=== PATIENT | female | born 1965 | race Caucasian/White ===

== ENCOUNTER → 2017-09-17 | Outpatient (CLI) | payer OTHER ==
[~2017-09-17] MED LIST: ALBU90I INH; CIPR500 PO; DIAZ10 PO; DULO60 PO; FLUO20 PO; HYDACE5 PO; IBUP800 PO; LAMO25 PO; LOVENOX; OXYACE7.5T PO; OXYC5 PO; PHENA200 PO; PRED20 PO; PROCODE120 PO; Percocet 5-3251 EACH PO; QUET25 PO
== END | disposition home or self-care (01) ==
LOC: LAB 15:19
DX: R30.0 Dysuria (principal)
CPT/HCPCS: 87077; 87086; 87186

== ENCOUNTER → 2018-12-24 | Outpatient (CLI) | payer OTHER | END | disposition home or self-care (01) | LOC: LAB 17:48 → LAB SHORT 17:48 | DX: N30.01 Acute cystitis with hematuria (principal); R30.0 Dysuria | CPT/HCPCS: 87077; 87086; 87186 ==

== ENCOUNTER 2020-08-20 23:13 | Observation (INO) | payer OTHER ==
[~2020-08-20] VITALS: Ht 172.7 cm; Wt 117.4 kg
[~2020-08-20 23:13] MED LIST changes: +LAMO100 PO; -LAMO25 PO
[2020-08-20 23:50] LABS: BASOPHILS ABSOLUTE AUTO 0.08 K/mm3 (0.00-0.23); BASOPHILS PERCENT AUTO 1 % (0-2); EOSINOPHILS ABSOLUTE AUTO 0.12 K/mm3 (0.00-0.68); EOSINOPHILS PERCENT AUTO 1 % (0-6); Hemoglobin 14.4 g/dL (11.5-16.0); IMMATURE GRAN ABSOLUTE AUTO 0.06 K/mm3 (0.00-0.10); IMMATURE GRAN PERCENT AUTO 1 % (0-1); LYMPHOCYTES ABSOLUTE AUTO 1.74 K/mm3 (0.84-5.20); LYMPHOCYTES PERCENT AUTO 20 % (21-46); MONOCYTES ABSOLUTE AUTO 0.94 K/mm3 (0.16-1.47); MONOCYTES PERCENT AUTO 11 % (4-13); Mean Corpuscular HGB 30.3 pg (26.0-34.0); Mean Corpuscular HGB Conc 32.7 g/dL (31.5-36.5); Mean Corpuscular Volume 93 fL (80-100); Mean Platelet Volume 9.8 fL (9.1-12.4); NEUTROPHILS ABSOLUTE AUTO 5.81 K/mm3 (1.96-9.15); NEUTROPHILS PERCENT AUTO 66 % (41-73); Platelet Count 313 K/mm3 (150-400); RDW Coefficient Variation 12.9 % (11.7-14.2); RDW Standard Deviation 43.5 fL (35.1-46.3); Red Blood Cell Count 4.75 M/mm3 (3.80-5.20); White Blood Cell Count 8.75 K/mm3 (4.00-11.30)
[2020-08-21 00:12] LABS: Alanine Aminotransfer (ALT/SGP 50 U/L (12-78); Albumin, Blood 3.3 g/dL (3.4-5.0); Albumin/Globulin Ratio 0.8 (0.8-1.8); Alk Phos 207 U/L (50-136); Anion Gap 5 mmol/L (6-16); Aspartate Aminotrans (AST/SGOT 19 U/L (12-37); Bilirubin, Total 0.6 mg/dL (0.1-1.0); Blood Urea Nitrogen 16 mg/dL (8-24); Bun/Creatinine Ratio 17.4 (12.0-20.0); CO2, Blood 26 mmol/L (21-32); Chloride, Blood 109 mmol/L (98-108); Creatinine, Blood 0.92 mg/dL (0.40-1.00); Globulin, Blood 4.1 g/dL (2.2-4.0); Glomerular Filtration Rate >60 (60-); Glucose, Blood 139 mg/dL (70-99); Potassium, Blood 3.8 mmol/L (3.5-5.5); Sodium, Blood 140 mmol/L (136-145); Total Protein, Blood 7.4 g/dL (6.4-8.2); Troponin I <0.015 ng/mL (0.000-0.040)
[2020-08-21 05:55] LABS: Influenza A, PCR Negative (NEGATIVE); Influenza B, PCR Negative (NEGATIVE); Resp Syncytial Virus, PCR Negative (NEGATIVE); SARS-Cov-2 (COVID-19) PCR, MMC Negative (NEGATIVE)
[2020-08-21 08:51] LABS: BASOPHILS ABSOLUTE AUTO 0.07 K/mm3 (0.00-0.23); BASOPHILS PERCENT AUTO 1 % (0-2); EOSINOPHILS ABSOLUTE AUTO 0.15 K/mm3 (0.00-0.68); EOSINOPHILS PERCENT AUTO 2 % (0-6); Hematocrit 43.1 % (33.0-51.0); IMMATURE GRAN ABSOLUTE AUTO 0.07 K/mm3 (0.00-0.10); IMMATURE GRAN PERCENT AUTO 1 % (0-1); LYMPHOCYTES ABSOLUTE AUTO 1.58 K/mm3 (0.84-5.20); LYMPHOCYTES PERCENT AUTO 20 % (21-46); MONOCYTES ABSOLUTE AUTO 0.66 K/mm3 (0.16-1.47); MONOCYTES PERCENT AUTO 8 % (4-13); Mean Corpuscular HGB 29.9 pg (26.0-34.0); Mean Corpuscular HGB Conc 32.5 g/dL (31.5-36.5); Mean Corpuscular Volume 92 fL (80-100); Mean Platelet Volume 9.9 fL (9.1-12.4); NEUTROPHILS ABSOLUTE AUTO 5.59 K/mm3 (1.96-9.15); NEUTROPHILS PERCENT AUTO 69 % (41-73); Platelet Count 299 K/mm3 (150-400); RDW Coefficient Variation 12.9 % (11.7-14.2); RDW Standard Deviation 42.7 fL (35.1-46.3); Red Blood Cell Count 4.69 M/mm3 (3.80-5.20); White Blood Cell Count 8.12 K/mm3 (4.00-11.30)
[2020-08-21 09:14] LABS: Alanine Aminotransfer (ALT/SGP 49 U/L (12-78); Albumin, Blood 3.3 g/dL (3.4-5.0); Albumin/Globulin Ratio 0.8 (0.8-1.8); Alk Phos 195 U/L (50-136); Anion Gap 9 mmol/L (6-16); Aspartate Aminotrans (AST/SGOT 20 U/L (12-37); Bilirubin, Total 1.1 mg/dL (0.1-1.0); Blood Urea Nitrogen 15 mg/dL (8-24); Bun/Creatinine Ratio 19.9 (12.0-20.0); CO2, Blood 26 mmol/L (21-32); CPK Creatine Kinase 53 U/L (26-193); Calcium, Blood 8.9 mg/dL (8.5-10.1); Chloride, Blood 106 mmol/L (98-108); Creatinine, Blood 0.75 mg/dL (0.40-1.00); Globulin, Blood 4.2 g/dL (2.2-4.0); Glomerular Filtration Rate >60 (60-); Glucose, Blood 132 mg/dL (70-99); Potassium, Blood 3.7 mmol/L (3.5-5.5); Sodium, Blood 141 mmol/L (136-145); Total Protein, Blood 7.5 g/dL (6.4-8.2); Troponin I <0.015 ng/mL (0.000-0.040)
[2020-08-21] MEDS ORDERED: Fluocinonide15 GM TOP (12:49)
--- NOTE | 2020-08-21 14:28 | NUR ---
PT ARRIVED IN THE UNIT VIA STRETCHER, PT WAS ABLE TO TRANSFER SBA TO PCU BED, REPORT RECEIVED FROM THAIS WAYNE. PT IS HERE FOR NEW ONSET OF AFIB, CHF AND PNA. PT WAS ON CARDIZEM GTT AT 10MG/HR AND HEPARIN GTT AT 15U/KG/HR. VITALS UPON ARRIVAL HRR AFIB 120-125'S, BP SYSTOLIC 150'S, SATS ABOVE 94% ON RA, AFEBRILE. CARDIZEM GTT TURNED UP TO 15MG/HR PT HR INCREASES UP TO 150'S WITH EXERTION, PT STATED SHE DIDN'T HAVE ANY CHEST PAIN BUT GETS SOB WITH EXERTION AND FEELS THE FLUTTER IN HER CHEST. PT ALERT AND ORIENTED AT BASELINE, PLEASANT AND COOPERATIVE, SBA TO BSC. PT C/O HEADACHE TYLENOL GIVEN SLIGHTLY EFFECTIVE OFFERED COLD WASHCLOTH/ICE PACK. MOLD MAKING SUPERVISOR IN THE ROOM AT THIS TIME DOING ECHO. PT ATE LUNCH WITH NO ISSUES, ABLE TO MAKE NEEDS KNOWN WILL MONITOR UNTIL END OF SHIFT
[2020-08-21 16:49] LABS: CPK Creatine Kinase 72 U/L (26-193); Troponin I <0.015 ng/mL (0.000-0.040)
[2020-08-22 02:36] LABS: Hematocrit 39.8 % (33.0-51.0); Hemoglobin 13.5 g/dL (11.5-16.0); Mean Corpuscular HGB Conc 33.9 g/dL (31.5-36.5); Mean Corpuscular Volume 92 fL (80-100); Mean Platelet Volume 9.8 fL (9.1-12.4); Platelet Count 269 K/mm3 (150-400); RDW Coefficient Variation 12.6 % (11.7-14.2); RDW Standard Deviation 41.8 fL (35.1-46.3); Red Blood Cell Count 4.35 M/mm3 (3.80-5.20); White Blood Cell Count 5.26 K/mm3 (4.00-11.30)
[2020-08-22 02:55] LABS: Albumin, Blood 2.9 g/dL (3.4-5.0); Anion Gap 9 mmol/L (6-16); Blood Urea Nitrogen 15 mg/dL (8-24); Bun/Creatinine Ratio 24.4 (12.0-20.0); CO2, Blood 24 mmol/L (21-32); Calcium, Blood 8.6 mg/dL (8.5-10.1); Chloride, Blood 105 mmol/L (98-108); Creatinine, Blood 0.62 mg/dL (0.40-1.00); Glomerular Filtration Rate >60 (60-); Glucose, Blood 107 mg/dL (70-99); Phosphorus, Blood 3.9 mg/dL (2.5-4.9); Potassium, Blood 3.7 mmol/L (3.5-5.5); Sodium, Blood 138 mmol/L (136-145)
--- NOTE | 2020-08-22 04:42 | NUR ---
SHIFT SUMMARY PATIENT IS ALERT AND ORIENTED AND COOPERATIVE WITH CARE. SLEPT OFF AND ON MOST THE NIGHT. SBA TO THE BATHROOM BECAUSE OF IV LINES AND REPOSITIONS SELF IN BED. 02 SATS >95% ON RA. CARDIZEM DRIP TITRATED TO 10MG/10ML @0209 PT IS A.FIB @104 BPM. CALL LIGHT IN REACH.
--- NOTE | 2020-08-22 17:02 | NUR ---
PT SUMMARY: PT CONVERTED BACK TO SINUS RHYTHM AT 1310 TODAY RATE 70-80'S CARDIZEM GTT WAS STOPPED, PT HAD 3 SEC PAUSE PRIOR TO CONVERSION DR CANTU MADE AWARE, BP SYSTOLIC 108-130'S, SATS ABOVE 95% ON RA, AFEBRILE. HEPARIN GTT WAS STOPPED PT TO START TAKING ASPIRIN 160MG, PT FOR POSS DC IN AM IF STABLE. PT DENIES CHEST PAIN/PRESSURE, MILD SOB. PT GETS UP AND AMBULATE TO THE BATHROOM WITH NO ISSUES, NO OTHER ISSUES ENCOUNTERED FOR THE SHIFT, PT PLEASANT AND COOPERATIVE, WILL MONITOR UNTIL END OF SHIFT.
--- NOTE | 2020-08-23 04:50 | NUR ---
SHIFT SUMMARY PATIENT IS A&O X4, INDEPENDENT IN ROOM. NO COMPLAINTS OF PAIN. SLEPT MOST THE SHIFT. PATIENT STAYED NSR @70-80s THROUGHOUT THE ENITRE SHIFT. 02 SATS 93-95% ON RA, NO COMPLAINTS OF SOB. VSS, NO ACUTE CHANGES. CALL LIGHT IN REACH.
[2020-08-23 05:03] LABS: Anion Gap 6 mmol/L (6-16); Blood Urea Nitrogen 20 mg/dL (8-24); Bun/Creatinine Ratio 24.8 (12.0-20.0); CO2, Blood 27 mmol/L (21-32); Calcium, Blood 8.7 mg/dL (8.5-10.1); Chloride, Blood 106 mmol/L (98-108); Creatinine, Blood 0.81 mg/dL (0.40-1.00); Glomerular Filtration Rate >60 (60-); Glucose, Blood 121 mg/dL (70-99); Phosphorus, Blood 3.6 mg/dL (2.5-4.9); Sodium, Blood 139 mmol/L (136-145)
[2020-08-23] MEDS ORDERED: ASPI81CH PO (10:02)
[2020-08-23] MEDS ORDERED: FURO20 PO (10:04)
[2020-08-23] MEDS ORDERED: LEVO750 PO (10:05)
[2020-08-23] MEDS ORDERED: PROBIOTIC PO (10:05)
[2020-08-23] MEDS ORDERED: Lopressor 50 mg50 MG PO (10:07)
--- NOTE | 2020-08-23 12:34 | NUR ---
DISCHARGE SUMMARY PT A&Ox4; GROGGY WHEN FIRST WAKING UP. PT SBA IN ROOM. PT DENIES PAIN, CHEST PAIN, NAUSEA, SOB, DIZZINESS/LIGHTHEADEDNESS. PT RECEIVING IV ANTIBIOICS; TRANSITIONING TO PO AT HOME. PER TELE PT NSR T/O SHIFT. VSS. NO OTHER ACUTE CHAGNES NOTED DURING SHIFT. PT AND SPOUSE EDUCATED ON DISCHARGE INSTRUCTIONS, FOLLOW UP APPOINTMENT AND MEDICATIONS. PT EDUCATED ON CHF; WEIGHT MONITORING, SYMPTOMS MANAGEMENT AND DIETARY CHAGNES; AND AFIB. PRESCRIPTIONS CALLED INTO [facility], PER PT REQUEST. PT LEFT ROOM VIA WHEELCHAIR AT 1142.
[2020-11-16] MEDS ORDERED: ELIQUIS5 MG PO (15:29)
[2020-11-16] MEDS ORDERED: GABA100 PO (15:35)
[2020-11-16] MEDS ORDERED: MULVITA PO (15:35)
== END 2020-08-23 11:43 | disposition home or self-care (01) ==
LOC: ER 23:13 → ERHOLD 23:14 → ER 08-21 01:51 → ERHOLD 08-21 01:51 → PCU 08-21 01:51 → ERHOLD 08-21 12:45 → PCU 08-23 11:43
PROVIDERS: Emergency Medicine; Internal Medicine; ADMIT Internal Medicine
PROC: 3E0234Z Introduction of Serum, Toxoid and Vaccine into Muscle, Percutaneous Approach (ICD-10-PCS; principal; 2020-08-21)
DX: I50.31 Acute diastolic (congestive) heart failure (principal); J18.9 Pneumonia, unspecified organism; I48.0 Paroxysmal atrial fibrillation; Z23 Encounter for immunization; Z20.822 Contact with and (suspected) exposure to COVID-19; E66.9 Obesity, unspecified; Z68.38 Body mass index [BMI] 38.0-38.9, adult; Z87.891 Personal history of nicotine dependence
CPT/HCPCS: 0241U; 36415; 71046; 71260; 80053; 80069; 82550; 83735; 83880; 84145; 84484; 85025; 85027; 85379; 85730; 93005; 93010; 93306; 93970; 96361; 96365; 96367; 96372; 96375; 96376; 99285-25; A9270; G0008; G0378; J0456; J0696; J1160; J1644; J1650; J1940; J1956; J3480; J7030; J7050; Q2038; Q9967

== ENCOUNTER 2020-11-23 13:32 | Day surgery (SDC) | payer OTHER ==
[~2020-11-23] VITALS: Ht 172.7 cm; Wt 116.4 kg
[~2020-11-23 13:32] MED LIST changes: +ASPI81CH PO; +ELIQUIS5 MG PO; +FURO20 PO; +Fluocinonide15 GM TOP; +GABA100 PO; +LEVO750 PO; +Lopressor 50 mg50 MG PO; +MULVITA PO; +PROBIOTIC PO
--- NOTE | 2020-11-23 15:39 | NUR ---
11/23/20 1539 Jacque Samuel DID NOT REACH CECUM PER DR PINEDA.
== END 2020-11-23 16:08 | disposition home or self-care (01) ==
LOC: ORSCSDS 13:32
PROVIDERS: Surgery
PROC: 0DBP8ZX Excision of Rectum, Via Natural or Artificial Opening Endoscopic, Diagnostic (ICD-10-PCS; principal; 2020-11-23 14:30)
PROC: 0DBM8ZX Excision of Descending Colon, Via Natural or Artificial Opening Endoscopic, Diagnostic (ICD-10-PCS; principal; 2020-11-23 14:30)
PROC: 0DBN8ZX Excision of Sigmoid Colon, Via Natural or Artificial Opening Endoscopic, Diagnostic (ICD-10-PCS; principal; 2020-11-23 14:30)
DX: Z12.11 Encounter for screening for malignant neoplasm of colon (principal); K63.5 Polyp of colon; K62.1 Rectal polyp; I48.91 Unspecified atrial fibrillation; Z79.01 Long term (current) use of anticoagulants; Z79.82 Long term (current) use of aspirin; K64.4 Residual hemorrhoidal skin tags; I10 Essential (primary) hypertension; Z87.891 Personal history of nicotine dependence; E66.01 Morbid (severe) obesity due to excess calories; Z68.39 Body mass index [BMI] 39.0-39.9, adult; Z79.899 Other long term (current) drug therapy
CPT/HCPCS: 88305; J2704; J7120

== ENCOUNTER → 2022-02-22 | Outpatient (CLI) | payer OTHER ==
[~2022-02-22] MED LIST changes: +ELIQUIS5 M3 PO; +FUROSEMIDE20 MG PO; +K-Dur20 MEQ PO; +LAMOTRIGINE100 M1 PO; +METOPROLOL TART50 M9 PO
== END | disposition home or self-care (01) ==
LOC: LAB 13:40 → LAB SHORT 13:40
DX: R30.9 Painful micturition, unspecified (principal)
CPT/HCPCS: 87077; 87086; 87186

== ENCOUNTER 2022-05-25 14:33 | Inpatient (IN) | payer OTHER ==
[~2022-05-25] VITALS: Ht 172.7 cm; Wt 109.7 kg
[~2022-05-25 14:33] MED LIST changes: -DIGOX125 MC1 PO; -DILT180 PO; -ENOX120I SC; -WARF5 PO
[2022-05-25 15:37] LABS: BASOPHILS ABSOLUTE AUTO 0.05 K/mm3 (0.00-0.23); BASOPHILS PERCENT AUTO 1 % (0-2); EOSINOPHILS ABSOLUTE AUTO 0.14 K/mm3 (0.00-0.68); EOSINOPHILS PERCENT AUTO 2 % (0-6); Hematocrit 41.5 % (33.0-51.0); Hemoglobin 13.8 g/dL (11.5-16.0); IMMATURE GRAN ABSOLUTE AUTO 0.07 K/mm3 (0.00-0.10); IMMATURE GRAN PERCENT AUTO 1 % (0-1); LYMPHOCYTES ABSOLUTE AUTO 2.48 K/mm3 (0.84-5.20); LYMPHOCYTES PERCENT AUTO 29 % (21-46); MONOCYTES ABSOLUTE AUTO 0.56 K/mm3 (0.16-1.47); MONOCYTES PERCENT AUTO 7 % (4-13); Mean Corpuscular HGB Conc 33.3 g/dL (31.5-36.5); Mean Corpuscular Volume 93 fL (80-100); Mean Platelet Volume 10.9 fL (9.1-12.4); NEUTROPHILS PERCENT AUTO 61 % (41-73); Platelet Count 336 K/mm3 (150-400); RDW Standard Deviation 43.8 fL (35.1-46.3); Red Blood Cell Count 4.45 M/mm3 (3.80-5.20)
[2022-05-25 16:35] LABS: Magnesium, Blood 1.9 mg/dL (1.6-2.4)
[2022-05-25 16:36] LABS: Bun/Creatinine Ratio 22.5 (12.0-20.0); Calcium, Blood 9.4 mg/dL (8.5-10.1); Creatinine, Blood 0.71 mg/dL (0.40-1.00); Potassium, Blood 4.3 mmol/L (3.5-5.5)
--- NOTE | 2022-05-26 01:28 | NUR ---
PT PLACED ON 2L O2 VIA NC DUE TO POSSIBLE APNEA/TEMPORARY DESATURATION. PT REMAINS A&O X4, RESPONDS TO VERBAL STIMULI, CALL LIGHT IN REACH
[2022-05-26 04:17] LABS: BASOPHILS ABSOLUTE AUTO 0.07 K/mm3 (0.00-0.23); BASOPHILS PERCENT AUTO 1 % (0-2); EOSINOPHILS ABSOLUTE AUTO 0.17 K/mm3 (0.00-0.68); EOSINOPHILS PERCENT AUTO 2 % (0-6); Hematocrit 42.4 % (33.0-51.0); Hemoglobin 13.9 g/dL (11.5-16.0); IMMATURE GRAN ABSOLUTE AUTO 0.06 K/mm3 (0.00-0.10); IMMATURE GRAN PERCENT AUTO 1 % (0-1); LYMPHOCYTES ABSOLUTE AUTO 2.35 K/mm3 (0.84-5.20); LYMPHOCYTES PERCENT AUTO 23 % (21-46); MONOCYTES ABSOLUTE AUTO 0.79 K/mm3 (0.16-1.47); MONOCYTES PERCENT AUTO 8 % (4-13); Mean Corpuscular HGB 30.5 pg (26.0-34.0); Mean Corpuscular HGB Conc 32.8 g/dL (31.5-36.5); Mean Corpuscular Volume 93 fL (80-100); Mean Platelet Volume 9.8 fL (9.1-12.4); NEUTROPHILS ABSOLUTE AUTO 6.63 K/mm3 (1.96-9.15); NEUTROPHILS PERCENT AUTO 66 % (41-73); Platelet Count 325 K/mm3 (150-400); RDW Coefficient Variation 13.2 % (11.7-14.2); RDW Standard Deviation 44.3 fL (35.1-46.3); Red Blood Cell Count 4.55 M/mm3 (3.80-5.20); White Blood Cell Count 10.07 K/mm3 (4.00-11.30)
[2022-05-26 04:40] LABS: Bun/Creatinine Ratio 24.7 (12.0-20.0); Calcium, Blood 9.2 mg/dL (8.5-10.1); Creatinine, Blood 0.81 mg/dL (0.40-1.00)
--- NOTE | 2022-05-26 06:40 | NUR ---
SUMMARY [facility] APPROX 2230, PT IS A&O X4, ON RA AT THIS TIME, SPO2 >93%, RESP UNLABORED AT REST, DID SHOW SOME APNEA WHILE SLEEPING, BP STABLE, CARDIZEM GTT INFUING @ 15ML/HR, PT REMAINS IN AFIC 110-130, CONTINUES TO DENY CP/PRESSURE. PT IS STAND BY ASSIST TO THE BATHROOM FOR SAFETY, CALLS FOR ASSISTANCE PRN. MELATONIN 10 MG X1 GIVEN FOR SLEEP, PT RESTING QUIETLY AT THIS TIME, CALL LIGHT IN REACH, WCTM & REPORT TO DAY RN
[2022-05-26 12:51] LABS: U Amphetamine Screen DETECTED; U Barbituate Screen Not Detected; U Benzodiazapine Screen Not Detected; U Buprenorphine Screen Not Detected; U Cannabinoids Screen Not Detected; U Cocaine Screen Not Detected; U Methadone Screen Not Detected; U Methamphetamine Screen DETECTED; U Opiates Screen Not Detected; U Oxycodone Screen Not Detected; U Phencyclidine Screen Not Detected; U Propoxyphene Screen Not Detected
--- NOTE | 2022-05-26 13:20 | NUR ---
DAY SHIFT NOTES: PT WAS SEEN BY PLANT MAINTENANCE ENGINEER THIS AM DR EUGENE, MEDICATIONS CHNAGED DOSE OF METOPROLOL INCREASED AND PO CARDIZEM ORDERED WELL. PT WAS THEN TITRATED OFF OF THE DILTIAZEM GTT. 5-20 MINS AFTER PO CARDIZEM AND METOPROLOL WAS GIVEN PT FAMILY AT BEDSIDE CALLED REPORTING THERE'S SOME THING GOING ON WITH THE PT, THIS RN WENT AND ASSESS PT, PT REPORTED FEELING LIGHTHEADED AND DIZZY KEEPS SAYING SHE FEELS LIKE THERE'S SOMETHING IN HER FACE AND KEEPS WIPING IT OFF, STARTED BEING RESTLESS KEEPS BLINKING HER EYES, ACTING FIDGETY. DR EUGENE STOPPED BY TO SEE PT ADVISED TO MONITOR FOR NOW SINCE VITALS ARE STABLE ALSO ORDERED UTOX AND CAME BACK POSITIVE FOR AMPHETAMINES/METHAMPETHAMINES THAT EXPLAINED PT SYMPTOMS EARLIER. NO OTHER ISSUES ENCOUNTERED HRR STILL AFIB NOW RATED CONTROLLED AT 90-100'S, BP SYSTOLIC 110'S-130'S, SATS ABOVE 90% ON RA, AFEBRILE. ECHO ONGOING IN THE PT'S ROOM AT THIS TIME. WILL CONTINUE TO MONITOR
--- NOTE | 2022-05-26 18:06 | NUR ---
PT SUMMARY: SEE PREVIOUS NOTES. PT WAS SUPPOSED TO BE DISCHARGED TODAY ASKED PROVIDER TO SPEAK WITH THE TRACK REPAIR LABORER FIRST RECOMMENDED TO KEEP PT FOR NOW PT HASN'T STARTED/BRIDGED YET TO COUMADIN. PT AGREEABLE. HRR REMAINED AFIB CONTROLLED RATE OF 90-110'S FOR THE REST OF THE SHIFT, SBP 100'S, SATS ABOVE 90% ON RA, AFEBRILE. NO OTHER ISSUES ENCOUNTERED FOR THE SHIFT, PT WAS INFORMED ABOUT UTOX RESULT EVEN IN DENIAL INFORMATION AND PLAN OF CARE WAS STILL PROVIDED, PT WAS ANXIOUS MOST OF THE TIME. PT REMAINS INDEPENDENT IN THE ROOM, ABLE TO MAKE NEEDS KNOWN WILL REPORT TO ONCOMING SHIFT
--- NOTE | 2022-05-26 20:27 | NUR ---
ASSUMPTION OF CARE THIS RN ASSUMED CARE AT 1915. PT LYING IN BED, APPEARS A LITTLE PALE AND TIRED. PT A&O X4, RESPONDING APPROPRIATELY TO QUESTIONS. PT SEEMS MILDLY ANXIOUS AND RESTLESS. DENIES CHEST PAIN OR CHEST PRESSURE, REPORT VERY MILD TIGHTNESS IN CHEST AND MILD SOB. DENIES DIZZINESS, LIGHTHEADNESS OR N/V. PT RATES TIGHTNESS A 2/10, DENIES RADIATING PAIN; REPORTS IS NOT NEW SINCE BEING IN HOSPITAL, STATES "IT SEEMS TO BE THERE WHEN I START FEELING A LITTLE SHORT OF BREATH". PT REPORTS LOWER BACK PAIN AND A SLIGHT HEADACHE; /10. MEDICATED PER EMAR. LUNG SOUNDS DIMINISHED, NO DYSPNEA NOTED. PT NOT MAKING MUCH EYE CONTACT BUT INTERACTING WITH STAFF AND PLEASANT. PT STATES IS "CONFUSED" AND "UNSURE" OF HOW DRUG USE CAN BE RELATED TO EVENT LEADING TO COMING TO HOSPITAL. EDUCATION PROVIDED, PT RECEPTIVE AND ASKS QUESTIONS. PT ALSO REPORTS NOT TAKING MEDICATIONS PRESCRIBED DUE TO "FORGETFULNESS" AND NOT HAVING ENOUGH MEDICATION. PT NOW WATCHING TV AND CALL LIGHT IN REACH
--- NOTE | 2022-05-26 21:13 | NUR ---
UPON REASSESSMENT OF PAIN, PT REPORTS RELIEF WITH PAIN LEVEL NOW 3/10. STATES SHE IS COMFORTABLE. PT APPEARS COMFORTABLE RESTING IN BED AND ON CELL PHONE. DOES NOT VERBALIZE ANY NEEDS AT THIS TIME.
[2022-05-27 03:52] LABS: BASOPHILS ABSOLUTE AUTO 0.06 K/mm3 (0.00-0.23); BASOPHILS PERCENT AUTO 1 % (0-2); EOSINOPHILS ABSOLUTE AUTO 0.17 K/mm3 (0.00-0.68); EOSINOPHILS PERCENT AUTO 2 % (0-6); Hematocrit 43.3 % (33.0-51.0); Hemoglobin 14.6 g/dL (11.5-16.0); IMMATURE GRAN ABSOLUTE AUTO 0.04 K/mm3 (0.00-0.10); IMMATURE GRAN PERCENT AUTO 1 % (0-1); LYMPHOCYTES ABSOLUTE AUTO 2.87 K/mm3 (0.84-5.20); LYMPHOCYTES PERCENT AUTO 39 % (21-46); MONOCYTES ABSOLUTE AUTO 0.61 K/mm3 (0.16-1.47); MONOCYTES PERCENT AUTO 8 % (4-13); Mean Corpuscular HGB 30.9 pg (26.0-34.0); Mean Corpuscular HGB Conc 33.7 g/dL (31.5-36.5); Mean Corpuscular Volume 92 fL (80-100); Mean Platelet Volume 9.6 fL (9.1-12.4); NEUTROPHILS ABSOLUTE AUTO 3.59 K/mm3 (1.96-9.15); NEUTROPHILS PERCENT AUTO 49 % (41-73); Platelet Count 355 K/mm3 (150-400); RDW Coefficient Variation 12.9 % (11.7-14.2); RDW Standard Deviation 43.3 fL (35.1-46.3); Red Blood Cell Count 4.72 M/mm3 (3.80-5.20); White Blood Cell Count 7.34 K/mm3 (4.00-11.30)
[2022-05-27 04:05] LABS: Prothrombin Time Results 10.5 Sec (9.7-11.5)
[2022-05-27 04:26] LABS: Albumin, Blood 3.1 g/dL (3.4-5.0); Albumin/Globulin Ratio 0.8 (0.8-1.8); Bilirubin, Total 0.8 mg/dL (0.1-1.0); Bun/Creatinine Ratio 22.5 (12.0-20.0); Calcium, Blood 9.1 mg/dL (8.5-10.1); Creatinine, Blood 0.8 mg/dL (0.40-1.00); Globulin, Blood 4.1 g/dL (2.2-4.0); Potassium, Blood 4.3 mmol/L (3.5-5.5); Total Protein, Blood 7.2 g/dL (6.4-8.2)
--- NOTE | 2022-05-27 06:15 | NUR ---
SHIFT SUMMARY PT A&O X4. VSS, HR AFIB W/RATE IN 100'S, SBP 100'S-1 TEENS, 02 >94% ON RA. DENIES CHEST PAIN OR CHEST PRESSURE. REPORTS MILD SOB, BUT SEEMED TO IMPROVE THROUGHOUT SHIFT. PT WAS ANXIOUS ON AND OFF THROUGHOUT BEGINNING OF SHIFT, BUT IMPROVED AND PT WAS ABLE TO REST. REPORTS PAIN IN LOWER BACK AND A MILD HEADACHE. MEDICATED PER EMAR AND REPORTS RELIEF. PT UP TO RESTROOM, INDEPENDENTLY. NO ACUTE CHANGES THROUGHOUT SHIFT. CALL LIGHT IN REACH
--- NOTE | 2022-05-27 17:53 | NUR ---
Shift Summary Pt has been independent in room, resting quietly. Pt amlbulated around the unit with a family member for escort. Heart rate has slowly come down to the 70's to 80's on telemetry. Pt states that they will still occasionally feel their heart race. Pt has denied any c/o pain or discomfort. Blood pressure has remained stable with SBP >100. No acute changes in condition. Pt has called appropriately and cooperated with all cares.
--- NOTE | 2022-05-27 18:17 | NUR ---
Update Heart rhythm converted to Normal Sinus Rhythm at approximately 1640. Rate currently 68 bpm.
--- NOTE | 2022-05-27 20:56 | NUR ---
ASSUMPTION OF CARE THIS RN ASSUMED CARE OF PT AT 1915. PT RESTING IN BED, WATCHING TV. PT INTERACTIVE AND TALKATIVE WITH STAFF. STATES SHE IS FEELING BETTER. VSS. DENIES SOB, CHEST PAIN OR CHEST PRESSURE. DENIES ANY PAIN. REPORTS NO CONCERNS AT THIS TIME. PT REQUESTS SNACK.
[2022-05-28 05:07] LABS: International Normalized Ratio 1.05
--- NOTE | 2022-05-28 05:34 | NUR ---
SHIFT SUMMARY PT A&O X4. SLEPT MOST SHIFT, REPORTS GENERAL FATIGUE. VSS; SBP 120'S, HR 60 - 70'S, O2 >94% ON RA. AFTER METOPROLOL DOSE AND WHILE SLEEPING, PT'S HR IN 50'S - 60'S. PT DENIES SOB, CHEST OR CHEST PRESSURE THROUGHOUT SHIFT. NO OTHER CHANGES THROUGHOUT SHIFT
[2022-05-28] MEDS ORDERED: DILT180 PO (12:39)
[2022-05-28] MEDS ORDERED: DIGOX125 MC1 PO (12:39)
[2022-05-28] MEDS ORDERED: ENOX120I SC (12:40)
[2022-05-28] MEDS ORDERED: WARF5 PO (12:41)
--- NOTE | 2022-05-28 13:31 | NUR ---
discharge summary: All discharge instructions were clearly understood, multiple questions answered, and educated patient, call to pharmacy on verification of coumadin dosing. patient to follow up with bridge and consult at pcp appointment, patient in no sign of acute distress. patient wheeled out by rn, tele and lines were all dc'd no concerns from this investment underwriter or patient at this time. patient denied chest pain or pressure, no respiratory distress. appropriate for discharge.
== END 2022-05-28 13:31 | disposition home or self-care (01) | DRG 309 ==
LOC: ER 14:33 → PCU 14:34
PROVIDERS: Family Medicine; Internal Medicine; Internal Medicine Cardiovascular Disease; Student in an Organized Health Care Education/Training Program; ADMIT Internal Medicine
DX: I48.0 Paroxysmal atrial fibrillation (principal); I50.32 Chronic diastolic (congestive) heart failure; I11.0 Hypertensive heart disease with heart failure; F15.10 Other stimulant abuse, uncomplicated; R79.89 Other specified abnormal findings of blood chemistry; W18.30XA Fall on same level, unspecified, initial encounter; G40.909 Epilepsy, unspecified, not intractable, without status epilepticus; I73.00 Raynaud's syndrome without gangrene; I70.0 Atherosclerosis of aorta; F17.290 Nicotine dependence, other tobacco product, uncomplicated; F12.10 Cannabis abuse, uncomplicated; F10.10 Alcohol abuse, uncomplicated; Z98.890 Other specified postprocedural states; Z87.81 Personal history of (healed) traumatic fracture; Z71.51 Drug abuse counseling and surveillance of drug abuser; Z79.01 Long term (current) use of anticoagulants; Z79.899 Other long term (current) drug therapy; Z71.41 Alcohol abuse counseling and surveillance of alcoholic
CPT/HCPCS: 36415; 36416; 71045; 80048; 80053; 83735; 83880; 84443; 84484; 85025; 85610; 93005; 93010; 93246; 93306; 96372; 96375; 96376; A9270; G0378; J1160; J1650; J1940; J3475

== ENCOUNTER → 2022-05-25 | Outpatient (CLI) | payer OTHER ==
[~2022-05-25] MED LIST changes: +DIGOX125 MC1 PO; +DILT180 PO; +ENOX120I SC; +METO50 PO; -METOPROLOL TART50 M9 PO; +WARF5 PO
[2022-05-25 14:33] LABS: BASOPHILS ABSOLUTE AUTO 0.07 K/mm3 (0.00-0.23); BASOPHILS PERCENT AUTO 1 % (0-2); EOSINOPHILS PERCENT AUTO 1 % (0-6); Hematocrit 42.8 % (33.0-51.0); Hemoglobin 14.1 g/dL (11.5-16.0); IMMATURE GRAN ABSOLUTE AUTO 0.06 K/mm3 (0.00-0.10); IMMATURE GRAN PERCENT AUTO 1 % (0-1); LYMPHOCYTES ABSOLUTE AUTO 2.34 K/mm3 (0.84-5.20); LYMPHOCYTES PERCENT AUTO 27 % (21-46); MONOCYTES ABSOLUTE AUTO 0.54 K/mm3 (0.16-1.47); MONOCYTES PERCENT AUTO 6 % (4-13); Mean Corpuscular HGB 30.6 pg (26.0-34.0); Mean Corpuscular HGB Conc 32.9 g/dL (31.5-36.5); Mean Corpuscular Volume 93 fL (80-100); Mean Platelet Volume 10.3 fL (9.1-12.4); NEUTROPHILS ABSOLUTE AUTO 5.64 K/mm3 (1.96-9.15); NEUTROPHILS PERCENT AUTO 65 % (41-73); Platelet Count 319 K/mm3 (150-400); RDW Coefficient Variation 13.2 % (11.7-14.2); RDW Standard Deviation 44.1 fL (35.1-46.3); Red Blood Cell Count 4.61 M/mm3 (3.80-5.20); White Blood Cell Count 8.75 K/mm3 (4.00-11.30)
[2022-05-25 14:45] LABS: Albumin, Blood 3.5 g/dL (3.4-5.0); Albumin/Globulin Ratio 0.9 (0.8-1.8); Bilirubin, Total 0.6 mg/dL (0.1-1.0); Calcium, Blood 9.3 mg/dL (8.5-10.1); Creatinine, Blood 0.8 mg/dL (0.40-1.00); Globulin, Blood 4.1 g/dL (2.2-4.0); Potassium, Blood 4.1 mmol/L (3.5-5.5); Total Protein, Blood 7.6 g/dL (6.4-8.2)
== END | disposition home or self-care (01) ==
LOC: LAB 14:25 → LAB SHORT 14:25
PROVIDERS: Physician Assistant
DX: R06.00 Dyspnea, unspecified (principal)
CPT/HCPCS: 80053; 84484; 85025

== ENCOUNTER 2022-10-18 19:00 | Inpatient (IN) | payer OTHER ==
[~2022-10-18] VITALS: Ht 172.7 cm; Wt 105.3 kg
[~2022-10-18 19:00] MED LIST changes: +CEPH500 PO; +Cyclobenzaprine5 MG PO; +DIGOX125 MC1 PO; +DILT120ERA PO; +ENOX120I SC; +METFORMIN HCL500 M1 PO; +TRAM50 PO; +WARF5 PO
[2022-10-18 19:44] LABS: BASOPHILS ABSOLUTE AUTO 0.06 K/mm3 (0.00-0.23); BASOPHILS PERCENT AUTO 1 % (0-2); EOSINOPHILS ABSOLUTE AUTO 0.12 K/mm3 (0.00-0.68); EOSINOPHILS PERCENT AUTO 1 % (0-6); Hematocrit 45.2 % (33.0-51.0); Hemoglobin 14.6 g/dL (11.5-16.0); IMMATURE GRAN ABSOLUTE AUTO 0.04 K/mm3 (0.00-0.10); IMMATURE GRAN PERCENT AUTO 0 % (0-1); LYMPHOCYTES ABSOLUTE AUTO 3.05 K/mm3 (0.84-5.20); LYMPHOCYTES PERCENT AUTO 32 % (21-46); MONOCYTES ABSOLUTE AUTO 1.08 K/mm3 (0.16-1.47); MONOCYTES PERCENT AUTO 11 % (4-13); Mean Corpuscular HGB 28.4 pg (26.0-34.0); Mean Corpuscular HGB Conc 32.3 g/dL (31.5-36.5); Mean Corpuscular Volume 88 fL (80-100); Mean Platelet Volume 9.8 fL (9.1-12.4); NEUTROPHILS ABSOLUTE AUTO 5.34 K/mm3 (1.96-9.15); NEUTROPHILS PERCENT AUTO 55 % (41-73); Platelet Count 341 K/mm3 (150-400); RDW Coefficient Variation 13.5 % (11.7-14.2); RDW Standard Deviation 43.8 fL (35.1-46.3); Red Blood Cell Count 5.14 M/mm3 (3.80-5.20); White Blood Cell Count 9.69 K/mm3 (4.00-11.30)
[2022-10-18 20:59] LABS: Alanine Aminotransfer (ALT/SGP 32 U/L (12-78); Albumin, Blood 3.4 g/dL (3.4-5.0); Albumin/Globulin Ratio 0.8 (0.8-1.8); Alk Phos 211 U/L (50-136); Anion Gap 4 mmol/L (6-16); Aspartate Aminotrans (AST/SGOT 20 U/L (12-37); Bilirubin, Total 0.9 mg/dL (0.1-1.0); Blood Urea Nitrogen 23 mg/dL (8-24); Bun/Creatinine Ratio 27.9 (12.0-20.0); CO2, Blood 27 mmol/L (21-32); Calcium, Blood 9.4 mg/dL (8.5-10.1); Chloride, Blood 107 mmol/L (98-108); Creatinine, Blood 0.83 mg/dL (0.40-1.00); Globulin, Blood 4.3 g/dL (2.2-4.0); Glomerular Filtration Rate 82 (60-); Glucose, Blood 121 mg/dL (70-99); Potassium, Blood 4.8 mmol/L (3.5-5.5); Sodium, Blood 138 mmol/L (136-145); Total Protein, Blood 7.7 g/dL (6.4-8.2)
[2022-10-18 21:28] LABS: Thyroid Stimulating Hormone <0.005 uIU/mL (0.360-4.800)
[2022-10-18 21:49] LABS: Base Excess Venous 0.7 mmol/L; Bicarbonate Venous 25.2 mmol/L (24.0-30.0); PCO2 Venous 37.6 mmHg (38-42); pH Blood Venous 7.43 (7.34-7.37)
[2022-10-18 22:12] LABS: Influenza A, PCR NEGATIVE (NEGATIVE); Influenza B, PCR NEGATIVE (NEGATIVE); Resp Syncytial Virus, PCR NEGATIVE (NEGATIVE); SARS-Cov-2 (COVID-19) PCR, MMC NEGATIVE (NEGATIVE)
[2022-10-18 22:56] LABS: Digoxin (Lanoxin) 0.14 ug/mL (0.80-2.00); Free Thyroxine 1.56 ng/dL (0.70-1.60); Triiodothyronine, Free 4.96 pg/mL (2.18-3.98)
[2022-10-19 00:28] LABS: U Amphetamine Screen Not Detected; U Barbituate Screen Not Detected; U Benzodiazapine Screen Not Detected; U Buprenorphine Screen Not Detected; U Cannabinoids Screen Not Detected; U Cocaine Screen Not Detected; U Methadone Screen Not Detected; U Methamphetamine Screen DETECTED; U Opiates Screen Not Detected; U Oxycodone Screen Not Detected; U Phencyclidine Screen Not Detected; U Propoxyphene Screen Not Detected
--- NOTE | 2022-10-19 02:48 | NUR ---
ASSUMPTION OF CARE/TRANSFER NOTE THIS RN RECEIVED REPORT FROM MIRELA WAYNE IN THE ED VIA TELEPHONE. PATIENT TRANSFERRED TO PCU 20 AT 0130. PATIENT ALERT AND ORIENTED FULLY BUT APPEARS RESTLESS AND IS ITCHING SKIN AND MOVING EXTREMETIES CONSTANTLY. PATIENT APPEARS UNSURE ABOUT SOME MEDICAL HISTORY INFORMATION WELL. MED REC DONE PER PATIENT'S KNOWLEDGE OF CURRENT MEDICATIONS. DILT GTT INFUSING UPON ARRIVAL. MD WITH ORDERS TO DC GTT; GTT DC'D. MEDICATED PER EMAR. AFIB NOTED ON MONITOR; CURRENT'Y MAINTAINING 90-100'S. BP STABLE WITH SBP 120'S. AFEBRILE. ON RA WITH SPO2 >90%. PATIENT CONTINUES TO HAVE SOB, WHICH WORSENS WITH EXERTION AND LYING FLAT. EXPIRATORY WHEEZES NOTED T/O LUNG LOBES. PATIENT WAS ABLE TO AMBULATE FROM GURNEY TO BED, UNSTEADY GAIT NOTED. BED ALARM ON. BED IN LOWEST POSITION AND CALL LIGHT WITHIN REACH.
[2022-10-19 04:04] LABS: BASOPHILS ABSOLUTE AUTO 0.06 K/mm3 (0.00-0.23); BASOPHILS PERCENT AUTO 1 % (0-2); EOSINOPHILS ABSOLUTE AUTO 0.14 K/mm3 (0.00-0.68); EOSINOPHILS PERCENT AUTO 1 % (0-6); Hematocrit 41.6 % (33.0-51.0); Hemoglobin 13.6 g/dL (11.5-16.0); IMMATURE GRAN ABSOLUTE AUTO 0.04 K/mm3 (0.00-0.10); IMMATURE GRAN PERCENT AUTO 0 % (0-1); LYMPHOCYTES ABSOLUTE AUTO 3.68 K/mm3 (0.84-5.20); LYMPHOCYTES PERCENT AUTO 34 % (21-46); MONOCYTES ABSOLUTE AUTO 1.13 K/mm3 (0.16-1.47); MONOCYTES PERCENT AUTO 11 % (4-13); Mean Corpuscular HGB 28.3 pg (26.0-34.0); Mean Corpuscular HGB Conc 32.7 g/dL (31.5-36.5); Mean Corpuscular Volume 87 fL (80-100); Mean Platelet Volume 9.9 fL (9.1-12.4); NEUTROPHILS ABSOLUTE AUTO 5.74 K/mm3 (1.96-9.15); NEUTROPHILS PERCENT AUTO 53 % (41-73); Platelet Count 276 K/mm3 (150-400); RDW Coefficient Variation 13.7 % (11.7-14.2); White Blood Cell Count 10.79 K/mm3 (4.00-11.30)
[2022-10-19 04:19] LABS: International Normalized Ratio 1.13; Prothrombin Time Results 11.8 Sec (9.7-11.5)
[2022-10-19 04:28] LABS: Magnesium, Blood 1.5 mg/dL (1.6-2.4)
[2022-10-19 04:29] LABS: Albumin, Blood 3.4 g/dL (3.4-5.0); Albumin/Globulin Ratio 0.9 (0.8-1.8); Bilirubin, Total 1.2 mg/dL (0.1-1.0); Bun/Creatinine Ratio 35.4 (12.0-20.0); Calcium, Blood 9.3 mg/dL (8.5-10.1); Creatinine, Blood 0.71 mg/dL (0.40-1.00); Globulin, Blood 3.9 g/dL (2.2-4.0); Potassium, Blood 4.3 mmol/L (3.5-5.5); Total Protein, Blood 7.3 g/dL (6.4-8.2)
--- NOTE | 2022-10-19 04:50 | NUR ---
SHIFT SUMMARY NO ACUTE CHANGES SINCE PREVIOUS NOTE. SEE PREVIOUS NOTE. PATIENT RESTING AT THIS TIME. NO CHANGES TO NEURO. PATIENT CONTINUES TO BE IN AFIB WITH HR MAINTAINING 110-120'S AT THIS TIME. DENIES CHEST PAIN/PRESSURE. ENDORSES SOB AT REST AND WHILE LYING FLAT. BP STABLE. WITH SBP 120-130'S. ON RA WITH SPO2 >92%. ABLE TO MAKE NEEDS KNOWN. BED ALARM ON FOR SAFETY. BED IN LOWEST POSITION AND CALL LIGHT WITHIN REACH. THIS RN WILL CONTINUE TO MONITOR UNTIL SHIFT CHANGE AT 0700.
--- NOTE | 2022-10-19 06:13 | NUR ---
PATIENT UPDATE CALL PLACED TO MD SPRING REGARDING PATIENT SUSTAINING HR IN THE 140'S. MD SPRING WITH ORDERS TO GIVE AM DOSE OF PO METOPROLOL NOW. MEDICATED PER ORDER, SEE EMAR. HTN NOTED. WILL CONTINUE TO MONITOR AND REPORT TO ONCOMING RN.
--- NOTE | 2022-10-19 18:51 | NUR ---
PT CONTINUES WITH AFIB T/O THE DAY. CARDIZEM DRIP RESUMED WHICH IS INFUSING AT 10ML/HR AT THIS TIME. BP SOFT LOPRESSOR WAS HELD FOR BEING OUT OF RANGE FOR BP. DENIES CP, REPORTS SOME SOB WITH ACTYIVITY. SHE IS SBA TO BATHROOM, HAD SHOWER TODAY. NADN. VSS. PT WAS ANXIOUS AND AGITATED AT THE BEGINNING THE SHIFT WHICH HAS NOW RESOLVED. PT HAS BEEN RESTING WELL IN BED T/O THE DAY WATCHING TV. WILL MONITOR
--- NOTE | 2022-10-20 01:02 | NUR ---
ASSUMED PT CARE FROM WILLIAM RN ON DAYSHIFT. PT IS DROWSY BUT ABLE TO AROUSE EASILY. DENIES ANY SOB OR CHEST PAIN. O2 SATS > 92% ON RA. HR A-FIB, INCREASING AND MAINTAINING IN THE 120'S. CARDIZEM GTT INCREASED, SEE EMAR. PT CONTINUES TO DENY ANY CHEST PAIN. DENIES ANY DIZZIESNESS/LIGHTHEADEDNESS WHEN UP TO BATHROOM. VOIDING WITHOUT DIFFICULTY. CALL LIGHT IN REACH.
[2022-10-20 05:05] LABS: BASOPHILS ABSOLUTE AUTO 0.05 K/mm3 (0.00-0.23); BASOPHILS PERCENT AUTO 1 % (0-2); EOSINOPHILS ABSOLUTE AUTO 0.17 K/mm3 (0.00-0.68); EOSINOPHILS PERCENT AUTO 2 % (0-6); Hematocrit 39.6 % (33.0-51.0); Hemoglobin 12.9 g/dL (11.5-16.0); IMMATURE GRAN ABSOLUTE AUTO 0.03 K/mm3 (0.00-0.10); IMMATURE GRAN PERCENT AUTO 0 % (0-1); LYMPHOCYTES ABSOLUTE AUTO 2.44 K/mm3 (0.84-5.20); LYMPHOCYTES PERCENT AUTO 28 % (21-46); MONOCYTES ABSOLUTE AUTO 0.83 K/mm3 (0.16-1.47); MONOCYTES PERCENT AUTO 9 % (4-13); Mean Corpuscular HGB 28.2 pg (26.0-34.0); Mean Corpuscular HGB Conc 32.6 g/dL (31.5-36.5); Mean Corpuscular Volume 87 fL (80-100); Mean Platelet Volume 9.9 fL (9.1-12.4); NEUTROPHILS ABSOLUTE AUTO 5.33 K/mm3 (1.96-9.15); NEUTROPHILS PERCENT AUTO 60 % (41-73); Platelet Count 252 K/mm3 (150-400); RDW Coefficient Variation 13.4 % (11.7-14.2); Red Blood Cell Count 4.57 M/mm3 (3.80-5.20); White Blood Cell Count 8.85 K/mm3 (4.00-11.30)
[2022-10-20 05:21] LABS: International Normalized Ratio 1.23; Prothrombin Time Results 12.8 Sec (9.7-11.5)
--- NOTE | 2022-10-20 05:30 | NUR ---
IV IN LEFT AC REMOVED DUE TO PT COMPLAINING OF PAIN. MINIMAL SWELLING NOTED AT SIDE WITH DIME SIZED REDNESS NOTED TO RIGHT SIDE OF INSERTION SITE. SPOKE WITH CASSIE MONTOYA, INSTRUCTED TO ELEVATE AND PROVIDE HOT/COLD THERAPY. PT REPORTS PAIN SUBSIDES. HR REMAINS IN A-FIB BETWEEN 90'S-130'S. CARDIAZEM GTT AT 15. CONTINUES TO DENY CHEST PAIN.
[2022-10-20 05:46] LABS: Albumin/Globulin Ratio 0.8 (0.8-1.8); Bilirubin, Total 1.4 mg/dL (0.1-1.0); Calcium, Blood 8.7 mg/dL (8.5-10.1); Creatinine, Blood 0.7 mg/dL (0.40-1.00); Globulin, Blood 3.7 g/dL (2.2-4.0); Potassium, Blood 3.5 mmol/L (3.5-5.5); Total Protein, Blood 6.7 g/dL (6.4-8.2)
--- NOTE | 2022-10-20 12:45 | NUR ---
1200: CARDIZEM TITRATED TO 5ML/HR FOR HR THAT IS AVERAGING 80-90. 1245: CARDIZEM STOPPED HR AVERAGING LOW 80s AT THIS TIME. VSS. PT RESTING WELL NO CP NO SOB REPORTED. DOES REPORT MIGRAINE HAS RETURNED. DR RIVERO CALLED FOR NEW ORDERS FOR MIGRAINE PAIN RELIEF
[2022-10-20 16:31] LABS: Magnesium, Blood 1.8 mg/dL (1.6-2.4); Phosphorus, Blood 3.9 mg/dL (2.5-4.9)
--- NOTE | 2022-10-20 17:16 | NUR ---
1439: PT WOKE UP FROM SLEEP 6 SECOND RUN OF V-TACH, PT REMAINED ALERT, STS THAT EVENT WOKE HER REPORTS WORSENING HEADACHE DURING EVENT. 1500: DR RIVERO CALLED AND NOTIFIED ABOUT EVENT. NEW ORDERS PLACED FOR MAGNESIUM AND PHOSPHOROUS LEVELS, ALONG WITH PO POTASSIUM. PT IS NOW SLEEPING, NADN. 1530: LABS DRAWN PT CONTINUES TO REST WELL IN BED, REPORTS BRINK HAS IMPROVED BUT STILL REMAINS THERE. REMAINS IN AFIB RHYTHM RANGING FROM 70-90 ON MONITOR WITH PREQUENT PVCs. 1615: PT MEDCIATED WITH ORAL POTASSIUM. PT DENIES CP OR SOB CONTINUES TO REPORT MILD HEADACHE. VSS. MAGNESIUM AND PHOSPHOROUS LEVEL DRAWS WERE NOTED TO BE WNL. END OF SHIFT NOTE: PT NOW RESTING WELL IN BED VISITING WITH SPOUSE AT BEDSIDE. BRINK REMAINS BUT IS MILD. PT UP TO BATHROOM. DENIES CP OR SOB. PLAYING CARDS ON PHONE WHEN THIS RN ENTERED ROOM. SUSAN.
--- NOTE | 2022-10-20 19:48 | NUR ---
ASSUMED PT CARE FORM WILLIAM WAYNE ON . PT RESTING IN BED WITH EYES CLOSED. WAKES SLUGGISHLY TO NOISE. ORIENTED X 3. REPORTS BRINK HAS RESOLVED AT THIS TIME. DENIES ANY SOB OR CHEST PAIN. O2 SATS > 92% ON RA. HR A-FIB IN 90'S AT THIS TIME. IV'S X 2 FLUSHE WIHTOUT PAIN OR SWELLING. DENIES NEEDS. ASSISTED TO REPOSITION FOR COMFORT. CALL LIGHT IN REACH.
[2022-10-20 22:19] LABS: Digoxin (Lanoxin) 0.62 ug/mL (0.80-2.00)
[2022-10-21 04:46] LABS: International Normalized Ratio 1.61; Prothrombin Time Results 16.5 Sec (9.7-11.5)
--- NOTE | 2022-10-21 05:04 | NUR ---
PT UP AMBULATING IN HALLWAY WITH STEADY GAIT, POSTURE ERECT. DENIES ANY CHEST PAIN, LIGHTHEADEDNESS/DIZZIENESS. PT GAVE SELF SPONGE BATH. HR IN LOW 100'S MAJORITY OF SHIFT WITH OCCAIONAL SPIKES UP INTO THE 130'S. NO EPISODES OF SVT'S NOTED. NO ACUTE CHANGES NOTED AT THIS TIME. CALL LIGHT IN REACH.
[2022-10-21 05:32] LABS: BASOPHILS ABSOLUTE AUTO 0.04 K/mm3 (0.00-0.23); BASOPHILS PERCENT AUTO 1 % (0-2); EOSINOPHILS ABSOLUTE AUTO 0.16 K/mm3 (0.00-0.68); EOSINOPHILS PERCENT AUTO 2 % (0-6); Hematocrit 41.6 % (33.0-51.0); Hemoglobin 13.5 g/dL (11.5-16.0); IMMATURE GRAN ABSOLUTE AUTO 0.02 K/mm3 (0.00-0.10); IMMATURE GRAN PERCENT AUTO 0 % (0-1); LYMPHOCYTES ABSOLUTE AUTO 2.32 K/mm3 (0.84-5.20); LYMPHOCYTES PERCENT AUTO 33 % (21-46); MONOCYTES ABSOLUTE AUTO 0.76 K/mm3 (0.16-1.47); MONOCYTES PERCENT AUTO 11 % (4-13); Mean Corpuscular HGB 28.2 pg (26.0-34.0); Mean Corpuscular HGB Conc 32.5 g/dL (31.5-36.5); Mean Corpuscular Volume 87 fL (80-100); Mean Platelet Volume 10.5 fL (9.1-12.4); NEUTROPHILS ABSOLUTE AUTO 3.71 K/mm3 (1.96-9.15); NEUTROPHILS PERCENT AUTO 53 % (41-73); Platelet Count 252 K/mm3 (150-400); RDW Coefficient Variation 13.2 % (11.7-14.2); RDW Standard Deviation 41.9 fL (35.1-46.3); Red Blood Cell Count 4.78 M/mm3 (3.80-5.20); White Blood Cell Count 7.01 K/mm3 (4.00-11.30)
[2022-10-21 05:56] LABS: Albumin/Globulin Ratio 0.8 (0.8-1.8); Bun/Creatinine Ratio 20.4 (12.0-20.0); Creatinine, Blood 0.64 mg/dL (0.40-1.00); Potassium, Blood 4.1 mmol/L (3.5-5.5)
--- NOTE | 2022-10-21 18:48 | NUR ---
PT DENIES CP OR SOB T/O THE DAY. VSS. NO BRINK TODAY. CARDIZEM RESUMED THIS AFTERNOON, WHICH IS CURRENTLY INFUSING AT 5ML/HR WITH AFIB NOTED ON MONITOR WITH RATE OF 103. PT REMAINS SBA TO BATHROOM, WITH EVEN STEADY GAIT. TAKES MEDS WELL CONTINUES TO REPORT THAT SHE CAN DETECT SOME SWALLOW ISSUE WITH LARGE PILLS THAT IS SUSPECTED TO BE RELATED TO ENLARGED THYROID. OTHERWISE THERE ARE NO FURTHER DETAILS TO DISCUSS THIS SHIFT
[2022-10-22 04:04] LABS: International Normalized Ratio 1.46
--- NOTE | 2022-10-22 06:22 | NUR ---
ASSUMED PT CARE AT 0230 FROM MARK WAYNE. PT RESTING IN BED WITH EYES CLOSED MOST OF NIGHT. APPEARS TO BE SLEEPING. WAKES TO NOISE. A&OX4. DENIES ANY SOB OR CHEST PAIN. HR IS A-FIB IN LOW 100'S ON CARDIZEM GTT AT 5. WHEN PT GETS UP TO BATHROOM HR INCREASES TO 150'S, PT REMAINS ASYMPTOMATIC. HR DECREASES AGAIN WHEN RETURNED TO BED. NOT ACUTE CHANGES NOTED AT THIS TIME. CALL LIGHT IN REACH.
--- NOTE | 2022-10-22 16:25 | NUR ---
SHIFT SUMMARY: PT RESTS QUIETLY MOST OF SHIFT, AROUSES EASILY TO STAFF IN ROOM, ORIENTED x4, ABLE TO MAKE NEEDS KNOWN. O2 SATS >93% ON RA, PT DENIES SOB. AFIB CONTINUES ON MONITOR, RATE MOSTLY 90s-110s W/OCCASIONAL SPIKES UP TO 150s BUT RATE DOES NOT SUSTAIN. PT DENIES CP. CARDIOLOGY CONSULT ORDERED BY PROVIDER, CALLED IN TO HC, DR SAMUELS TO/FROM BEDSIDE W/CHANGES MADE TO MEDICATION ORDERS. PT CONTINUES INDEPENDENT W/REPOSITIONING AND AMBULATION WITH EVEN, STEADY GAIT. WILL CONTINUE TO MONITOR AND TREAT ACCORDINGLY UNTIL CHANGE OF SHIFT.
--- NOTE | 2022-10-23 05:23 | NUR ---
SHIFT SUMMARY: A&OX4 DURING THIS SHIFT. ABLE TO FOLLOW DIRECTIONS AND MAKE NEEDS KNOWN. COMPLIANT WITH REQUESTS. HR IN LOW 100'S WHEN AT REST. INCREASES INTO 150'S WHEN SITTING UP AND WALKING. PT REMAINS ASYMPTOMATIC. REPORTS SOB THAT IS BASELINE FOR HER. O2 SATS > 92% ON RA. AMBULATING IN HALLWAY WITH STEADY GAIT, POSTURE ERECT. 6 SECOND BEAT OF V-TACH OBSERVED BY TELE, PT REMAINS ASYMPTOMATIC. WILL MONITOR. CALL LIGHT IN REACH.
[2022-10-23] MEDS ORDERED: POTA10T PO (10:43)
[2022-10-23] MEDS ORDERED: METO100ER PO (10:44)
[2022-10-23] MEDS ORDERED: ELIQUIS5 M2 PO (10:44)
[2022-10-23] MEDS ORDERED: METHIMAZOLE PO (10:45)
[2022-10-23] MEDS ORDERED: [UNRECOGNIZED DRUG - OTHER] PO (10:45)
[2022-10-23] MEDS ORDERED: BUME1 PO (11:23)
--- NOTE | 2022-10-23 11:45 | NUR ---
DISCHARGE: PT CLEARED FOR DISCHARGE HOME. IV ACCESS DC'D WNL. PT DRESSES SELF. DC INSTRUCTIONS AND PAPERWORK PROVIDED, PT V/U. PT ESCORTED F/UNIT VIA W/C W/OUT INCIDENT.
== END 2022-10-23 11:49 | disposition home or self-care (01) | DRG 309 ==
LOC: ER 19:00 → PCU 10-19 00:33 → ERHOLD 10-19 00:33 → PCU 10-19 01:25
PROVIDERS: Emergency Medicine; Pharmacist; Student in an Organized Health Care Education/Training Program; ADMIT Internal Medicine
DX: I48.0 Paroxysmal atrial fibrillation (principal); I50.32 Chronic diastolic (congestive) heart failure; R79.89 Other specified abnormal findings of blood chemistry; E05.90 Thyrotoxicosis, unspecified without thyrotoxic crisis or storm; F15.10 Other stimulant abuse, uncomplicated; E05.00 Thyrotoxicosis with diffuse goiter without thyrotoxic crisis or storm; G40.909 Epilepsy, unspecified, not intractable, without status epilepticus; I73.00 Raynaud's syndrome without gangrene; I70.0 Atherosclerosis of aorta; I95.9 Hypotension, unspecified; E11.9 Type 2 diabetes mellitus without complications; I11.0 Hypertensive heart disease with heart failure; I34.0 Nonrheumatic mitral (valve) insufficiency; F12.10 Cannabis abuse, uncomplicated; Z20.822 Contact with and (suspected) exposure to COVID-19; Z79.899 Other long term (current) drug therapy; Z87.891 Personal history of nicotine dependence; Z98.890 Other specified postprocedural states; Z79.891 Long term (current) use of opiate analgesic; Z79.84 Long term (current) use of oral hypoglycemic drugs; Z79.01 Long term (current) use of anticoagulants
CPT/HCPCS: 0241U; 36415; 71046; 80053; 80162; 82803; 82947; 83520; 83735; 83880; 84100; 84439; 84443; 84481; 84484; 85025; 85379; 85610; 93005; 93010; 93308; 93321; 96365; 96366; 96372; 96375; 96376; 99285-25; A9270; G0378; J1160; J1650; J3475; J7050

== ENCOUNTER 2022-12-19 11:38 | Observation (INO) | payer OTHER ==
[2022-12-19] VITALS (7 sets, daily range): BP systolic 98–128; BP diastolic 85–106
[~2022-12-19] VITALS: Ht 172.7 cm; Wt 111.3 kg
[~2022-12-19 11:38] MED LIST changes: +BUME1 PO; +ELIQUIS5 M2 PO; +METHIMAZOLE PO; +METO100ER PO; +POTA10T PO; +[UNRECOGNIZED DRUG - OTHER] PO
[2022-12-19 12:13] LABS: BASOPHILS ABSOLUTE AUTO 0.05 K/mm3 (0.00-0.23); BASOPHILS PERCENT AUTO 1 % (0-2); EOSINOPHILS ABSOLUTE AUTO 0.07 K/mm3 (0.00-0.68); EOSINOPHILS PERCENT AUTO 1 % (0-6); Hematocrit 46.4 % (33.0-51.0); Hemoglobin 14.8 g/dL (11.5-16.0); IMMATURE GRAN ABSOLUTE AUTO 0.03 K/mm3 (0.00-0.10); IMMATURE GRAN PERCENT AUTO 0 % (0-1); LYMPHOCYTES ABSOLUTE AUTO 1.84 K/mm3 (0.84-5.20); LYMPHOCYTES PERCENT AUTO 25 % (21-46); MONOCYTES PERCENT AUTO 11 % (4-13); Mean Corpuscular HGB Conc 31.9 g/dL (31.5-36.5); Mean Corpuscular Volume 91 fL (80-100); Mean Platelet Volume 10.4 fL (9.1-12.4); NEUTROPHILS ABSOLUTE AUTO 4.72 K/mm3 (1.96-9.15); NEUTROPHILS PERCENT AUTO 63 % (41-73); NRBC ABSOLUTE 0.03 K/mm3 (0.00-0.02); NRBC Auto 0.4 /100 WBC (0.0-0.2); Platelet Count 251 K/mm3 (150-400); RDW Coefficient Variation 20.2 % (11.7-14.2); RDW Standard Deviation 62.4 fL (35.1-46.3); Red Blood Cell Count 5.11 M/mm3 (3.80-5.20); White Blood Cell Count 7.51 K/mm3 (4.00-11.30)
[2022-12-19 12:38] LABS: Albumin, Blood 3.5 g/dL (3.4-5.0); Albumin/Globulin Ratio 0.9 (0.8-1.8); Bilirubin, Total 1.4 mg/dL (0.1-1.0); Bun/Creatinine Ratio 33.3 (12.0-20.0); Calcium, Blood 9.4 mg/dL (8.5-10.1); Creatinine, Blood 1.14 mg/dL (0.40-1.00); Globulin, Blood 3.8 g/dL (2.2-4.0); Potassium, Blood 5.3 mmol/L (3.5-5.5); Total Protein, Blood 7.3 g/dL (6.4-8.2)
[2022-12-19 14:01] LABS: BASOPHILS ABSOLUTE AUTO 0.05 K/mm3 (0.00-0.23); BASOPHILS PERCENT AUTO 1 % (0-2); EOSINOPHILS ABSOLUTE AUTO 0.08 K/mm3 (0.00-0.68); EOSINOPHILS PERCENT AUTO 1 % (0-6); Hematocrit 47.2 % (33.0-51.0); Hemoglobin 14.7 g/dL (11.5-16.0); IMMATURE GRAN ABSOLUTE AUTO 0.03 K/mm3 (0.00-0.10); IMMATURE GRAN PERCENT AUTO 0 % (0-1); LYMPHOCYTES ABSOLUTE AUTO 1.96 K/mm3 (0.84-5.20); LYMPHOCYTES PERCENT AUTO 25 % (21-46); MONOCYTES ABSOLUTE AUTO 0.86 K/mm3 (0.16-1.47); MONOCYTES PERCENT AUTO 11 % (4-13); Mean Corpuscular HGB 28.8 pg (26.0-34.0); Mean Corpuscular HGB Conc 31.1 g/dL (31.5-36.5); Mean Corpuscular Volume 92 fL (80-100); Mean Platelet Volume 10.4 fL (9.1-12.4); NEUTROPHILS ABSOLUTE AUTO 4.86 K/mm3 (1.96-9.15); NEUTROPHILS PERCENT AUTO 62 % (41-73); NRBC ABSOLUTE 0.03 K/mm3 (0.00-0.02); NRBC Auto 0.4 /100 WBC (0.0-0.2); Platelet Count 231 K/mm3 (150-400); RDW Coefficient Variation 20.1 % (11.7-14.2); RDW Standard Deviation 63.9 fL (35.1-46.3); Red Blood Cell Count 5.11 M/mm3 (3.80-5.20); White Blood Cell Count 7.84 K/mm3 (4.00-11.30)
[2022-12-19 14:26] LABS: International Normalized Ratio 1.26; Prothrombin Time Results 13.1 Sec (9.7-11.5)
[2022-12-20] VITALS: BP 118/87
[2022-12-20 03:11] VITALS: BP 118/95
[2022-12-20 04:14] LABS: BASOPHILS ABSOLUTE AUTO 0.06 K/mm3 (0.00-0.23); BASOPHILS PERCENT AUTO 1 % (0-2); EOSINOPHILS PERCENT AUTO 1 % (0-6); Hemoglobin 13.7 g/dL (11.5-16.0); IMMATURE GRAN ABSOLUTE AUTO 0.04 K/mm3 (0.00-0.10); IMMATURE GRAN PERCENT AUTO 1 % (0-1); LYMPHOCYTES ABSOLUTE AUTO 1.53 K/mm3 (0.84-5.20); LYMPHOCYTES PERCENT AUTO 21 % (21-46); MONOCYTES PERCENT AUTO 13 % (4-13); Mean Corpuscular HGB 28.3 pg (26.0-34.0); Mean Corpuscular HGB Conc 31.1 g/dL (31.5-36.5); Mean Corpuscular Volume 91 fL (80-100); Mean Platelet Volume 10.4 fL (9.1-12.4); NEUTROPHILS ABSOLUTE AUTO 4.75 K/mm3 (1.96-9.15); NEUTROPHILS PERCENT AUTO 64 % (41-73); NRBC ABSOLUTE 0.03 K/mm3 (0.00-0.02); NRBC Auto 0.4 /100 WBC (0.0-0.2); Platelet Count 227 K/mm3 (150-400); RDW Coefficient Variation 19.9 % (11.7-14.2); RDW Standard Deviation 64.6 fL (35.1-46.3); Red Blood Cell Count 4.84 M/mm3 (3.80-5.20); White Blood Cell Count 7.48 K/mm3 (4.00-11.30)
[2022-12-20 04:34] LABS: Albumin, Blood 3.3 g/dL (3.4-5.0); Albumin/Globulin Ratio 0.9 (0.8-1.8); Bilirubin, Total 1.3 mg/dL (0.1-1.0); Bun/Creatinine Ratio 31.7 (12.0-20.0); Calcium, Blood 8.5 mg/dL (8.5-10.1); Creatinine, Blood 1.04 mg/dL (0.40-1.00); Globulin, Blood 3.6 g/dL (2.2-4.0); Potassium, Blood 3.5 mmol/L (3.5-5.5); Total Protein, Blood 6.9 g/dL (6.4-8.2)
--- NOTE | 2022-12-20 04:43 | NUR ---
SHIFT SUMMARY PT A&Ox4, CALLS AND COMMUNICATES NEEDS APPROPRIATLEY, IMPULSIVE AT TIMES. BP STABLE, AFIB 80-110's, DENIES CP/PRESSURE. SpO2> 92% RA, DENIES SOB. CARDIZEM gtt ON STANDBY, SEE EMAR FOR TITRATION. PT SBA TO BSC, CONTINENT OF URINE AND BOWEL. PT WITH C/O SEVERE LEG CRAMPS, PHYSICIAN NOTIFIED, ORDERS PLACED. NO OTHER EVENTS, WILL REPORT TO ONCOMING RN.
[2022-12-20 07:51] VITALS: BP 122/93
[2022-12-20 10:43] LABS: U Amphetamine Screen DETECTED; U Barbituate Screen Not Detected; U Benzodiazapine Screen Not Detected; U Buprenorphine Screen Not Detected; U Cannabinoids Screen Not Detected; U Cocaine Screen Not Detected; U Methadone Screen Not Detected; U Methamphetamine Screen DETECTED; U Opiates Screen DETECTED; U Oxycodone Screen Not Detected; U Phencyclidine Screen Not Detected; U Propoxyphene Screen Not Detected
[2022-12-20 11:24] VITALS: BP 121/102
[2022-12-20] MEDS ORDERED: Cyclobenzaprine5 MG PO (16:01)
[2022-12-20] MEDS ORDERED: ONDA4 PO (16:02)
[2022-12-22 06:11] LABS: HBSAG SCREEN Negative (Negative); HCV AB Non Reactive (Non Reactive); HEP A AB, IGM Negative (Negative); HEP B CORE AB, TOT Negative (Negative)
== END 2022-12-20 16:46 | disposition home or self-care (01) ==
LOC: ER 11:38 → PCU 11:39 → ER 14:02 → PCU 14:02
PROVIDERS: Emergency Medicine; ADMIT Family Medicine
DX: I48.91 Unspecified atrial fibrillation (principal); I73.9 Peripheral vascular disease, unspecified; R74.01 Elevation of levels of liver transaminase levels; F15.90 Other stimulant use, unspecified, uncomplicated; E05.90 Thyrotoxicosis, unspecified without thyrotoxic crisis or storm; Z87.891 Personal history of nicotine dependence; I50.9 Heart failure, unspecified; Z79.01 Long term (current) use of anticoagulants
CPT/HCPCS: 36415; 71046; 76705; 80053; 84443; 84484; 85025; 85610; 85730; 86704; 86708; 86803; 87340; 93005; 93010; 93925; 93970; 96365; 96366; 96376; 99285-25; A9270

== ENCOUNTER 2022-12-30 16:12 | Inpatient (IN) | payer OTHER ==
[~2022-12-30] VITALS: Ht 172.7 cm; Wt 112.4 kg
[2022-12-30] VITALS (8 sets, daily range): BP systolic 100–116; BP diastolic 81–105
[~2022-12-30 16:12] MED LIST changes: -ACET325 PO; -ALLO100 PO; -CEFP200 PO; -COLCHICINE0.6 MG PO; -DILT120 PO; -DILT180 PO; -ELIQUIS5 M4 PO; -HYDHCL25 PO; -Isosorbide Mono30 MG PO; -Lisinopril2.5 MG PO; -METHI10 PO; -PHOS-NAK PO; -POTCHL20ER PO; -PREG25 PO; -Phentermine HCl15 MG PO; -Prednisone10 MG PO; -VISBIOME 112.51 EACH PO
[2022-12-30 17:05] LABS: BASOPHILS ABSOLUTE AUTO 0.05 K/mm3 (0.00-0.23); BASOPHILS PERCENT AUTO 1 % (0-2); EOSINOPHILS ABSOLUTE AUTO 0.05 K/mm3 (0.00-0.68); EOSINOPHILS PERCENT AUTO 1 % (0-6); Hematocrit 51.4 % (33.0-51.0); Hemoglobin 16.2 g/dL (11.5-16.0); IMMATURE GRAN ABSOLUTE AUTO 0.02 K/mm3 (0.00-0.10); IMMATURE GRAN PERCENT AUTO 0 % (0-1); LYMPHOCYTES ABSOLUTE AUTO 2.49 K/mm3 (0.84-5.20); LYMPHOCYTES PERCENT AUTO 29 % (21-46); MONOCYTES ABSOLUTE AUTO 0.86 K/mm3 (0.16-1.47); MONOCYTES PERCENT AUTO 10 % (4-13); Mean Corpuscular HGB 28.4 pg (26.0-34.0); Mean Corpuscular HGB Conc 31.5 g/dL (31.5-36.5); Mean Corpuscular Volume 90 fL (80-100); Mean Platelet Volume 10.3 fL (9.1-12.4); NEUTROPHILS ABSOLUTE AUTO 5.03 K/mm3 (1.96-9.15); NEUTROPHILS PERCENT AUTO 59 % (41-73); NRBC ABSOLUTE 0.02 K/mm3 (0.00-0.02); NRBC Auto 0.2 /100 WBC (0.0-0.2); Platelet Count 335 K/mm3 (150-400); RDW Coefficient Variation 20.5 % (11.7-14.2); RDW Standard Deviation 63.3 fL (35.1-46.3); Red Blood Cell Count 5.71 M/mm3 (3.80-5.20)
[2022-12-30 17:23] LABS: Albumin, Blood 3.5 g/dL (3.4-5.0); Albumin/Globulin Ratio 0.9 (0.8-1.8); Bilirubin, Total 1.4 mg/dL (0.1-1.0); Bun/Creatinine Ratio 30.5 (12.0-20.0); Creatinine, Blood 2.62 mg/dL (0.40-1.00); Globulin, Blood 3.8 g/dL (2.2-4.0); Total Protein, Blood 7.3 g/dL (6.4-8.2)
[2022-12-30 17:51] LABS: Free Thyroxine 1.01 ng/dL (0.70-1.60)
[2022-12-30 17:52] LABS: Thyroid Stimulating Hormone 14.8 uIU/mL (0.360-4.800); Triiodothyronine, Free 2.19 pg/mL (2.18-3.98)
[2022-12-30 18:24] LABS: Source, Urine Clean Catch
[2022-12-30 18:32] LABS: Appearance, Urine Hazy (Clear); Bilirubin, Urine Neg (Neg); Blood, Urine 2+ (Neg); Color, Urine Yellow (P-Yellow); Glucose Qualitative, Urine Neg (Neg); Ketones, Urine Neg (Neg); Leukocyte Esterase, Urine 1+ (Neg); Nitrite, Urine Neg (Neg); Protein, Urine 2+ (Neg); Urobilinogen, Urine NORM (Normal)
[2022-12-30 18:44] LABS: Bacteria Many /hpf; Red Blood Cells, Urine 0-2 /hpf (0-2); Squamous Epithelial Cells Rare /hpf (Few)
[2022-12-30] MEDS ORDERED: HYDHCL25 PO (22:03)
[2022-12-30] MEDS ORDERED: Phentermine HCl15 MG PO (22:04)
[2022-12-30 23:04] LABS: Bicarbonate Venous 22.4 mmol/L (24.0-30.0); PCO2 Venous 34.7 mmHg (38-42); pH Blood Venous 7.41 (7.34-7.37)
[2022-12-30 23:55] LABS: CPK Creatine Kinase 82 U/L (26-193)
[2022-12-31] VITALS (17 sets, daily range): BP systolic 100–138; BP diastolic 60–107
--- NOTE | 2022-12-31 00:41 | NUR ---
RECEIVED REPORT FROM RN IN ED. PT ADMITTED TO PCU 7. ABLE TO STAND AND AMBULATE FROM GURNEY TO BED, SOB NOTED WITH AMBULATION. PT REPORTS BASELINE SOB THAT HAS WORSTENED OF LATE. TACHEPNIA NOTED WITH EXERTIONS THAT RESOLVES WHEN RESTING IN BED. DENIES FEELING SOB WHEN REST. O2 SATS > 92% ON RA. RESPIRATIONS EVEN AND UNLABORED WHEN AT REST. DENIES CHEST PAIN BUT REPORTS "HEAVIENESS IN CHEST". DR. RADHA ALFARO OF PT, INFORMED OF PT'S COMPLAINTS. DENIES ANY NAUSEA AT THIS TIME. HR A-FIB 130'S-150'S. HOME PO MEDICATIONS GIVEN. WILL MONITOR FOR RESULTS. FLUIDS INFUSING AT 75 ML/HR PER DOCTOR'S INSTRUCTIONS. CLARIFICATION RECEIVED THAT FLUIDS SHOULD BE GIVEN EVEN WITH SWELLING NOTED IN PT'S LEGS. ORIENTED TO ROOM. CALL LIGHT IN REACH.
--- NOTE | 2022-12-31 05:29 | NUR ---
PT ANXIOUS, PULLING AT CPAP. MEDICATED FOR ANXIETY, SEE EMAR, AFTER SPEAKING WITH DR. BAKER. PT ANXIETY IMPROVING, ABLE TO SLEEP INTERMITTENTLY. COMPLAINING OF PAIN IN LEFT ANKLE, ICE PACK APPLIED WITHOUT RESULT. RECEIVED ORDER FOR VENIOUS DUPLEX AND TYLENOL FOR PAIN CONTROL FROM DR. BAKER. PT RESTING IN BED. CALL LIGHT IN REACH. BED ALARM ON.
[2022-12-31 07:03] LABS: BASOPHILS ABSOLUTE AUTO 0.07 K/mm3 (0.00-0.23); BASOPHILS PERCENT AUTO 1 % (0-2); EOSINOPHILS ABSOLUTE AUTO 0.08 K/mm3 (0.00-0.68); EOSINOPHILS PERCENT AUTO 1 % (0-6); Hematocrit 46.3 % (33.0-51.0); Hemoglobin 14.7 g/dL (11.5-16.0); IMMATURE GRAN ABSOLUTE AUTO 0.03 K/mm3 (0.00-0.10); IMMATURE GRAN PERCENT AUTO 0 % (0-1); LYMPHOCYTES PERCENT AUTO 30 % (21-46); MONOCYTES ABSOLUTE AUTO 1.01 K/mm3 (0.16-1.47); MONOCYTES PERCENT AUTO 11 % (4-13); Mean Corpuscular HGB 28.8 pg (26.0-34.0); Mean Corpuscular HGB Conc 31.7 g/dL (31.5-36.5); Mean Corpuscular Volume 91 fL (80-100); Mean Platelet Volume 10.3 fL (9.1-12.4); NEUTROPHILS ABSOLUTE AUTO 5.03 K/mm3 (1.96-9.15); NEUTROPHILS PERCENT AUTO 56 % (41-73); NRBC ABSOLUTE 0.02 K/mm3 (0.00-0.02); NRBC Auto 0.2 /100 WBC (0.0-0.2); Platelet Count 283 K/mm3 (150-400); RDW Coefficient Variation 20.2 % (11.7-14.2); RDW Standard Deviation 64.2 fL (35.1-46.3); White Blood Cell Count 8.92 K/mm3 (4.00-11.30)
[2022-12-31 07:21] LABS: Albumin, Blood 3.1 g/dL (3.4-5.0); Bilirubin, Total 1.3 mg/dL (0.1-1.0); Calcium, Blood 8.2 mg/dL (8.5-10.1); Creatinine, Blood 2.14 mg/dL (0.40-1.00); Potassium, Blood 4.2 mmol/L (3.5-5.5); Total Protein, Blood 6.1 g/dL (6.4-8.2)
--- NOTE | 2022-12-31 07:25 | NUR ---
Received in room report from Noc RN. Patient is resting on CPAP and sats 100%. She arouses slightly with nocious stimuli and wimpers and does not open eye. Dis blood draw from IV as lab was having a hard time. She has two 20ga IV's in left arm(LAC, LFA), LFA infusing NS at 75 ml/hr. She has scratchs to right arm and bilateral hands are reddish/purple. She has 2+edema top bilateral LE's. She is in A-fib low 100's. Re-assess neuros when more awake.
[2022-12-31 10:28] LABS: C-REACTIVE PROTEIN, EXT RANGE 1.98 mg/dL (0.000-0.300)
[2022-12-31 11:18] LABS: Uric Acid, Blood 15.6 mg/dL (2.6-6.0)
--- NOTE | 2022-12-31 11:30 | NUR ---
Patient has been on RA since this am and sats>90%. She remains drowsy and mostly sleeping. Dr Flores by and assessed and new orders place. US boyce been and gone. Patient remains in A-Fib and rates low 100's. She is sitting up and starting lunch, spouse at bedside. Purewick in place and sent UA.
[2022-12-31 13:39] LABS: U Amphetamine Screen DETECTED; U Barbituate Screen Not Detected; U Benzodiazapine Screen Not Detected; U Cocaine Screen Not Detected; U Methadone Screen Not Detected; U Methamphetamine Screen DETECTED; U Opiates Screen Not Detected; U Phencyclidine Screen Not Detected
[2022-12-31 13:40] LABS: U Buprenorphine Screen Not Detected; U Cannabinoids Screen Not Detected; U Oxycodone Screen Not Detected; U Propoxyphene Screen Not Detected
--- NOTE | 2022-12-31 15:29 | NUR ---
Patient has been sleeping most of shift and awakens for meals and care. at bedside. He rate was climbing in the [address] Flores and he place med orders and administered per SEP. She has been made med with tele status and awaiting a bed assignment. Also called on high uric acid level and new med order. Patient not very interactive until fully awake and able to participate.Purewick in place and has moderate amounts of yellow urine output.
--- NOTE | 2022-12-31 18:16 | NUR ---
TRANSFER NOTE PT TRANSFERRED FROM ICU AT 1810, BROUGHT UP VIA WHEELCHAIR. PT MADE AWARE OF CALL LIGHT, BED IN THE LOWEST POSITION. FAMILY AT THE BS.
[2023-01-01 04:16] VITALS: BP 128/89
--- NOTE | 2023-01-01 04:20 | NUR ---
ASSUMED CARE THIS RN ASSUMED CARE OF PATIENT FROM FARHANA PARR RN, AT 0250. NO ACUTE CHANGES THIS. VSS. BED LOW AND LOCKED. CALL LIGHT WITHIN REACH. THIS RN WILL CONTINUE TO MONITOR.
[2023-01-01 04:29] LABS: BASOPHILS ABSOLUTE AUTO 0.01 K/mm3 (0.00-0.23); BASOPHILS PERCENT AUTO 0 % (0-2); EOSINOPHILS PERCENT AUTO 0 % (0-6); Hematocrit 48.1 % (33.0-51.0); Hemoglobin 15.5 g/dL (11.5-16.0); IMMATURE GRAN ABSOLUTE AUTO 0.02 K/mm3 (0.00-0.10); IMMATURE GRAN PERCENT AUTO 0 % (0-1); LYMPHOCYTES ABSOLUTE AUTO 0.73 K/mm3 (0.84-5.20); LYMPHOCYTES PERCENT AUTO 13 % (21-46); MONOCYTES ABSOLUTE AUTO 0.14 K/mm3 (0.16-1.47); MONOCYTES PERCENT AUTO 3 % (4-13); Mean Corpuscular HGB 28.6 pg (26.0-34.0); Mean Corpuscular HGB Conc 32.2 g/dL (31.5-36.5); Mean Corpuscular Volume 89 fL (80-100); Mean Platelet Volume 9.7 fL (9.1-12.4); NEUTROPHILS ABSOLUTE AUTO 4.63 K/mm3 (1.96-9.15); NEUTROPHILS PERCENT AUTO 84 % (41-73); Platelet Count 275 K/mm3 (150-400); RDW Coefficient Variation 19.8 % (11.7-14.2); RDW Standard Deviation 60.8 fL (35.1-46.3); Red Blood Cell Count 5.42 M/mm3 (3.80-5.20); White Blood Cell Count 5.53 K/mm3 (4.00-11.30)
[2023-01-01 04:46] LABS: Albumin, Blood 3.1 g/dL (3.4-5.0); Albumin/Globulin Ratio 0.9 (0.8-1.8); Bilirubin, Total 1.2 mg/dL (0.1-1.0); Bun/Creatinine Ratio 40.5 (12.0-20.0); Calcium, Blood 8.9 mg/dL (8.5-10.1); Creatinine, Blood 1.68 mg/dL (0.40-1.00); Globulin, Blood 3.5 g/dL (2.2-4.0); Magnesium, Blood 1.8 mg/dL (1.6-2.4); Potassium, Blood 3.9 mmol/L (3.5-5.5); Total Protein, Blood 6.6 g/dL (6.4-8.2)
[2023-01-01 04:59] LABS: Eosinophils-Raw #,Urine 0
--- NOTE | 2023-01-01 07:30 | NUR ---
ASSUMED CARE: PT RESTING QUIELTY IN BED AT THIS TIME. NC AT 3L CURRENTLY. AFIB IN 120S ON TELE. NO FURTHER NEEDS OR CONCERNS AT THIS TIME.
[2023-01-01 08:06] VITALS: BP 113/89
--- NOTE | 2023-01-01 09:23 | NUR ---
SPOKE WITH DR BERNARD REGARDING PT'S POSITIVE BLOOD CX. DR ALSO AWARE OF PT'S BNP. DR ORDERED SLOW RATE FOR IVF FOR KIDNEY FUNCTION AND DECLINED DIURETICS AT THIS TIME. NEW ORDER FOR IV ABX WELL.
--- NOTE | 2023-01-01 13:06 | NUR ---
PT GOT UP TO BATHROOM AND HR INCREASED TO 160S. PT WAS SITTING ON TOILET AND HR DECREASED TO 130S BUT WAS SUSTAINING. TOY DESIGNER WAS DISCUSSING WITH NURSE AND PT MAINTAINED 130S FOR SEVERAL MINUTES. RN WENT TO BEDSIDE AND ADVISED PT TO TAKE SHOWER AT A LATER TIME BECAUSE IT IS CURRENTLY NOT SAFE TO TAKE HER OFF TELE FOR SHOWER. GEAR DESIGN ENGINEER AWARE.
--- NOTE | 2023-01-01 13:16 | NUR ---
TELE CALLED AND STATED PT'S HR IS STILL MAINITAINING IN 130S. CALL TO DR BERNARD TO MAKE HIM AWARE WELL LET HIM KNOW THAT THERE ARE HOME CARDIAC MEDS WE ARE NOT GIVING. STATED HE WOULD REVIEW LIST AND REORDER
[2023-01-01 13:33] VITALS: BP 134/96
--- NOTE | 2023-01-01 14:00 | NUR ---
INFORMATION SECURITY DIRECTOR AT BEDSIDE
[2023-01-01 15:32] VITALS: BP 127/99
--- NOTE | 2023-01-01 18:28 | NUR ---
SHIFT SUMMARY: PT HAD ONE EPISODE OF RAPID HR IN 160S. CALL TO DR BERNARD WHO REORDERED PT'S CARDIAC MEDS THEY WERE ORDERED AT HOME WITH NO FURTHER EPISODES. HR HAS BEEN IN 1TEENS, AFIB, T/O THE SHIFT. IVF RUNNING AT 50/HR PER ORDERS. FAMILY AT BEDSIDE T/O SHIFT. NO FURTHER NEEDS OR CONCERNS AT THIS TIME.
[2023-01-01 19:52] VITALS: BP 127/90
[2023-01-02 02:31] VITALS: BP 143/107
[2023-01-02 06:01] LABS: BASOPHILS ABSOLUTE AUTO 0.03 K/mm3 (0.00-0.23); BASOPHILS PERCENT AUTO 0 % (0-2); EOSINOPHILS PERCENT AUTO 0 % (0-6); Hematocrit 48.8 % (33.0-51.0); Hemoglobin 15.7 g/dL (11.5-16.0); IMMATURE GRAN ABSOLUTE AUTO 0.09 K/mm3 (0.00-0.10); IMMATURE GRAN PERCENT AUTO 1 % (0-1); LYMPHOCYTES PERCENT AUTO 9 % (21-46); MONOCYTES ABSOLUTE AUTO 1.15 K/mm3 (0.16-1.47); MONOCYTES PERCENT AUTO 8 % (4-13); Mean Corpuscular HGB Conc 32.2 g/dL (31.5-36.5); Mean Corpuscular Volume 90 fL (80-100); Mean Platelet Volume 9.8 fL (9.1-12.4); NEUTROPHILS ABSOLUTE AUTO 12.72 K/mm3 (1.96-9.15); NEUTROPHILS PERCENT AUTO 83 % (41-73); Platelet Count 284 K/mm3 (150-400); RDW Coefficient Variation 19.9 % (11.7-14.2); RDW Standard Deviation 62.6 fL (35.1-46.3); Red Blood Cell Count 5.41 M/mm3 (3.80-5.20); White Blood Cell Count 15.39 K/mm3 (4.00-11.30)
--- NOTE | 2023-01-02 06:10 | NUR ---
SHIFT SUMMARY PT IS A&O4, IND IN THE ROOM, RA, PT COMPLAINT OF 10/10 LOWER LEG PAIN ORDER RECIEVED FOR PRN SUBLIMAZE, NO ACUTE OVERNIGHT EVENTS CONTINUE POC
[2023-01-02 06:22] LABS: Albumin, Blood 3.2 g/dL (3.4-5.0); Albumin/Globulin Ratio 0.9 (0.8-1.8); Bun/Creatinine Ratio 46.2 (12.0-20.0); Calcium, Blood 8.8 mg/dL (8.5-10.1); Creatinine, Blood 1.04 mg/dL (0.40-1.00); Globulin, Blood 3.6 g/dL (2.2-4.0); Potassium, Blood 4.4 mmol/L (3.5-5.5); Total Protein, Blood 6.8 g/dL (6.4-8.2); Uric Acid, Blood 10.5 mg/dL (2.6-6.0)
[2023-01-02 07:17] VITALS: BP 140/100
[2023-01-02 15:55] VITALS: BP 114/80
--- NOTE | 2023-01-02 16:08 | NUR ---
SHIFT SUMMARY- PT IS A/O, PLESANT AND COOPERTATIVE. SHE HAS BEEN RECEIVING IV FLUIDS THIS SHIFT. ARIANNA BRIONES WAS APPLIED. HER WAS AT BEDSIDE THIS SHIFT. SHE IS AMBULATING TO THE RESTROOM. SHE RECIEVED DIURETICS THIS SHIFT AND IS VOIDING FREQUENTLY. HER BED IS IN THE LOW POSTION AND CALL LIGHT IS WITHIN REACH.
[2023-01-02 19:59] VITALS: BP 121/93
[2023-01-03 02:57] VITALS: BP 133/97
--- NOTE | 2023-01-03 04:42 | NUR ---
SHIFT SUMMARY A/O AFIB TACHY WHEN UP AND AMBULATORY, PT IS SO FAR INDEPENDANT. PT HAS BEEN VERY QUIET NO C/O PAIN SHOWS NO DISTRESS, ONLY C/O IV BEEPING SO IV HAS BEEN CONT REPOSITIONED, AFTER CHECKING FOR INFILTARATION IV SHOWED TO BE VERY FUNCTIONAL. CONT MONITOR
[2023-01-03 08:13] LABS: HBSAG SCREEN Negative (Negative); HCV AB Non Reactive (Non Reactive); HEP B CORE AB, TOT Negative (Negative)
[2023-01-03 08:28] LABS: BASOPHILS ABSOLUTE AUTO 0.02 K/mm3 (0.00-0.23); BASOPHILS PERCENT AUTO 0 % (0-2); EOSINOPHILS ABSOLUTE AUTO 0.01 K/mm3 (0.00-0.68); EOSINOPHILS PERCENT AUTO 0 % (0-6); Hematocrit 47.2 % (33.0-51.0); Hemoglobin 14.7 g/dL (11.5-16.0); IMMATURE GRAN ABSOLUTE AUTO 0.05 K/mm3 (0.00-0.10); IMMATURE GRAN PERCENT AUTO 0 % (0-1); LYMPHOCYTES ABSOLUTE AUTO 1.74 K/mm3 (0.84-5.20); LYMPHOCYTES PERCENT AUTO 13 % (21-46); MONOCYTES ABSOLUTE AUTO 1.18 K/mm3 (0.16-1.47); MONOCYTES PERCENT AUTO 9 % (4-13); Mean Corpuscular HGB 28.4 pg (26.0-34.0); Mean Corpuscular HGB Conc 31.1 g/dL (31.5-36.5); Mean Corpuscular Volume 91 fL (80-100); Mean Platelet Volume 9.4 fL (9.1-12.4); NEUTROPHILS PERCENT AUTO 77 % (41-73); Platelet Count 249 K/mm3 (150-400); RDW Coefficient Variation 19.9 % (11.7-14.2); Red Blood Cell Count 5.18 M/mm3 (3.80-5.20)
[2023-01-03 08:57] LABS: Albumin, Blood 3.5 g/dL (3.4-5.0); Albumin/Globulin Ratio 1.1 (0.8-1.8); Bilirubin, Total 1.1 mg/dL (0.1-1.0); Bun/Creatinine Ratio 39.2 (12.0-20.0); Calcium, Blood 8.7 mg/dL (8.5-10.1); Creatinine, Blood 0.97 mg/dL (0.40-1.00); Globulin, Blood 3.3 g/dL (2.2-4.0); Potassium, Blood 4.2 mmol/L (3.5-5.5); Total Protein, Blood 6.8 g/dL (6.4-8.2)
--- NOTE | 2023-01-03 10:19 | NUR ---
PATIENT STATES SHE IS MISSING CLOTHES, ON 01-01-23 I ASSISTED PATIENT WITH A SPONGE BATH IN THE BATHROOM, AT THAT TIME SHE ONLY HAD A SHIRT ON AND UNDERWEAR, I PLACED THEM IN THE TOP DRAWER OF THE NIGHT STAND, THEY ARE NO LONGER THERE.
[2023-01-03] MEDS ORDERED: CEFP200 PO (11:28)
[2023-01-03] MEDS ORDERED: ALLO100 PO (11:28)
[2023-01-03] MEDS ORDERED: ACET325 PO (11:28)
[2023-01-03] MEDS ORDERED: COLCHICINE0.6 MG PO (11:29)
[2023-01-03] MEDS ORDERED: Lisinopril2.5 MG PO (11:45)
[2023-01-03] MEDS ORDERED: VISBIOME 112.51 EACH PO (11:45)
[2023-01-03] MEDS ORDERED: Isosorbide Mono30 MG PO (11:45)
[2023-01-03] MEDS ORDERED: Prednisone10 MG PO (11:46)
[2023-01-03] MEDS ORDERED: PREG25 PO (11:47)
--- NOTE | 2023-01-03 13:19 | NUR ---
DISCHARGE SUMMARY PATIENT IS ALERT AND ORIENTED. PATIENT HAS HAD NO ACUTE EVENTS THIS SHIFT. VITAL SIGNS REVIEWED. PATIENT HAS NOT COMPLAINED OF PAIN, NAUSEA, SOB OR VOMITTING THIS SHIFT. PATIENT IS BEING DISCHARGED HOME WITH TRANSPORTING.
== END 2023-01-03 13:09 | disposition home health service (06) | DRG 683 ==
LOC: ER 16:12 → PCU 21:28 → MEDS 21:28 → PCU 21:47 → MEDS 12-31 18:02
PROVIDERS: Emergency Medicine; Hospitalist; Student in an Organized Health Care Education/Training Program; ADMIT Internal Medicine
DX: N17.9 Acute kidney failure, unspecified (principal); I50.32 Chronic diastolic (congestive) heart failure; N39.0 Urinary tract infection, site not specified; R78.81 Bacteremia; I48.91 Unspecified atrial fibrillation; G40.909 Epilepsy, unspecified, not intractable, without status epilepticus; B96.20 Unspecified Escherichia coli [E. coli] as the cause of diseases classified elsewhere; M10.072 Idiopathic gout, left ankle and foot; M10.071 Idiopathic gout, right ankle and foot; I73.00 Raynaud's syndrome without gangrene; N18.2 Chronic kidney disease, stage 2 (mild); I27.20 Pulmonary hypertension, unspecified; I35.0 Nonrheumatic aortic (valve) stenosis; B95.8 Unspecified staphylococcus as the cause of diseases classified elsewhere; Z98.890 Other specified postprocedural states; Z79.84 Long term (current) use of oral hypoglycemic drugs; Z87.891 Personal history of nicotine dependence; Z79.01 Long term (current) use of anticoagulants; Z79.899 Other long term (current) drug therapy
CPT/HCPCS: 36415; 71046; 76770; 80053; 80202; 81001; 82436; 82550; 82803; 82947; 83735; 83880; 84100; 84300; 84439; 84443; 84481; 84484; 84550; 85025; 85651; 86140; 86704; 86708; 86803; 87040; 87077; 87086; 87186; 87205; 87340; 93005; 93010; 93306; 93970; 94660; 94762; 96361; 96374; 99285-25; A9270; J0696; J1160; J2060; J3010; J3370; J3475; J7030; J7050; J7512; P9047

== ENCOUNTER → 2022-12-30 | Outpatient (CLI) | payer OTHER ==
[~2022-12-30] MED LIST changes: +ACET325 PO; +ALLO100 PO; +CEFP200 PO; +COLCHICINE0.6 MG PO; +DILT120 PO; +DILT180 PO; +ELIQUIS5 M4 PO; +HYDHCL25 PO; +Isosorbide Mono30 MG PO; +Lisinopril2.5 MG PO; +METHI10 PO; +ONDA4 PO; +PHOS-NAK PO; +POTCHL20ER PO; +PREG25 PO; +Phentermine HCl15 MG PO; +Prednisone10 MG PO; +VISBIOME 112.51 EACH PO
[2022-12-30 14:47] LABS: BASOPHILS ABSOLUTE AUTO 0.07 K/mm3 (0.00-0.23); BASOPHILS PERCENT AUTO 1 % (0-2); EOSINOPHILS ABSOLUTE AUTO 0.05 K/mm3 (0.00-0.68); EOSINOPHILS PERCENT AUTO 1 % (0-6); Hematocrit 50.5 % (33.0-51.0); Hemoglobin 16.4 g/dL (11.5-16.0); IMMATURE GRAN ABSOLUTE AUTO 0.03 K/mm3 (0.00-0.10); IMMATURE GRAN PERCENT AUTO 0 % (0-1); LYMPHOCYTES PERCENT AUTO 25 % (21-46); MONOCYTES ABSOLUTE AUTO 0.75 K/mm3 (0.16-1.47); MONOCYTES PERCENT AUTO 10 % (4-13); Mean Corpuscular HGB 29.2 pg (26.0-34.0); Mean Corpuscular HGB Conc 32.5 g/dL (31.5-36.5); Mean Corpuscular Volume 90 fL (80-100); Mean Platelet Volume 10.2 fL (9.1-12.4); NEUTROPHILS ABSOLUTE AUTO 4.93 K/mm3 (1.96-9.15); NEUTROPHILS PERCENT AUTO 64 % (41-73); NRBC ABSOLUTE 0.02 K/mm3 (0.00-0.02); NRBC Auto 0.3 /100 WBC (0.0-0.2); Platelet Count 312 K/mm3 (150-400); RDW Coefficient Variation 20.8 % (11.7-14.2); RDW Standard Deviation 63.6 fL (35.1-46.3); Red Blood Cell Count 5.62 M/mm3 (3.80-5.20); White Blood Cell Count 7.73 K/mm3 (4.00-11.30)
[2022-12-30 15:04] LABS: Albumin, Blood 3.5 g/dL (3.4-5.0); Bilirubin, Total 1.3 mg/dL (0.1-1.0); Bun/Creatinine Ratio 27.4 (12.0-20.0); Calcium, Blood 8.9 mg/dL (8.5-10.1); Creatinine, Blood 2.92 mg/dL (0.40-1.00); Globulin, Blood 3.5 g/dL (2.2-4.0); Magnesium, Blood 1.5 mg/dL (1.6-2.4)
== END | disposition home or self-care (01) ==
LOC: LAB SHORT 14:44 → LAB 14:44
PROVIDERS: Physician Assistant
DX: M79.89 Other specified soft tissue disorders (principal)
CPT/HCPCS: 80053; 83735; 83880; 85025

== ENCOUNTER 2023-10-22 17:49 | Inpatient (IN) | payer OTHER ==
[~2023-10-22] VITALS: Ht 170.2 cm; Wt 92.7 kg
[~2023-10-22 17:49] MED LIST changes: -AMIODARONE HCL400 M2 PO; -Acetaminophen650 M1 PO; -BISA5EC PO; -CEPH250A PO; -DULCOLAX400 MG/5 M PO; -JARDIANCE10 MG PO; -METAMUCIL POWD798 GM PO; -MIRALAX17 GM PO; -SPIR25 PO; -[UNRECOGNIZED DRUG - OTHER] BOTHEYES
[2023-10-22] MEDS ORDERED: NS 1,000 ML IV SCH ×3 (18:30→21:25)
[2023-10-22] MEDS ORDERED: CEPH250A PO (19:11)
[2023-10-22 19:32] LABS: Source, Urine Clean Catch
[2023-10-22 19:35] LABS: Appearance, Urine Clear (Clear); Bilirubin, Urine Neg (Neg); Blood, Urine 3+ (Neg); Color, Urine Yellow (P-Yellow); Glucose Qualitative, Urine Neg (Neg); Ketones, Urine Neg (Neg); Leukocyte Esterase, Urine 2+ (Neg); Nitrite, Urine Pos (Neg); Protein, Urine 1+ (Neg); Urobilinogen, Urine NORM (Normal)
[2023-10-22 19:47] LABS: Bacteria Many /hpf; Squamous Epithelial Cells Few /hpf (Few); White Blood Cells, Urine 25-50 /hpf (0-5)
[2023-10-22 19:48] LABS: Hyaline Casts 0-2 /lpf (0-2); Renal Epithelial Rare /hpf (0-Rare)
[2023-10-22] MEDS ORDERED: CefTRIAXone Sodium 1,000 MG in NS 50 ML IV ONE (20:15)
[2023-10-22] MEDS ORDERED: Rocuronium Bromide 10 MG/ML 5ML Injection IV ONE (20:48)
[2023-10-22] MEDS ORDERED: EPINEPhrine HCl 0.1 MG/ML 10ML SYR XX ONE (20:48)
[2023-10-22] MEDS ORDERED: CefTRIAXone Sodium 1,000 MG in NS 100 ML IV SCH (21:00)
[2023-10-22 21:20] LABS: U Amphetamine Screen DETECTED; U Barbituate Screen Not Detected; U Benzodiazapine Screen Not Detected; U Buprenorphine Screen Not Detected; U Cannabinoids Screen Not Detected; U Cocaine Screen Not Detected; U Methadone Screen Not Detected; U Methamphetamine Screen DETECTED; U Opiates Screen Not Detected; U Oxycodone Screen Not Detected; U Phencyclidine Screen Not Detected
[2023-10-22] MEDS ORDERED: Ondansetron HCl 2 MG / ML 2ML Vial IV PRN (21:20)
[2023-10-22] MEDS ORDERED: Acetaminophen 325 MG TABLET PO PRN (21:25)
[2023-10-22] MEDS ORDERED: Metoprolol Tartrate 1 MG/ML 5 ML VIAL IV PRN (21:45)
[2023-10-22] MEDS ORDERED: Metoprolol Succinate 50 MG TABCR PO SCH (22:00)
[2023-10-22] MEDS ORDERED: Midazolam HCl 1MG / ML 2ML Vial IV ONE (22:15)
[2023-10-22 22:28] LABS: International Normalized Ratio 1.28; Prothrombin Time Results 13.4 Sec (9.7-11.5)
[2023-10-22 22:30] VITALS: BP 117/99
[2023-10-22 23:19] VITALS: BP 119/91
--- NOTE | 2023-10-22 23:45 | NUR ---
ARRIVAL TO UNIT AFTER RECEIVING REPORT FROM ED RN, PATIENT ARRIVED TO UNIT VIA ED [facility] AT APPROX 2225. PATIENT ABLE TO STAND AND TRANSFER FROM [facility] TO BED. CHANGED INTO HOSPITAL GOWN WITH MINIMAL TO NO ASSIST FROM STAFF. PATIENT ALERT AND ORIENTED X4. TELEMETRY SHOWING AFIB 120s-150s AT ARRIVAL. DENIES CHEST PAIN, PRESSURE. ASYMPTOMATIC OF INCREASES. BP STABLE. SCHEDULED PO METOPROLOL ADMINISTERED PER EMAR. RATE SUSTAINING >110. THIS RN ADMINISTERED X1 IV METOPROLOL PUSH PER EMAR. RATE CURRENTLY 110s-120s WITH INCREASES TO 130s. WILL CONTINUE TO MONITOR. ON ROOM AIR, SATs >90%. RESPIRATIONS EVEN, UNLABORED. HX OF RAYNAUD's. BRUISING TYPE DISCOLORATION TO BILATERAL FLANK NOTED, PICTURES IN CHART. PATIENT REPORTING THAT SHE NOTICED IT TODAY PRIOR TO TAKING A SHOWER, UNKNOWN TO WHAT CAUSED BRUISING. HYPEREMIA TO FEET, DESCRIBED TIGHT. TENDER TO TOUCH. FAINT PPP. PICTURES IN CHART. STAND BY ASSIST WITH MOBILITY FOR CORD, DEVICE MANAGEMENT. REPOSITIONS HERSELF IN BED INDEPENDENTLY. IVF INFUSING PER EMAR. CALL LIGHT IN REACH.
[2023-10-23] VITALS (15 sets, daily range): BP systolic 92–128; BP diastolic 60–99
[2023-10-23] MEDS ORDERED: Diltiazem HCl 5 MG / ML 5ML Vial IV ONE ×2 (00:25→02:50)
--- NOTE | 2023-10-23 00:30 | NUR ---
HEART RATE SUSTAINING 120s-130s DESPITE PO METOPROLOL AND IV METOPROLOL PUSH. MD DALY CONTACTED. RECEIVED ONE TIME ORDER FOR CARDIZEM 10MG IV PUSH WITH INSTRUCTION TO ADMINISTER A SECOND 10MG IV CARDIZEM PUSH IN ONE HOUR IF HEART RATE SUSTAINING >110. WILL ADMINISTER PER EMAR.
[2023-10-23 03:52] LABS: BASOPHILS ABSOLUTE AUTO 0.06 K/mm3 (0.00-0.23); BASOPHILS PERCENT AUTO 1 % (0-2); EOSINOPHILS ABSOLUTE AUTO 0.12 K/mm3 (0.00-0.68); EOSINOPHILS PERCENT AUTO 2 % (0-6); Hematocrit 48.8 % (33.0-51.0); Hemoglobin 15.6 g/dL (11.5-16.0); IMMATURE GRAN ABSOLUTE AUTO 0.02 K/mm3 (0.00-0.10); IMMATURE GRAN PERCENT AUTO 0 % (0-1); LYMPHOCYTES ABSOLUTE AUTO 1.81 K/mm3 (0.84-5.20); LYMPHOCYTES PERCENT AUTO 26 % (21-46); MONOCYTES ABSOLUTE AUTO 0.73 K/mm3 (0.16-1.47); MONOCYTES PERCENT AUTO 11 % (4-13); Mean Corpuscular Volume 97 fL (80-100); Mean Platelet Volume 10.5 fL (9.1-12.4); NEUTROPHILS ABSOLUTE AUTO 4.14 K/mm3 (1.96-9.15); NEUTROPHILS PERCENT AUTO 60 % (41-73); Platelet Count 235 K/mm3 (150-400); RDW Coefficient Variation 15.5 % (11.7-14.2); RDW Standard Deviation 53.4 fL (35.1-46.3); Red Blood Cell Count 5.04 M/mm3 (3.80-5.20); White Blood Cell Count 6.88 K/mm3 (4.00-11.30)
[2023-10-23 04:21] LABS: Albumin, Blood 3.3 g/dL (3.4-5.0); Albumin/Globulin Ratio 1.2 (0.8-1.8); Bilirubin, Total 1.5 mg/dL (0.1-1.0); Bun/Creatinine Ratio 31.6 (12.0-20.0); Calcium, Blood 8.5 mg/dL (8.5-10.1); Creatinine, Blood 2.44 mg/dL (0.40-1.00); Globulin, Blood 2.8 g/dL (2.2-4.0); Magnesium, Blood 2.1 mg/dL (1.6-2.4); Potassium, Blood 3.6 mmol/L (3.5-5.5); Total Protein, Blood 6.1 g/dL (6.4-8.2)
--- NOTE | 2023-10-23 05:19 | NUR ---
SHIFT SUMMARY NO ACUTE CHANGES SINCE ARRIVAL TO UNIT. PATIENT SLEPT INTERMITTENTLY THROUGHOUT. EASILY AROUSABLE TO VERBAL STIMULI. REPORTING INCREASED BILATERAL FEET PAIN 7/10. MEDICATED PER EMAR WITH PO TYLENOL AND ELEVATED HEELS OFF OF BED WITH REPORTED RELIEF. FOLLOWING FIRST 10MG IV CARDIZEM PUSH, HEART RATE DECREASED FROM 120s-130s TO 90s-100s. RATE BEGAN TO INCREASE >110 APPROX 3 HOURS LATER, SECOND DOSE OF 10MG IV CARDIZEM PUSH ADMINISTERED PER EMAR. TELEMETRY CURRENTLY SHOWING AFIB 90s-100s. RATE DOES INCREASE 110s-120s WITH MOBILITY. BP STABLE. PATIENT REMAINS ASYMPTOMATIC WITH RATE INCREASES. DENIES CHEST PAIN, PRESSURE. REMAINS ON ROOM AIR, SATs >90%. RESPIRATIONS EVEN, UNLABORED. PATIENT IS A STAND BY ASSIST TO RESTROOM. REPOSITIONS HERSELF INDEPENDENTLY IN BED. VOIDING. NO BM THIS SHIFT. IVF INFUSING PER EMAR. CALL LIGHT IN REACH. WILL CONTINUE TO MONITOR AND REPORT TO ONCOMING RN.
--- NOTE | 2023-10-23 07:34 | NUR ---
Bedside report received from ROSANA Camacho. Pt has very red hands, feet and lower legs. No edema. Some redness of her bilateral flanks, with tiny petechiae noted. Pt states that she has increased pain 4/10 in her flanks when she takes deep breaths in. She is asking for something for relief of the pain. Feet are also very tender. States that the redness has been going on for about 2 weeks. IV NS infusing at 100 cc/hour. Heart rate is 115, atrial fibrillation. Given 100 mg Toprol XL p.o. as scheduled at this time.
[2023-10-23] MEDS ORDERED: Methimazole 10 MG Tab PO SCH (09:00)
[2023-10-23] MEDS ORDERED: Apixaban 5 MG Tab PO SCH (09:00)
[2023-10-23] MEDS ORDERED: Fluconazole 100 MG Tab PO SCH (12:10)
--- NOTE | 2023-10-23 16:01 | NUR ---
Pt is lying in bed, appears to be sleeping. Heart rate 122 bpm, atrial fibrillation.
--- NOTE | 2023-10-23 16:18 | NUR ---
IV metoprolol given x 1 per prn orders for heart rate 120-140 bpm, atrial fibrillation. Pt was sleepy but arousable. It did not have any effect on her heart rate. Blood pressure lowered slightly to 106/74 but heart rate actually increased, to 144-160 bpm while up to void shorly afterwards. Pt denies any lightheadedness/dizzyness while up to void.
[2023-10-23] MEDS ORDERED: Diltiazem HCl 180 MG Cap.CD PO SCH (16:35)
--- NOTE | 2023-10-23 16:49 | NUR ---
Dr. Melvin here to see the patient.
[2023-10-24 03:40] LABS: BASOPHILS ABSOLUTE AUTO 0.06 K/mm3 (0.00-0.23); BASOPHILS PERCENT AUTO 1 % (0-2); EOSINOPHILS ABSOLUTE AUTO 0.14 K/mm3 (0.00-0.68); EOSINOPHILS PERCENT AUTO 2 % (0-6); Hematocrit 48.3 % (33.0-51.0); Hemoglobin 15.3 g/dL (11.5-16.0); IMMATURE GRAN ABSOLUTE AUTO 0.01 K/mm3 (0.00-0.10); IMMATURE GRAN PERCENT AUTO 0 % (0-1); LYMPHOCYTES ABSOLUTE AUTO 1.42 K/mm3 (0.84-5.20); LYMPHOCYTES PERCENT AUTO 22 % (21-46); MONOCYTES ABSOLUTE AUTO 0.69 K/mm3 (0.16-1.47); MONOCYTES PERCENT AUTO 11 % (4-13); Mean Corpuscular HGB 30.8 pg (26.0-34.0); Mean Corpuscular HGB Conc 31.7 g/dL (31.5-36.5); Mean Corpuscular Volume 97 fL (80-100); Mean Platelet Volume 10.3 fL (9.1-12.4); NEUTROPHILS ABSOLUTE AUTO 4.14 K/mm3 (1.96-9.15); NEUTROPHILS PERCENT AUTO 64 % (41-73); Platelet Count 194 K/mm3 (150-400); RDW Coefficient Variation 15.6 % (11.7-14.2); RDW Standard Deviation 54.4 fL (35.1-46.3); Red Blood Cell Count 4.96 M/mm3 (3.80-5.20); White Blood Cell Count 6.46 K/mm3 (4.00-11.30)
[2023-10-24 04:01] LABS: Albumin, Blood 3.2 g/dL (3.4-5.0); Albumin/Globulin Ratio 1.1 (0.8-1.8); Bilirubin, Total 1.3 mg/dL (0.1-1.0); Bun/Creatinine Ratio 30.1 (12.0-20.0); Calcium, Blood 8.5 mg/dL (8.5-10.1); Creatinine, Blood 1.86 mg/dL (0.40-1.00); Globulin, Blood 2.8 g/dL (2.2-4.0); Potassium, Blood 4.2 mmol/L (3.5-5.5)
[2023-10-24 04:13] VITALS: BP 132/100
[2023-10-24 05:19] LABS: Eosinophils-Raw #,Urine 0
--- NOTE | 2023-10-24 05:50 | NUR ---
SHIFT SUMMARY PT A&Ox4, CALLS AND COMMUNICATES NEEDS APPROPRIATELY. BP STABLE, AFIB 90-110'S, DENIES CP/PRESSURE. SpO2> 92% RA, DENIES SOB. CONTINENT OF URINE, SBA TO BATHROOM. PT RESTED COMFORTABLY THROUGHOUT SHIFT. NS INFUSING @ 100mLs/hr. NO OTHER EVENTS, WILL REPORT TO ONCOMING RN.
--- NOTE | 2023-10-24 07:13 | NUR ---
Bedside report received from ROSANA Juares. The pt appears to be sleeping. Heart rate well controlled overall last night, hovering around 100 bpm, per education dean Dior.
[2023-10-24 08:32] VITALS: BP 133/106
--- NOTE | 2023-10-24 08:38 | NUR ---
The pt is apparently sleeping. Vital signs taken, she rouses barely and cooperates with care, minimally conversant. NS infusing IV at 100 cc/hour right wrist site. Able to awaken to take p.o. medications.
[2023-10-24] MEDS ORDERED: Diltiazem HCl 180 MG Cap.CD PO SCH (09:00)
--- NOTE | 2023-10-24 09:11 | NUR ---
The pt states that her feet and legs were relieved of pain by running water over them in the shower. They are less red than they were yesterday. She states that her hands are also feeling better. Noted that she has some expiratory wheezing on the left side, both anterior and posterior. No crackles noted. She says that she is feeling like her breathing is a little less than normal. Denies asthma, smoking, or COPD. States that she stopped smoking years ago. Spo2 96% on room air.
--- NOTE | 2023-10-24 12:35 | NUR ---
Telephone report given to Anjelica WAYNE. Pt is transferring to 336 by wheelchair at this time. Rod is accompanying her.
[2023-10-24 12:47] VITALS: BP 121/106
--- NOTE | 2023-10-24 13:00 | NUR ---
PCU TRANSFER TO MEDICAL FLOOR PATIENT ARRIVED VIA WHEELCHAIR AND SELF TRANSFERRED TO BED. SETTLED IN ROOM, NEEDS MET, NO SIGNS OR SYMPTOMS OF DISTRESS. GAYATHRI AT BEDSIDE.
[2023-10-24] MEDS ORDERED: Ipratropium/Albuterol SulF 2.5-0.5MG/3 ML Amp INH PRN (14:35)
--- NOTE | 2023-10-24 14:36 | NUR ---
PATIENT C/O HER CHEST FEELING HEAVY AND INCREASED DIFFICULTY BREATHING. CALL MADE TO DR. DIOP. ORDER TO D/C IV FLUIDS AND ADD BREATHING TREATMENT FOR WHEEZING.
[2023-10-24 17:50] VITALS: BP 106/68
[2023-10-24 19:49] VITALS: BP 118/87
[2023-10-25] VITALS (9 sets, daily range): BP systolic 131–160; BP diastolic 95–125
--- NOTE | 2023-10-25 05:20 | NUR ---
SHIFT SUMMARY PATIENT IS A 58 YEAR OLD FEMALE ADMITTED WITH ACUTE KIDNEY INJURY AND HYPOKALEMIA. SHE IS INDEPENDENT IN THE ROOM. OXYGEN SATURATION IS WITHIN NORMAL RANGE ON ROOM AIR. SHE DOES HAVE SOME EXPIRATORY WHEEZING. DENIES PAIN. SHE HAS AN IV IN HER RIGHT WRIST THAT IS SALINE LOCKED. BED IS IN LOW POSTION WITH CALL LIGHT IN REACH.
[2023-10-25 05:21] LABS: BASOPHILS ABSOLUTE AUTO 0.06 K/mm3 (0.00-0.23); BASOPHILS PERCENT AUTO 1 % (0-2); EOSINOPHILS ABSOLUTE AUTO 0.11 K/mm3 (0.00-0.68); EOSINOPHILS PERCENT AUTO 1 % (0-6); Hematocrit 51.6 % (33.0-51.0); Hemoglobin 16.3 g/dL (11.5-16.0); IMMATURE GRAN ABSOLUTE AUTO 0.02 K/mm3 (0.00-0.10); IMMATURE GRAN PERCENT AUTO 0 % (0-1); LYMPHOCYTES ABSOLUTE AUTO 1.69 K/mm3 (0.84-5.20); LYMPHOCYTES PERCENT AUTO 18 % (21-46); MONOCYTES PERCENT AUTO 10 % (4-13); Mean Corpuscular HGB Conc 31.6 g/dL (31.5-36.5); Mean Corpuscular Volume 98 fL (80-100); Mean Platelet Volume 10.3 fL (9.1-12.4); NEUTROPHILS ABSOLUTE AUTO 6.48 K/mm3 (1.96-9.15); NEUTROPHILS PERCENT AUTO 70 % (41-73); Platelet Count 215 K/mm3 (150-400); RDW Coefficient Variation 15.6 % (11.7-14.2); RDW Standard Deviation 55.8 fL (35.1-46.3); Red Blood Cell Count 5.26 M/mm3 (3.80-5.20); White Blood Cell Count 9.26 K/mm3 (4.00-11.30)
[2023-10-25 05:47] LABS: Albumin, Blood 3.4 g/dL (3.4-5.0); Bilirubin, Total 1.4 mg/dL (0.1-1.0); Bun/Creatinine Ratio 32.8 (12.0-20.0); Calcium, Blood 8.9 mg/dL (8.5-10.1); Creatinine, Blood 1.22 mg/dL (0.40-1.00); Globulin, Blood 3.3 g/dL (2.2-4.0); Potassium, Blood 4.5 mmol/L (3.5-5.5); Total Protein, Blood 6.7 g/dL (6.4-8.2)
[2023-10-25] MEDS ORDERED: CloNIDine 0.1 MG Tab PO ONE (11:00)
[2023-10-25] MEDS ORDERED: HydrALAZINE HCl 10 MG Tab PO SCH (11:00)
[2023-10-25] MEDS ORDERED: CloNIDine 0.1 MG Tab PO PRN (17:00)
--- NOTE | 2023-10-25 17:16 | NUR ---
SHIFT SUMMARY PT AxOx4. COOPERATIVE WITH CARE. PT IS VISIBLY SHORT OF BREATH TODAY. RESP THERAPY CALLED FOR BREATHING TREATMENTS PRN. PT WAS ALSO PLACED ON 2L-4L O2 VIA NC WITH MODERATE RELIEF. SAT'S FLUCTUATED BETWEEN 88-96% SAT'S AT 94%. PT FOUND THE MOST TOLERABLE POSITION TO BE SITTING UPRIGHT ON EDGE OF BED LEANING FORWARD OVER TABLE OR CHAIR. PT'S SPOUSE, GAYATHRI IN THE ROOM FOR MOST OF THE DAY. PT HAD ECHO AND BLE ARTERIAL STUDY COMPLETED TODAY. PT REPORTED PAIN x1 FOR A HEADACHE THIS MORNING. SHE WAS MEDICATED PER EMAR WITH RELIEF. PER PRINCIPAL TECHNICAL WRITER, PT HAD 2 RUNS OF VTACH THIS SHIFT W/ AVG OF AFIB IN THE LOW 100'S. PROVIDER NOTIFIED. PT IS CURRENTLY STILL STRUGGLING TO BREATHE ON AND OFF. THERAPEUTIC COMMUNICATION PROVIDED, ALONG WITH RT IN FOR ASSIST. PT IS CURRENTLY RESTING IN BED ON SIDE IN UPRIGHT POSITION WITH FAMILY AT BEDSIDE. CALL LIGHT IN REACH. DENIES ANY NEEDS AT THIS TIME.
[2023-10-26] VITALS (69 sets, daily range): BP systolic 69–159; BP diastolic 57–110
[2023-10-26 00:53] LABS: COMPLEMENT COMPONENT 3 98 mg/dL (90-180); COMPLEMENT COMPONENT 4 21 mg/dL (10-40)
[2023-10-26 04:51] LABS: BASOPHILS ABSOLUTE AUTO 0.04 K/mm3 (0.00-0.23); BASOPHILS PERCENT AUTO 0 % (0-2); EOSINOPHILS ABSOLUTE AUTO 0.02 K/mm3 (0.00-0.68); EOSINOPHILS PERCENT AUTO 0 % (0-6); Hematocrit 51.7 % (33.0-51.0); Hemoglobin 16.5 g/dL (11.5-16.0); IMMATURE GRAN ABSOLUTE AUTO 0.05 K/mm3 (0.00-0.10); IMMATURE GRAN PERCENT AUTO 0 % (0-1); LYMPHOCYTES ABSOLUTE AUTO 1.12 K/mm3 (0.84-5.20); LYMPHOCYTES PERCENT AUTO 9 % (21-46); MONOCYTES ABSOLUTE AUTO 1.04 K/mm3 (0.16-1.47); MONOCYTES PERCENT AUTO 8 % (4-13); Mean Corpuscular HGB 30.6 pg (26.0-34.0); Mean Corpuscular HGB Conc 31.9 g/dL (31.5-36.5); Mean Corpuscular Volume 96 fL (80-100); Mean Platelet Volume 9.7 fL (9.1-12.4); NEUTROPHILS ABSOLUTE AUTO 10.52 K/mm3 (1.96-9.15); NEUTROPHILS PERCENT AUTO 82 % (41-73); Platelet Count 187 K/mm3 (150-400); RDW Coefficient Variation 15.2 % (11.7-14.2); RDW Standard Deviation 52.9 fL (35.1-46.3); White Blood Cell Count 12.79 K/mm3 (4.00-11.30)
--- NOTE | 2023-10-26 05:06 | NUR ---
CALLED AND SPOKE TO PT'S , GAYATHRI, BRIEFLY EXPLAINED WHAT HAD OCCURED WITH THE PATIENT RELATED TO THE CODE. GAYATHRI STATES HE LIVES A COUPLE OF MILES AWAY AND IS GOING TO COME IN TO THE HOSPITAL TO GET MORE INFORMATION ABOUT WHAT HAPPENED AND WHAT IS HAPPENING NOW TO MAKE A BETTER INFORMED DECISION. CALLED THE CUSTOMER SALES DISTRIBUTOR TO LET THEM KNOW.
[2023-10-26 05:22] LABS: Albumin, Blood 3.5 g/dL (3.4-5.0); Bilirubin, Total 2.7 mg/dL (0.1-1.0); Bun/Creatinine Ratio 28.4 (12.0-20.0); Calcium, Blood 9.2 mg/dL (8.5-10.1); Creatinine, Blood 0.81 mg/dL (0.40-1.00); Globulin, Blood 3.6 g/dL (2.2-4.0); Magnesium, Blood 1.6 mg/dL (1.6-2.4); Potassium, Blood 3.9 mmol/L (3.5-5.5); Total Protein, Blood 7.1 g/dL (6.4-8.2)
[2023-10-26] MEDS ORDERED: LORazepam 2 MG/ML 1ML Injection ONE (05:26)
[2023-10-26] MEDS ORDERED: LORazepam 2 MG/ML 1ML Injection IV ONE (05:30)
[2023-10-26] MEDS ORDERED: Midazolam HCL 50 MG in NS 40 ML IV PRN (05:40)
[2023-10-26 06:06] LABS: pH Blood Venous 7.34 (7.34-7.37)
[2023-10-26 06:07] LABS: Base Excess Venous -4.7 mmol/L; Bicarbonate Venous 20.8 mmol/L (24.0-30.0); PCO2 Venous 39.4 mmHg (38-42)
--- NOTE | 2023-10-26 06:09 | NUR ---
SHIFT SUMMARY PATIENT IS A 58 YEAR OLD FEMALE ADMITTED WITH ACUTE KIDNEY INJURY AND HYPERKALEMIA. SHE IS ALERT AND ORIENTD X 4. SHE IS ON OXYGEN AT 3 L PER NC. PATIENT SITS UP ON THE SIDE OF THE BED DUE TO BECOMING SHORT OF BREATH WHEN SHE LAYS DOWN. HER LUNGS SOUNDS ARE CLEAR. SHE DOES HAVE SOME UPPER RESPIRATORY WHEEZES NOTED WHICH SOUND BRONCHIAL. SHE IS ON TELE IN ATRIAL FIB WITH A RATE BETWEEN 110 TO 150. PATIENT'S HEART RATE GOES UP WITH MINIMAL EXERTION. DR. BENY PAUL IN AROUND 8:30 PM TO SEE PATIENT AND SPOKE WITH HER REGARDING HER CARE. PATIENT'S BLOOD PERESSURE HAS BEEN ELEVATED THIS SHIFT. SHE WAS GIVEN PRN APPRESOLINE AND CATAPRESS IN ADDITION TO HER ROUTINE MEDICATION. IT DID BRING HER HEART RATE AND BP DOWN SOME. INFORMATION ABOUT SHORTNESS OF BREATH, HR, AND BP REPORTED TO CHARGE NURSE. PATIENT REQUESTED PUDDING AND GIORGI CRACKERS. TOLERATED WELL. PATIENT AMBULATORY TO THE BATHROOM AND BACK TO BED. RECLINER BROUGHT INTO THE ROOM TO SEE IF PATIENT WOULD BE MORE COMFORTABLE SITTING IN IT. SHE SAT IN IT FOR A FEW MINUTES BUT MOVED BACK TO SITTING ON THE SIDE OF THE BED. TALKED WITH PATIENT AND INSTRUCTED HER ON PURSED LIP BREATHING TO SLOW HER RESPIRATORY RATE. RETOUCHER PHOTOENGRAVING IN AND LEN BLOOD ON PATIENT THIS AM. WHEN SHE WALKED OUT OF THE ROOM, SHE HEARD THE PATIENT FALL TO THE FLOOR. THE DOCTOR WAS ON THE UNIT AND CAME RIGHT INTO THE ROOM. CODE TEAM IN AND CODE STARTED. PATIENT TRANSFERRED TO ICU.
[2023-10-26] MEDS ORDERED: NS 1,000 ML IV SCH (06:15)
[2023-10-26] MEDS ORDERED: FentaNYL Citrate 50 MCG/ML 2 ML Injection ONE (06:22)
[2023-10-26] MEDS ORDERED: FentaNYL Citrate 50 MCG/ML 2 ML Injection IV ONE (06:25)
[2023-10-26] MEDS ORDERED: Vancomycin HCL 2,500 MG in NS 250 ML IV ONE (06:30)
[2023-10-26] MEDS ORDERED: Magnesium Sulfate 500 MG / ML 2ML Vial IV ONE (06:59)
[2023-10-26] MEDS ORDERED: EPINEPhrine HCl 0.1 MG/ML 10ML SYR IV ONE (06:59)
[2023-10-26] MEDS ORDERED: Amiodarone HCl 50 MG / ML 3 ML Amp IV ONE (06:59)
[2023-10-26] MEDS ORDERED: Sodium Bicarb 8.4% 50 mEq Syringe IV ONE (06:59)
[2023-10-26] MEDS ORDERED: Piperacillin/Tazobactam Sod 4.5 GM in NS 100 ML IV SCH (07:00)
--- NOTE | 2023-10-26 07:25 | NUR ---
PT TRANSFER TO ICU 12: PT TRANSFERRED FROM MEDICAL FLOOR POST-CODE. PT ARRIVES INTUBATED WITH 7.5 ETT AND 24 CM @ TEETH. CURRENT VENT SETTINGS ARE AC/PC: RATE- 20, PI- 15, PEEP- 8, AND FIO2 100%. PT SEDATED WITH VERSED GTT @ 6 MG/HR. PT SPO2 92<, HR 70-80'S, AND SBP 90'S WITH MAP 65<. AMIO GTT @ 1 MG/HR. CENTRAL LINE PLACED AT BEDSIDE ONCE PT ARRIVED TO UNIT BY ADDY; AIDEN QUAD LUMEN WITH ALL DRIPS INFUSING. OGT PLACED. PT TO IMAGING POST LINE PLACEMENT AND HEAT CT, CT PE AND CXR COMPLETED. PER ADDY LINE OKAY TO USE WHILE WAITING FOR XRAY RESULTS. PT HAS BEEN WELL SEDATED ON VERSED AND REQUIRED ONE PUSH OF 50 MCG FENTANYL FOR VENT COMPLIANCE. PT'S , GAYATHRI, ARRIVED AND UPDATED BY DR DALY AND IS AT BEDSIDE NOW WITH PT, ALONG WITH PT'S SISTER LAYNE. BEDSIDE SHIFT REPORT GIVEN TO ROSANA VALDEZ.
[2023-10-26] MEDS ORDERED: NS 250 ML IV PRN (07:40)
[2023-10-26 08:22] LABS: Source, Urine Foley catheter
[2023-10-26 08:32] LABS: Appearance, Urine Hazy (Clear); Bilirubin, Urine Neg (Neg); Blood, Urine 2+ (Neg); Color, Urine Yellow (P-Yellow); Glucose Qualitative, Urine 2+ (Neg); Ketones, Urine Neg (Neg); Leukocyte Esterase, Urine Neg (Neg); Nitrite, Urine Neg (Neg); Protein, Urine 4+ (Neg); Specific Gravity, Urine 1.015 (1.003-1.022); Urobilinogen, Urine NORM (Normal)
[2023-10-26 08:42] LABS: Bacteria Few /hpf; Renal Epithelial Rare /hpf (0-Rare); Squamous Epithelial Cells Few /hpf (Few)
[2023-10-26 08:43] LABS: Amorphous Light (0-Heavy); Granular Casts 0-2 /lpf (0); Hyaline Casts 0-2 /lpf (0-2)
[2023-10-26 08:48] LABS: U Amphetamine Screen DETECTED; U Barbituate Screen Not Detected; U Benzodiazapine Screen Not Detected; U Buprenorphine Screen Not Detected; U Cannabinoids Screen DETECTED; U Cocaine Screen Not Detected; U Methadone Screen Not Detected; U Methamphetamine Screen DETECTED; U Opiates Screen Not Detected; U Oxycodone Screen Not Detected; U Phencyclidine Screen Not Detected
[2023-10-26] MEDS ORDERED: Pantoprazole Sodium 40 MG Injection IV SCH (09:00)
[2023-10-26] MEDS ORDERED: Lisinopril 5 MG Tab PO SCH (09:00)
[2023-10-26] MEDS ORDERED: Potassium Chloride 20 MEQ/15 ML UDC PT ONE (09:00)
[2023-10-26] MEDS ORDERED: Furosemide 10 MG / ML 2ML Vial IV SCH (09:00)
[2023-10-26] MEDS ORDERED: propofoL 100 ML IV SCH (09:00)
[2023-10-26] MEDS ORDERED: Enoxaparin 100 MG/ML 1ML SYR SC SCH (09:00)
--- NOTE | 2023-10-26 10:37 | NUR ---
CARE OF PT ASSUMED AT 0700, BEDSIDE REPORT TAKEN. PT SEDATED ON VERSED AT 6MG/HR FOR MECH VENT TOLERANCE. AC/PC 20/100%/8. FIO2 HAS BEEN DECREASED TO 80% BY RT. PT DOES NOT TOLERATE TURNS; PT TURNED TO REMOVE OLD LINEN FROM TRANSFER AND TO EXAM BACK, SATS DROPPED TO 56%, FACE BECAME DUSKY W CYANOTIC LIPS AND NOSE. WHEN PLACED IN FOWLERS SATS RECOVERED WITHIN 5MIN. SATS NOW >90%. DR NORMAN CONSULTED AND CALLED THIS AM TO GIVE UPDATE. DR NORMAN PLACED NEW ORDERS. ADAMES CATHETER PLACED, UA SENT TO LAB. VERSED DC'D AND WASTED WITH BROOKE ANGULO RN AT 0930: 30CC WASTED, 19.1CC CLEARED FROM PUMP. GENTLE DIURESIS STARTED W LASIX. PROPOFOL STARTED AT 15MCG, LEVOPHED GTT IS AT 4MCG . PT MOVES ALL EXTREMITIES INDEPENDENTLY, MOVES ALSO TO NOXIOUS STIMULI. WEAK COUGH, ABSENT GAG, ABSENT SWALLOW. PUPILS 2/2 SLUGGISH/REACTIVE. OGT PLACED TO LIS THEN CLAMPED. SMALL AMT OF BILE TO TUBE. LUNGS COARSE T/O DIMINISHED TO BASES. FEET MOTTLED, SEVERAL TOES TO LEFT FOOT WITH NECROTIC SPOTS, WILL TAKE PICTURES. PULSES TO BILAT FEET PER DOPPLER ONLY. DR ROJAS AT BEDSIDE AND SPOKE W FAMILY.
[2023-10-26] MEDS ORDERED: Furosemide 10 MG / ML 2ML Vial IV ONE (10:55)
--- NOTE | 2023-10-26 11:29 | NUR ---
DR NORMAN AT BEDSIDE AT 1045. FULL UPDATE GIVEN. PROPOFOL STOPPED TO ASSESS NEURO STATUS. WHILE DR NORMAN UPDATING PT'S FAMILY AT BEDSIDE, HR STARTED TO TREND DOWN LOW 48, BP TRENDED DOWN W MAP <60 (LEVOPHED UP TO 12MCG), ETCO2 TRENDING DOWN TO 16 W WEAK PULSE. SPO2 DROPPED TO LOW 80% THAN INTO 70%. FIO2 INCREASED TO 100%. EPI 1MG PUSH GIVEN AT 1111. LEVOPHED TITRATED UP TO 20MCG. PROPOFOL RESTARTED AT 1114 FOLLOWED BY KATARINA 50MG AT 1116. WITHIN 2MIN OF KATARINA SATS RECOVERED >90%. EPI GTT STARTED AT 2MCG/HR. HR NOW 84, MAP >65, SATS 97%, ETCO2 28. EKG COMPLETED.
--- NOTE | 2023-10-26 11:36 | NUR ---
LASIX 20MG ONE TIME DOSE ORDERED BY DR NORMAN; THIS DOSE IS ON HOLD. ORDERS TO GIVE IN 40MIN IF BP STABLE/IMPROVED.
[2023-10-26] MEDS ORDERED: Hydrogen Peroxide 1.5 % Solution MT SCH (12:00)
[2023-10-26] MEDS ORDERED: NS 500 ML IV SCH (12:45)
--- NOTE | 2023-10-26 14:26 | NUR ---
DURING ATTEMPTED PLACEMENT OF FEMORAL ARTRIAL LINE PT WENT INTO VTACH. DR. NORMAN AT BEDSIDE AND RAN CODE. CODE STARTED AT 1355, PT SHOCKED IMMEDIATELY, FOLLOWED BY CPR. AFTER SHOCK PT'S RHTHYM CHANGED TO TACHYCARDIA W PEA. PT RECEIVED SEVERAL ROUNDS OF EPI ALONG WITH CONTINUED CPR. EPI GTT WAS INCREASED TO 10MCG, LEVOPHED GTT WAS INCREASED TO 30MCG, AMIO GTT WAS INCREASED TO 1MG/MIN. FAMILY WAS BROUGHT TO BEDSIDE SHORTLY AFTER CODE STARTED. AT 1407 PULSE WAS FELT; CODE STOPPED. DR NORMAN SPOKE WITH FAMILY, PT NOW DNR STATUS. FAMILY AT BEDSIDE, PALLIATIVE CARE AVAILABLE FOR SUPPORT. FAMILY UNDERSTANDS THAT PASSING MAY BE IMMINENT, AND AGREES NO FURTHER INTERVENTIONS TO BE PREFORMED. PT TO STAY ON CURRENT GTT'S AND VENT TO GIVE FAMILY TIME TO SAY GOODBYE. PLEASE REFER TO CODE BLUE SHEET FOR FULL CODE DETAILS.
[2023-10-26] MEDS ORDERED: Albuterol 2.5 MG/3 ML VIAL INH PRN (15:15)
--- NOTE | 2023-10-26 15:51 | NUR ---
WAS CALLED WHEN TO PROVIDE EMOTIONAL SUPPORT FOR FAMILY DURING CODE OF PATIENT. AFTER APPROX TEN MINUTES OF CPR PROVIDER DISCUSSED CEASING CPR AND NOT PURSUING RESUSCITATION IF [facility] STOPS AGAIN. FAMILY WAS AGREEABLE TO THIS PLAN. PC WILL REMAIN AVALIABLE.
--- NOTE | 2023-10-26 16:31 | NUR ---
SATS BETWEEN 88-92%. EPI GTT AT 5MCG, LEVOPHED AT 25MCG, AMIO GTT AT 1MG/MIN, PROPOFOL AT 15MCG. SINUS 70'S, MAPS >65. PT GRIMACED W ORAL CARE AND MOUTHED ORAL SWAB. PUPILS 2/2 SLUGGISH AND REACTIVE. HANDS AND FEET CYANOTIC. DR NORMAN UPDATED. PLAN: CONTINUE CURRENT CARE, NO ESCALATION OF MEDS/PRESSORS. DR NORMAN SPOKE WITH FAMILY ABOUT COMFORT CARE OPTIONS, FAMILY TO DISCUSS; AWAITING FAMILY MEMBERS TO ARRIVE FROM OUT OF TOWN.
[2023-10-26] MEDS ORDERED: Vancomycin HCL 1,500 MG in NS 250 ML IV SCH (18:00)
[2023-10-26] MEDS ORDERED: CefTRIAXone Sodium 1,000 MG in NS 100 ML IV SCH (21:00)
[2023-10-27] VITALS (93 sets, daily range): BP systolic 106–135; BP diastolic 69–85
--- NOTE | 2023-10-27 06:25 | NUR ---
SHIFT SUMMARY: NO ACUTE CHANGES, VSS THROUGHOUT THE SHIFT. PT REMAINS INTUBATED AND SEDATED WITH VENT SETTINGS AC/PC RATE-16, PI- 15, PEEP- 8, FIO2 60% AND PROPOFOL GTT @ 25 MCG/KG/MIN. PT RESPONDS TO PAIN STIMULI AND PERRLA BILAT. LUNG SOUNDS ARE COARSE THROUGHOUT WITH DIM BASES; SPO2 94<. PT SR ON MONITOR WITH HR 70-90'S AND SBP 120'S. ABD ROUND, SOFT AND NON-TENDER WITH HYPOACTIVE BOWEL SOUNDS NOTED. OGT IN PLACE AND CLAMPED. ADAMES IN PLACE AND DRAINING TO GRAVITY; 75 ML URINE OUTPUT, URINE RC AND CLOUDY. CLA UPDATED AND HAVE SIGNED OFF OF CASE.
[2023-10-27 08:11] LABS: BASOPHILS ABSOLUTE AUTO 0.14 K/mm3 (0.00-0.23); BASOPHILS PERCENT AUTO 1 % (0-2); EOSINOPHILS ABSOLUTE AUTO 0.05 K/mm3 (0.00-0.68); EOSINOPHILS PERCENT AUTO 0 % (0-6); Hematocrit 45.4 % (33.0-51.0); Hemoglobin 14.6 g/dL (11.5-16.0); IMMATURE GRAN ABSOLUTE AUTO 0.05 K/mm3 (0.00-0.10); IMMATURE GRAN PERCENT AUTO 0 % (0-1); LYMPHOCYTES ABSOLUTE AUTO 2.13 K/mm3 (0.84-5.20); LYMPHOCYTES PERCENT AUTO 14 % (21-46); MONOCYTES ABSOLUTE AUTO 1.65 K/mm3 (0.16-1.47); MONOCYTES PERCENT AUTO 11 % (4-13); Mean Corpuscular HGB 30.7 pg (26.0-34.0); Mean Corpuscular HGB Conc 32.2 g/dL (31.5-36.5); Mean Corpuscular Volume 95 fL (80-100); Mean Platelet Volume 10.7 fL (9.1-12.4); NEUTROPHILS ABSOLUTE AUTO 11.61 K/mm3 (1.96-9.15); NEUTROPHILS PERCENT AUTO 74 % (41-73); Platelet Count 193 K/mm3 (150-400); RDW Coefficient Variation 14.9 % (11.7-14.2); RDW Standard Deviation 51.8 fL (35.1-46.3); Red Blood Cell Count 4.76 M/mm3 (3.80-5.20); White Blood Cell Count 15.63 K/mm3 (4.00-11.30)
[2023-10-27 08:26] LABS: Albumin, Blood 2.6 g/dL (3.4-5.0); Albumin/Globulin Ratio 0.8 (0.8-1.8); Bilirubin, Total 2.3 mg/dL (0.1-1.0); Bun/Creatinine Ratio 18.1 (12.0-20.0); Calcium, Blood 8.6 mg/dL (8.5-10.1); Creatinine, Blood 1.88 mg/dL (0.40-1.00); Globulin, Blood 3.1 g/dL (2.2-4.0); Magnesium, Blood 1.6 mg/dL (1.6-2.4); Phosphorus, Blood 2.8 mg/dL (2.5-4.9); Potassium, Blood 4.5 mmol/L (3.5-5.5); Total Protein, Blood 5.7 g/dL (6.4-8.2)
[2023-10-27] MEDS ORDERED: FentaNYL Citrate 50 MCG/ML 2 ML Injection ONE (08:51)
[2023-10-27] MEDS ORDERED: FentaNYL Citrate 50 MCG/ML 2 ML Injection IV ONE (08:55)
--- NOTE | 2023-10-27 09:24 | NUR ---
CARE OF PT ASSUMED AT 0700, BEDSIDE REPORT TAKEN, GTT'S REVIEWED. AMIO GTT AT 1MG/MIN, LEVOPHED INITIALLY AT 25MCG/MIN, EPI AT 7MCG/MIN, PROPOFOL INITIALLY AT 25MCG/KG/MIN. VENT AC/PC 16/60%/8. SATS INITIALLY 95-100%. LEVOPHED HAS BEEN TITRATED DOWN TO 20MCG W GOAL MAP >65. PT BECAME AGITATED WITH ORAL CARE AND PURPOSEFULLY LIFTED RIGHT AND LEFT ARM TOWARD ETT; RESTRAINTS PLACED. FAMILY AT BEDSIDE TALKING WITH PT/STIMULATING PATIENT. PT BECAME VERY AGITATED, LIGHTLY THRASHING, ATTEMPTING TO SIT UP, RESP HIGH 40'S, SATS DROPPED TO 50'S. FIO2 INCREASED TO 100%. DR NORMAN CALLED, PROPOFOL INCREASED TO 50MCG, FENT 50MCG GIVEN. PROPOFOL HAS BEEN TITRATED DOWN TO 40MCG. PT CALM AND RESTING NOW. SATS RECOVERED AFTER PT SEDATED~ 3MIN. FAMILY UPDATED AND IT WAS COMMUNICATED THAT STIMULATION WILL BE KEPT A MINIMUM FOR NOW. DR SAAB AT BEDSIDE AND SPOKE WITH PT'S SISTERS. GIVEN UPDATE.
--- NOTE | 2023-10-27 12:33 | NUR ---
DR NORMAN IN TO SEE PT, FULL UPDATE GIVEN. DR NORMAN SPOKE W FAMILY INCLUDING PT'S . PT TO REMAIN DNR, WILL CONTINUE FULL CARE. WILL ATTEMPT TURNS, PREMEDICATING NEEDED. LEVOPHED AT 18MCG, EPI AT 7MCG. DR NORMAN WILL EVALUATE AMIO GTT. MAG 2GM ORDERED.
[2023-10-27] MEDS ORDERED: Magnesium Sulf 2 GM/Water 50ML 50 ML IV ONE (12:35)
[2023-10-27] MEDS ORDERED: FentaNYL Citrate 50 MCG/ML 2 ML Injection IV PRN (12:35)
--- NOTE | 2023-10-27 13:11 | NUR ---
PT BECAME MORE AGITATED AFTER TURN, SATS DROPPED TEMP TO LOW 80'S. DR NORMAN IN UNIT AND ASKED THAT KATARINA 50MG BE AVAILABLE. AMIODARONE DECREASED TO 0.5MG/MIN, TO BE STOPPED AFTER 6HRS. PO AMIO TO START TONIGHT. MAG STARTED.
[2023-10-27] MEDS ORDERED: Bumetanide 0.25 MG/ML 4ML ViaL IV SCH (14:00)
--- NOTE | 2023-10-27 15:09 | NUR ---
ASSESSED SHERI TODAY. SHE VS WERE IMPROVED FROM YESTERDAY. FAMILY AT BEDSIDE. PER PROVIDER SHE WILL REMAIN DNR BUT WILL CONTINUE TREATMENT. SHE HAS HAD SOME EPISODES OF RESTLESSNESS AND PULLING AT RESTRAINTS. SHE APPEARS COMFORTABLE AT THIS TIME. SHE IS INTUBATED AND SATS ARE MAINTAINING.
--- NOTE | 2023-10-27 17:23 | NUR ---
RING: PATIENTS [place] RING REMOVED D/T SWELLING. RING REMOVED PLACED IN SPECIMEN CUP AND GIVEN TO TO SEND HOME.
--- NOTE | 2023-10-27 17:27 | NUR ---
PT TOLERATED LAST 2 TURNS WELL; PT PREMEDICATED EACH TIME WITH FENTANYL 50MCG PER DR NORMAN RECOMMENDATIONS. PROPOFOL AT 50MCG, EPI HAS BEEN TITRATED DOWN TO 5MCG, LEVOPHED IS NOW AT 14MCG. AMIO GTT AT 0.5MG/MIN AND IS DUE TO BE STOPPED AT 1900. PT'S AT BEDSIDE. PT'S FAMILY UPDATED BY DR NORMAN TODAY. GOOD URINE OUTPUT WITH BUMEX >2L, BUMEX DID NOT SEEM TO LOWER BP PRESSORS WERE TITRATED DOWN TODAY. SATS >90% ON 70% FIO2. PT AFEBRILE TODAY.
--- NOTE | 2023-10-27 19:15 | NUR ---
ASSUMPTION OF CARE BEDSIDE REPORT GIVEN BY RN JOSÉ MIGUEL. PT SEDATED AND VENTILATED. BILAT WRIST RESTRAINTS IN PLACE. AMIODARONE TURNED OFF PER ORDERS. EPI, LEVO, PROP INFUSING SEE FLOWSHEET. IN SR, MAPS >80S. SYNCHRONOUS W CURRENT VENT SETTINGS. NO CONCERNS AT THIS TIME. SEE SHIFT ASSESSMENT FOR FURTHER DETAILS.
[2023-10-27] MEDS ORDERED: Amiodarone HCl 200 MG Tab PT SCH (21:00)
[2023-10-28] VITALS (83 sets, daily range): BP systolic 79–148; BP diastolic 50–132
[2023-10-28 04:41] LABS: BASOPHILS ABSOLUTE AUTO 0.05 K/mm3 (0.00-0.23); BASOPHILS PERCENT AUTO 1 % (0-2); EOSINOPHILS ABSOLUTE AUTO 0.14 K/mm3 (0.00-0.68); EOSINOPHILS PERCENT AUTO 1 % (0-6); Hemoglobin 14.4 g/dL (11.5-16.0); IMMATURE GRAN ABSOLUTE AUTO 0.04 K/mm3 (0.00-0.10); IMMATURE GRAN PERCENT AUTO 0 % (0-1); LYMPHOCYTES ABSOLUTE AUTO 1.24 K/mm3 (0.84-5.20); LYMPHOCYTES PERCENT AUTO 12 % (21-46); MONOCYTES ABSOLUTE AUTO 0.92 K/mm3 (0.16-1.47); MONOCYTES PERCENT AUTO 9 % (4-13); Mean Corpuscular HGB Conc 32.7 g/dL (31.5-36.5); Mean Corpuscular Volume 95 fL (80-100); Mean Platelet Volume 10.4 fL (9.1-12.4); NEUTROPHILS ABSOLUTE AUTO 7.61 K/mm3 (1.96-9.15); NEUTROPHILS PERCENT AUTO 76 % (41-73); Platelet Count 151 K/mm3 (150-400); Red Blood Cell Count 4.65 M/mm3 (3.80-5.20)
[2023-10-28 04:59] LABS: Albumin, Blood 2.4 g/dL (3.4-5.0); Albumin/Globulin Ratio 0.7 (0.8-1.8); Bilirubin, Direct 1.8 mg/dL (0.0-0.3); Bilirubin, Indirect 0.8 mg/dL (0.1-0.7); Bilirubin, Total 2.6 mg/dL (0.1-1.0); Bun/Creatinine Ratio 19.7 (12.0-20.0); Calcium, Blood 8.9 mg/dL (8.5-10.1); Creatinine, Blood 1.47 mg/dL (0.40-1.00); Globulin, Blood 3.3 g/dL (2.2-4.0); Magnesium, Blood 1.5 mg/dL (1.6-2.4); Phosphorus, Blood 3.6 mg/dL (2.5-4.9); Potassium, Blood 4.1 mmol/L (3.5-5.5); Total Protein, Blood 5.7 g/dL (6.4-8.2)
[2023-10-28] MEDS ORDERED: Magnesium Sulf 2 GM/Water 50ML 50 ML IV ONE (05:25)
--- NOTE | 2023-10-28 06:39 | NUR ---
CARDIAC HR INCREASED TO 180S, EKG DONE, IN AFLUTTER, BP STABLE MAPS REMAINS >65. DR DALY MADE AWARE. SEE NEW ORDERS/EMAR.
[2023-10-28] MEDS ORDERED: Metoprolol Tartrate 1 MG/ML 5 ML VIAL IV ONE ×2 (06:40→09:55)
--- NOTE | 2023-10-28 06:45 | NUR ---
SHIFT SUMMARY ANALYTICAL CONSULTANT: SEDATED W PROPOFOL, INCREASED TO 55 PER FLOWSHEET FOR INCREASED AGGITATION AND FIGHTING VENT. PURPOSEFUL MOVEMENT/ WITHDRAWAL TO PAINFAIL STIMULI TO ALL EXTREMITIES. NO EYE OPENING, NOT FOLLOWING COMMANDS. SOFT WRIST RESTRAINTS IN PLACE. RASS -4. FENT PRN FOR SEDATIVE ADJUNCT W BATHING/REPOSITIONING. CVS: IN SR W PACS. EPI AND LEVO TITRATED OFF, MAPS >65. EDEMA TO X4 EXTREMITIES AND SCLERA. MOTTLING TO HANDS/FEET/LEGS BILAT. DOPPLER USED ON FEET. CAP REFILL >3SEC. 0630 WENT INTO AFLUTTER HIGH 180S, ADDY AWARE, EKG DONE, METOPROLOL IV GIVEN PER EMAR, BPS REMAINED STABLE. RESP: ACPC P8 FIO2 DECREASED TO 60%. CHEST COARSE/WHEEZY. MINIMAL SECRETIONS. GI/: ADAMES HAD 5800ML OUT. OG CLAMPED. ABSENT BOWEL SOUNDS. SKIN: BOGGY HEELS/UNDERSIDE GREATER TOES. MOTTLING TO LOWER LEGS AND FEET/HANDS. BRUISE TO FOREHEAD FROM FALL. BRUISING SCATTERED TO ARMS. MAG REPLACED THIS MORNING.
--- NOTE | 2023-10-28 07:50 | NUR ---
ASSUMED CARE PATIENT LYING IN BED INTUBATED AND SEDATED ON PROPOFOL @ 55MCG/KG/MIN. VENT SETTINGS AC/PC RATE 16, PEEP 8, FIO2 60%. PATIENT RR 16, TV 350-450, SPO2 MID 90'S, ETCO2 LOW 30'S. LEVOPHED @ 2MCG/MIN, AND MAG 2 G IV INF TO RT IJ CL. EPI GTT ON SB. RIGO PIV SALINE LOCKED. HR INTERMITTENTLY IRREGULAR ON MONITOR. ADAMES PATENT AND DRAINING TO GRAVITY. NO FAMILY AT BEDSIDE. BEDSIDE SHIFT REPORT COMPLETED WITH ROSANA COLLIER.
[2023-10-28] MEDS ORDERED: dilTIAZem HCL 125 MG in Dextrose 5% 100 ML IV SCH (10:40)
[2023-10-28] MEDS ORDERED: Diltiazem HCl 5 MG / ML 5ML Vial IV ONE (10:40)
[2023-10-28] MEDS ORDERED: FentaNYL Citrate 50 MCG/ML 2 ML Injection IV PRN (10:45)
[2023-10-28] MEDS ORDERED: Mag Sulfate 1 GM/D5% 100ML 100 ML IV STA ×2 (10:58→22:49)
[2023-10-28 12:36] LABS: Base Excess Venous 5.2 mmol/L; PCO2 Venous 43.1 mmHg (38-42); pH Blood Venous 7.44 (7.34-7.37)
[2023-10-28] MEDS ORDERED: Magnesium Hydroxide Conc 10 ML UDC PT PRN (13:45)
[2023-10-28] MEDS ORDERED: Docusate Sodium 100 MG UDC PT PRN (13:45)
[2023-10-28] MEDS ORDERED: Bisacodyl 10 MG Supp PR PRN (13:45)
--- NOTE | 2023-10-28 17:42 | NUR ---
SHIFT SUMMARY PATIENT REMAINS INTUBATED AND SEDATED. PROPOFOL @ 20MCG/KG/MIN, CARDIZEM @ 15 MG/HR, AND NS TKO TO RIJ CL. REMAINS ON PC 8, RATE 16, FIO2 55% WITH SPO2 MID 90'S. MULTIPLE MUCUS PLUGS REMOVED BY RT TODAY VIA ETT SUCTION. TOP DENTURE REMOVED BY RT AND PLACED IN DENTURE CUP BY SINK. PATIENT IS ABLE TO OPEN EYES SLIGHTLY, FOLLOW COMMANDS WITH WEAK CORE MOUNTER STRENGTH, AND NOD HEAD YES/NO. BT NOW HYPOACTIVE AND VHP STARTED AT 5ML/HR @ 1430 WITH GR 45ML/HR. NO BM THIS SHIFT. ADAMES REMAINS PATENT AND DRAINING TO GRAVITY WITH A TOTAL URINE OUTPUT OF 1830 THIS SHIFT. TOES AND FINGER APPEAR MORE PINK AND WARM COMPARED TO THIS MORNING. NO OTHER CHANGES THIS SHIFT.
--- NOTE | 2023-10-28 19:00 | NUR ---
ASSUMPTION OF CARE RECEIVED INTO CARE, BEDSIDE REPORT GIVEN BY ROSANA TONG. PT RESPONDS TO VERBAL STIMULI, SEDATED W 20 PROP SEE FLOW SHEET. SOFT WRIST RESTRAINTS IN PLACE. IN AFIB RATE 120-140S, ON CARDIZEM GTT. MAPS MAINTAINING >65 OFF PRESSORS. VENTILATED, ACPC 16/8/50%, SYNCHRONOUS W CURRENT SETTINGS, VOLUMSE 400S. ADAMES IN PLACE. TF INFUSING. NO CONCERNS AT THIS TIME.
[2023-10-28] MEDS ORDERED: Lactated Ringer's 500 ML IV ONE (21:10)
--- NOTE | 2023-10-28 21:44 | NUR ---
RESPIRATORY AT 2030: DESAT TO 85%, SUSTAINED. TRIED SUCTIONING ORALLY AND IN-LINE W LAVAGE MOD AMOUNT THICK CREAMY SECRETIONS, WITH A SMALL BLACK CLUMP. SATS NOT RECOVERING. CHEST REMAINS COARSE. RT AWARE AND CAME TO BEDSIDE. SUCTIONED MULTIPLE TIMES FOR MOD AMOUNT SECRETIONS. FIO2 INCREASED TO 70%, NOW MAINTAINING SATS >92%. STAFF PHYSICAL THERAPY ASSISTANT ENTER SPUTUM ORDER. AT [address] DR LAGUNA WAS ON THE UNIT, STAFF PHYSICAL THERAPY ASSISTANT EXPLAINED WHAT HAPPENED. ORDERD OBTAINED FOR LAB WORK, CHEST XRAY, AND LR BOLUS. SEE ORDERS. DR LAGUNA STATED CAN INCREASE PEEP IF NEEDED BUT IF BECOMES HYPOTENSIVE TO DECREASE AGAIN.
[2023-10-28 21:48] LABS: Bun/Creatinine Ratio 22.6 (12.0-20.0); Calcium, Blood 8.4 mg/dL (8.5-10.1); Creatinine, Blood 1.24 mg/dL (0.40-1.00); Magnesium, Blood 1.7 mg/dL (1.6-2.4); Potassium, Blood 3.7 mmol/L (3.5-5.5)
--- NOTE | 2023-10-28 22:00 | NUR ---
AGGITATION PULLING AT RESTRAINTS, SLOUCHED DOWN TRYING TO GRAB ETT, RESTRAINTS TIGHTENED AND REPOSITIONED. RASS+2/+3. FENTANYL GIVEN PER EMAR. MACHINE TOOL BUILDER PHONED DR LAGUNA ASKING IF WE COULD START PRECEDEX. ORDERS OBTAINED SEE ORDERS/NURSE NOTIFY. FENTANYL ONLY EFFECTIVE FOR ABOUT 20MINUTES A SEDATIVE ADJUNCT. OKAY TO INCREASE PROPOFOL AND CAN START PRECEDEX IF PROPOFOL>30.
[2023-10-28] MEDS ORDERED: Lactated Ringer's 1,000 ML IV ONE (22:10)
[2023-10-29] VITALS (81 sets, daily range): BP systolic 83–124; BP diastolic 55–90
[2023-10-29] MEDS ORDERED: Midazolam HCl 1MG / ML 2ML Vial IV PRN (01:30)
[2023-10-29 04:52] LABS: Bun/Creatinine Ratio 21.6 (12.0-20.0); Calcium, Blood 8.1 mg/dL (8.5-10.1); Creatinine, Blood 1.11 mg/dL (0.40-1.00); Magnesium, Blood 1.7 mg/dL (1.6-2.4); Phosphorus, Blood 3.5 mg/dL (2.5-4.9); Potassium, Blood 3.8 mmol/L (3.5-5.5)
--- NOTE | 2023-10-29 05:43 | NUR ---
SHIFT SUMMARY: STORE COORDINATOR: RASS -4 TO +2, FENTANYL GIVEN MULTIPLE TIMES PER EMAR, ONLY EFFECTIVE A SEDATIVE ADJUNCT FOR ABOUT 20MIN. WAS ON PROPOFOL AT 20 AND INCREASED HIGH 35, NOW AT 30 PER FLOWSHEET DUE TO INCREASED RESTLESSNESS AND AGGITATION. DR LAGUNA AWARE OF THIS SEE NURSE NOTIFY/ORDERS. [place] 2MG GIVEN PER EMAR ONCE PROPOFOL OVER 30 DUE TO AGGITATION. SOFT WRIST RESTRAINTS IN PLACE. PT WOULD OPEN EYES SPONTANEOUSLY, MOVES X4 EXTREMITIES SPONTANEOUSLY, FOLLOWED COMMANDS. DOES NOT ANSWER SIMPLE YES/NO QUESTIONS. CVS: REMAINS IN AFIB HR 100-160'S, CARDIZEM AT 15 SEE FLOWSHEET. MAPS MAINTAINED >65 OFF PRESSORS. LR 1000ML BOLUS GIVEN PER EMAR. MOTTLING IMPROVING. MAG REPLACED. RESP: BEGINNING OF SHIFT PT HAD A SUSTAINED DESATURATION TO 85%, MODERATE AMOUNTS THICK SECRETIONS SUCTIONED. FIO2 INCREASED TO 70% AND WAS ABLE TO DECREASE TO 65% LATER IN THE NIGHT. DR LAGUNA WAS AWARE OF INCREASED FIO2 REQUIREMENTS AND STAT CXR WAS DONE AND CHEM8. CHEST COARSE THROUGHOUT. WEAK COUGH. REMAINS ON ACPC 16/8/65%. SPUTUM SAMPLE SENT. GI: TF INCREASED TO GOAL RATE, BS VERY HYPOACTIVE. RESIDUAL CHECKED PRIOR TO INCREASE IN RATE, RESIDUAL WAS 10ML GREEN LIQUID. NO BM. : ADAMES HAD 700ML RC URINE OUT. FULL BED BATH DONE. NO CONCERNS AT THIS TIME. VSS, SYNCHRONOUS W VENT AT THIS TIME. CPOT 0.
--- NOTE | 2023-10-29 07:27 | NUR ---
ASSUMED CARE PATIENT LYING IN BED INTUBATED AND SEDATED. PROPOFOL @ 30MCG/KG/MIN UPON ASSUMPTION OF CARE AT 0700, DECREASED TO 10 MCG/KG/MIN @ 0725 IN PREPERATION FOR SBT. RASS CURRENTLTY -4. DILTIZEM @ 15MG/HR WITH HR 100'S-110'S. BP STABLE WITH MAP GREATER THAN 65. ON PC W/ RATE 16, PEEP 8, FIO2 65% WITH SPO2 HIGH 90'S. VHP @ GR 45ML/HR WITH 30ML Q4H. ADAMES PATENT AND DRAINING TO GRAVITY. NO FAMILY AT BEDSIDE.
[2023-10-29] MEDS ORDERED: Protein Supplement 30 ML UD PT SCH (09:00)
--- NOTE | 2023-10-29 11:15 | NUR ---
Spiritual Care Visit. Pt. is awake in bed on a bipap when she welcomes my visit. Spouse, daughter, and CORTNEY are at bedside. Facilitate a short life review. Daughter and CORTNEY verbalize that they are from [facility]. Pt. displays evidence of being aware and even through the mask is engaging in coversation with family. Spouse verbalized gratitude for the spiritual care visit and welcomed this site acquisition manager to return.
[2023-10-29 11:44] LABS: Base Excess Venous 4.8 mmol/L; Bicarbonate Venous 28.1 mmol/L (24.0-30.0); PCO2 Venous 43.9 mmHg (38-42); pH Blood Venous 7.43 (7.34-7.37)
[2023-10-29] MEDS ORDERED: Artificial Tears Opth Oint 7 GM BOTHEYES PRN (12:00)
[2023-10-29] MEDS ORDERED: Artificial Tear Opth Oint 3.5 GM BOTHEYES PRN (12:30)
[2023-10-29 15:40] LABS: CK TOTAL 102 U/L (26-192); CK-BB 2 % (0-0); CK-MACRO TYPE I 0 % (0-0); CK-MACRO TYPE II 0 % (0-0); CK-MB 0 % (0-4); CK-MM 98 % (96-100)
[2023-10-29] MEDS ORDERED: LORazepam 2 MG/ML 1ML Injection IV ONE (15:55)
--- NOTE | 2023-10-29 18:27 | NUR ---
SHIFT SUMMARY PATIENT WAS EXTUBATED THIS MORNING AT 0854 TO BIPAP. TOLERATES BREAKS ON AIRVO. PASSED BEDSIDE SWALLOW EVAL, BUT WITH DINNER BEGAN COUGHING ON THIN LIQUIDS. DIET CHANGED TO THICK LIQUIDS AND SPEECH THERAPY ORDERED TO EVALUATE FURTHER. PT/OT ORDERED THIS SHIFT. CARDIZEM REMAINS @ 15MG/HR TO [facility] CL. RHYTHM REMAINS AFIB WITH RATE 100'S-160'S. PATIENT TACHYPNEIC PRIOR TO ATIVAN ADMINISTRATION. RR DOWN TO TEENS-20'S AND RESTS QUIETLY FOLLOWING 0.5MG ATIVAN IV. FAMILY AT BEDSIDE T/O SHIFT. MEDICATED FOR NAUSEA X 1. NO BM THIS SHIFT. ADAMES DRAINED A TOTAL OF 750ML OUT. NO OTHER CHANGES THIS SHIFT.
--- NOTE | 2023-10-29 20:27 | NUR ---
ASSUMPTION OF CARE/ASSESSMENT: ASSUMED CARE OF PT AT 1900; PT IS AWAKE IN BED AND A&O X 3-4. PT CANNOT RECALL REASON FOR ADMIT BUT IS ABLE TO ANSWER ALL OTHER ORIENTING QUESTIONS CORRECTLY. PT ANXIOUS AND TEARFUL, VERBALIZING THAT SHE WANTS TO GO HOME. PT C/O CHEST PAIN WITH PAIN ON INSPIRATION; PRN FENTANYL ADMINISTERED. AFIB ON MONITOR WITH HR 110-140'S, SBP 100'S AND MAP 65<. PT ON AIRVO, FIOW 50%, AND SPO2 94<; PT NOTED TO DESAT WHEN LAID FLAT TO REPOSITION AND HAS INCREASING SOB. PT TOLERATES THICKENED LIQUIDS; ABD ROUND, SOFT AND NON-TENDER; NO BM SINCE 10/22. PT HAS TEMP ADAMES IN PLACE THAT IS PATENT AND DRAINING TO GRAVITY; URINE RC. PT [place] BUT REQUIRES MODERATE ASSIST WITH REPOSITIONING. SKIN PINK-RED, WARM AND CAP REFIL < 3 SECONDS; SCATTERED BRUISING. RIJ CENTRAL LINE IN PLACE AND PATENT; INFUSING 15 MG/HR CARDIZEM GTT. BED LOWERED, CALL LIGHT IN REACH.
[2023-10-29] MEDS ORDERED: Amiodarone HCl 200 MG Tab PO SCH (21:00)
[2023-10-30] VITALS (41 sets, daily range): BP systolic 98–151; BP diastolic 44–90
[2023-10-30 04:01] LABS: Bun/Creatinine Ratio 19.9 (12.0-20.0); Calcium, Blood 8.4 mg/dL (8.5-10.1); Creatinine, Blood 0.86 mg/dL (0.40-1.00); Magnesium, Blood 1.5 mg/dL (1.6-2.4); Phosphorus, Blood 2.9 mg/dL (2.5-4.9); Potassium, Blood 3.9 mmol/L (3.5-5.5)
--- NOTE | 2023-10-30 06:13 | NUR ---
SHIFT SUMMARY: NO ACUTE CHANGES OVERNIGHT; VSS THROUGHOUT THE SHIFT. PT SWITCHING BETWEEN BIPAP AND AIRVO THROUGHOUT THE NIGHT; PT CURRENTLY ON BIPAP WITH SETTINGS 10/5 AND FIO2 50%. PT TOLERATES MASK WELL BUT WHEN SHE TAKES IT OFF SHE WILL DESAT DOWN TO LOW 80'S. PT ASPIRATION RISK AND WILL RECIEVE SPEECH EVAL TODAY. PT REMAINS A&O X 3 AND IS FOLLOWING DIRECTIONS. STRENGTH IMPROVING AND PT ABLE TO TURN AND HELP WITH REPOSITIONING. BED LOWERED, CALL LIGHT IN REACH.
--- NOTE | 2023-10-30 08:38 | NUR ---
CARE OF PT ASSUMED AT 0700, BEDSIDE REPORT TAKEN. PT INITIALLY SLEEPING W BIPAP ON, 04/25 50% BACK UP RATE 12, PT'S RATE AROUND 15. PT HAS CARDIZEM GTT 15MG/HR. PT IN A FIB W RATE 110-130, BP STABLE. SATS >90%. PLAN: CHANGE TO AIRVO TOLERATED, PT/OT, OOB TO CHAIR YOSSI, SWALLOW EVAL THIS AM. AT BEDSIDE. PT AWAKE AT 0830. PT ABLE TO ANSWER QUESTIONS APPROPRIATELY.
[2023-10-30] MEDS ORDERED: Magnesium Sulf 2 GM/Water 50ML 50 ML IV ONE (08:50)
[2023-10-30] MEDS ORDERED: Furosemide 10 MG / ML 2ML Vial IV SCH (09:00)
--- NOTE | 2023-10-30 12:11 | NUR ---
PT PLACED ON AIRVO 40L/50% AT 0900. PT AWAKE AND ALERT, SLOW TO ANSWER, OX3. PT C/O HEADACHE 01/28 THIS AM, TYLENOL GIVEN. DURING PHYSICAL THERAPY EVAL, PT C/O DIPLOPIA TO THERAPIST. BEDSIDE NEURO EXAM WNL, PT DENIES DIPLOPIA AT THAT TIME. PT DANGLED WITH PT AND MYSELF, PT THEN C/O DIPLOPIA AGAIN; RESOLVED WHEN ONE EYE COVERED. PT PLACED BACK IN BED. DR LAGUNA NOTIFIED AND PREFORMED BEDSIDE NEURO EXAM. 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 ALTHOUGH PT'S BREATHING DID NOT BECOME LABORED DURING P.T. HER SATS DID DROP TO MID 80'S AND FIO2 WAS INCREASED TO 76%. RT NOTIFIED.
[2023-10-30] MEDS ORDERED: Digoxin 0.25 MG/ML 2ML Amp IV ONE (14:00)
[2023-10-30] MEDS ORDERED: Digoxin 0.5 MG in Dextrose 5% 50 ML IV ONE (14:00)
--- NOTE | 2023-10-30 16:58 | NUR ---
PT GIVEN FULL BED BATH. OOB TO CHAIR W TWO ASSIST AND WALKER. PT YOSSI WELL. FLUTTER VALVE AND IS INSTRUCTIONS GIVEN. PT ABLE TO DEMONSTRATE AND IS YOSSI BOTH IS AND FLUTTER VALVE.
[2023-10-30] MEDS ORDERED: Mag Sulfate 1 GM/D5% 100ML 100 ML IV STA (17:32)
--- NOTE | 2023-10-30 17:51 | NUR ---
PT OOB TO CHAIR TODAY W 2 SBA AND WALKER. YOSSI CHAIR WELL. IS AND FLUTTER VALVE AT BEDSIDE. PT HAS STAYED ON AIRVO T/O SHIFT 40L/76%. SATS 95%. FENTANYL 50MCG X1 FOR CHEST PAIN/RIB PAIN AFTER COUGHING FIT; PAIN 2ND CPR/BROKEN RIBS. MAG REPLACED TODAY. DIG GIVEN, PT YOSSI WELL, HR BETWEEN 100-120. CARDIZEM GTT REMAINS AT 15MG/HR; CLARIFIED W DR LAGUNA THAT HE WANTS BOTH). PT HAD ONLY ONE EPISODE OF DIPLOPIA W BRINK THIS AM.
[2023-10-30] MEDS ORDERED: Docusate Sodium 100 MG UDC PO PRN (20:07)
[2023-10-30] MEDS ORDERED: Bisacodyl 5 MG TabEC PO PRN (20:10)
[2023-10-30] MEDS ORDERED: Amiodarone HCl 200 MG Tab PO SCH (21:00)
[2023-10-31] VITALS (22 sets, daily range): BP systolic 117–164; BP diastolic 73–127
--- NOTE | 2023-10-31 06:19 | NUR ---
SHIFT SUMMARY: NO ACUTE CHANGES OVERNIGHT, VSS THROUGHOUT THE SHIFT. PT REMAINS A&O X 4, PLEASANT AND COOPERATIVE WITH CARE. PT HAD BEEN C/O CHEST/RIB PAIN THROUGHOUT THE SHIFT AND RECIEVED PRN FENTANYL PUSHES. PT ON AIRVO FOR MAJORITY OF THE NIGHT WITH SETTINGS AT 40 L/MIN AND LING 82%; LUNGS ARE CLEAR IN UPPER LOBES AND DIM IN BASES; EXERTIONAL DYSPNEA NOTED. PT AFIB ON MONITOR WITH HR 100-110, SBP 140-150'S; CARDIZEM GTT @ 10 MG/HR. PT TOLERATING PO INTAKE WELL; ABD ROUND, SOFT AND MILDLY TENDER. ADAMES IN PLACE AND DRAINING TO GRAVITY; URINE RC AND 1L URINE OUTPUT THIS SHIFT. PIV'S PLACED TO LFA AND MARCIAL; CENTRAL LINE PULLED AND PETROLEUM DRESSING PLACED. SKIN WITH SCATTERED BRUISING AND SCABS. BED LOWERED, CALL LIGHT IN REACH, WILL REPORT OFF TO ONCOMING RN.
--- NOTE | 2023-10-31 08:59 | NUR ---
CARE OF PT ASSUMED AT 0700, BEDSIDE REPORT TAKEN. JUST PRIOR TO BEDSIDE REPORT PT C/O SEVERE PAIN TO CHEST/RIBS AFTER COUGHING, NIGHT RN ADMINISTERED FENT 50MCG IV, PT HAD GOOD RELIEF FROM PAIN. PT ALERT/AWAKE, OX3. PT TAKING SHALLOW/SPLINTING BREATHS DUE TO PAIN WHICH IMPROVED AFTER FENT. AIRVO AT 40L/76%. SATS >90%, LUNGS CLEAR T/O. PT SBA TO CHAIR W WALKER FOR BREAKFAST. PT MOVING WELL. IJ DC'D LAST NIGHT, ADAMES TO BE DC'D TODAY. CARDIZEM GTT AT 10MG/HR, DR LAGUNA IN TO CHECK ON PT. UPDATE GIVEN. CARDIZEM TO BE CHANGED TO PO, DR LAGUNA WILL REVIEW LASIX ORDER. PT IN AFIB W CONTROLLED RATE AROUND 100-110; HIGHER WITH EXERTION.
[2023-10-31 09:35] LABS: Calcium, Blood 8.5 mg/dL (8.5-10.1); Creatinine, Blood 0.86 mg/dL (0.40-1.00); Magnesium, Blood 1.6 mg/dL (1.6-2.4); Phosphorus, Blood 2.4 mg/dL (2.5-4.9); Potassium, Blood 3.9 mmol/L (3.5-5.5)
[2023-10-31] MEDS ORDERED: Furosemide 10 MG / ML 2ML Vial IV ONE (10:15)
[2023-10-31] MEDS ORDERED: OxyCODONE 5 mg/Acetamin 325 mg TABLET PO PRN (10:15)
[2023-10-31] MEDS ORDERED: dilTIAZem HCL 30 MG TAB PO SCH (12:00)
--- NOTE | 2023-10-31 12:00 | NUR ---
PT C/O SHARP PAIN TO SUBSTERNAL AREA WITH COUGH AND DEEP BREATH. PT COUGHING UP MOD AMT OF THICK DARK GODFREY SPUTUM. PAIN MANAGEMENT DISCUSSED WITH DR LAGUNA. PERCOCET GIVEN. PT STATES PAIN HAS NOT IMPROVED, C/O PAIN 02/28 . PT EATING LUNCH UP IN CHAIR AND VISITING W FAMILY MEMBERS AT THIS TIME.
--- NOTE | 2023-10-31 13:28 | NUR ---
PT GIVEN CHG BATH, SBA BACK TO BED USING WALKING. PT HAS INCREASED PAIN TO CHEST/RIBS W ACTIVITY. PT HAS SPLINTING RESP W ACTIVITY, SATS REMAIN >90%. PT USES FOLDED BATH BLANKET TO BRACE CHEST WHILE COUGHING. ROSANGELA HILL'Black, PT YOSSI WELL. CARDIZEM TO BE TITRATED OFF.
[2023-10-31] MEDS ORDERED: Magnesium Sulf 2 GM/Water 50ML 50 ML IV ONE (14:30)
[2023-10-31] MEDS ORDERED: Ibuprofen 600 MG Tab PO PRN (14:40)
[2023-10-31] MEDS ORDERED: Potassium Phosphate,Monobasic 500 MG Tablet PO SCH (15:00)
--- NOTE | 2023-10-31 15:57 | NUR ---
WHILE SITTING ON EDGE OF BED AFTER VOIDING IN COMMODE PT HAS 8 BEAT RUN OF VT. PT ASYMPTOMATIC DURING AND AFTER RUN. HEART RATE AROUND 100, BP STABLE. SATS 96% ON AIRVO. DR LAGUNA CALLED. STAT EKG AND TROPONIN ORDERED.
--- NOTE | 2023-10-31 17:23 | NUR ---
EKG REVIEWED BY DR LAGUNA. TROPONIN 8. DR ABDUL CALLED PER DR LAGUNA. IN, UPDATE GIVEN. DR ABDUL STATED HE REVIEWED THE CASE, NO NEW ORDERS FOR NOW. PT SITTING UP IN BED VISITING WITH FAMILY.
[2023-10-31 17:34] LABS: Bun/Creatinine Ratio 15.4 (12.0-20.0); Calcium, Blood 8.9 mg/dL (8.5-10.1); Creatinine, Blood 0.78 mg/dL (0.40-1.00); Magnesium, Blood 2.6 mg/dL (1.6-2.4); Phosphorus, Blood 2.3 mg/dL (2.5-4.9); Potassium, Blood 4.1 mmol/L (3.5-5.5)
--- NOTE | 2023-10-31 17:43 | NUR ---
DR LAGUNA CALLED AND UPDATED, LABS REVIEWED.
[2023-10-31] MEDS ORDERED: Potassium Phosphate,Monobasic 500 MG Tablet PO ONE (21:20)
[2023-11-01] VITALS (22 sets, daily range): BP systolic 105–150; BP diastolic 66–114
[2023-11-01] MEDS ORDERED: DiphenhydrAMINE HCL 25 MG Cap PO ONE (00:10)
[2023-11-01] MEDS ORDERED: OxyCODONE HCL 5 MG TAB PO PRN (00:10)
[2023-11-01 03:37] LABS: BASOPHILS ABSOLUTE AUTO 0.05 K/mm3 (0.00-0.23); BASOPHILS PERCENT AUTO 1 % (0-2); EOSINOPHILS ABSOLUTE AUTO 0.29 K/mm3 (0.00-0.68); EOSINOPHILS PERCENT AUTO 5 % (0-6); Hematocrit 40.8 % (33.0-51.0); Hemoglobin 13.1 g/dL (11.5-16.0); IMMATURE GRAN ABSOLUTE AUTO 0.06 K/mm3 (0.00-0.10); IMMATURE GRAN PERCENT AUTO 1 % (0-1); LYMPHOCYTES ABSOLUTE AUTO 0.87 K/mm3 (0.84-5.20); LYMPHOCYTES PERCENT AUTO 14 % (21-46); MONOCYTES PERCENT AUTO 15 % (4-13); Mean Corpuscular HGB 31.2 pg (26.0-34.0); Mean Corpuscular HGB Conc 32.1 g/dL (31.5-36.5); Mean Corpuscular Volume 97 fL (80-100); Mean Platelet Volume 9.5 fL (9.1-12.4); NEUTROPHILS ABSOLUTE AUTO 4.03 K/mm3 (1.96-9.15); NEUTROPHILS PERCENT AUTO 65 % (41-73); Platelet Count 168 K/mm3 (150-400); RDW Coefficient Variation 14.6 % (11.7-14.2); RDW Standard Deviation 51.8 fL (35.1-46.3)
[2023-11-01 03:57] LABS: Magnesium, Blood 1.8 mg/dL (1.6-2.4)
[2023-11-01 03:58] LABS: Albumin, Blood 2.3 g/dL (3.4-5.0); Albumin/Globulin Ratio 0.6 (0.8-1.8); Bilirubin, Total 1.6 mg/dL (0.1-1.0); Calcium, Blood 8.7 mg/dL (8.5-10.1); Creatinine, Blood 0.71 mg/dL (0.40-1.00); Globulin, Blood 3.6 g/dL (2.2-4.0); Phosphorus, Blood 2.8 mg/dL (2.5-4.9); Potassium, Blood 3.8 mmol/L (3.5-5.5); Total Protein, Blood 5.9 g/dL (6.4-8.2)
--- NOTE | 2023-11-01 05:58 | NUR ---
SHIFT SUMMARY: NO ACUTE CHANGE OVERNIGHT, VSS THROUGHOUT THE SHIFT. PT REMAINS A&O X 4, PLEASANT AND COOPERATIVE WITH CARE; PT ANXIOUS AT TIME AND BECOMES SOB AND TACHYPNEIC. PT CONTINUES ON AIRVO WITH SETTINGS 40 L/MIN AND FIOW 47%, SPO2 96<. PT HAS SOME EXERTIONAL DYSPNEA WITH TRANSFERS TO BEDSIDE COMMODE. PT AFIB ON MONITOR WITH HR 110 AND TOUCHES UP TO 130-150'S WHEN UP AND MOVING, SBP 130-140'S AND HAS SOME CHEST PAIN SECONDARY TO BROKEN RIBS. PT RECIEVED PRN PAIN MEDS. PT TOLERATES PO INTAKE. PT STRENGTH IMPROVING; SBA WITH WALKER FOR TRANSFERS. PT'S NIECE AT BEDSIDE THROUGHOUT THE NIGHT HAS HELPED PT'S ANXIETY. BED LOWERED, CALL LIGHT IN REACH.
--- NOTE | 2023-11-01 09:06 | NUR ---
ASSUMPTION OF CARE: RECEIVED REPORT FROM BETI WAYNE. PT ALERT AND ORIENTED, ANSWERS QUESTIONS APPROPRIATELY AND IS ABLE TO MAKE NEEDS KNOWN. PT HAS AN INTERMITTENT STUTTER NOTED WHEN TALKING. PT ON AIRVO 40L, WITH SPO2 >90%. LUNGS CLEAR/DIM T/O. CONTINUOUS JEWELSMITH IN PLACE, AFIB WITH HR 120'S. SBP 120-130'S. PIV'S PATENT AND SALINE LOCKED. TOLERATING PO INTAKE WELL. PT ENDORSES PAIN IN THE CHEST AREA RELATED TO POST CPR. MEDICATED PER EMAR AND REPOSITIONED. ABLE TO TRANSFER TO BEDSIDE COMMODE WITH ASSIST. NO BM YET. PT NIECE AT BEDSIDE. UPDATED TO PLAN OF CARE. BED LOW AND LOCKED.
[2023-11-01] MEDS ORDERED: DiphenhydrAMINE HCL 25 MG Cap PO PRN (10:40)
[2023-11-01] MEDS ORDERED: HyDROXyzine HCl 25 MG Tab PO PRN (14:00)
--- NOTE | 2023-11-01 17:53 | NUR ---
SHIFT SUMMARY: PT CONTINUES TO REMAIN ALERT AND ORIENTED T/O THE SHIFT. STILL HAS OCCASIONAL STUTTER AT TIMES. ABLE TO ANSWER QUESTIONS AND MAKE NEEDS KNOWN T/O THE SHIFT. PT ABLE TO REST OFF AND ON THIS AFTERNOON. TOLERATING PO INTAKE WELL. ABLE TO TRANSFER TO TOILET WITH ASSIST. PT CONTINUES ON AIRVO AT 40L, 47% FIO2. DENIES SOB. PT ENDORSES PAIN IN STERNAL REGION FROM BROKEN RIBS. CARDIAC MONITORING REMAINS IN PLACE, AFIB WITH HR 120'S. SBP 140'S. VOIDING MODERATE AMOUNT OF YELLOW URINE T/O THE SHIFT. NO BM THIS SHIFT. PIVS, INTACT AND SALINE LOCKED. FAMILY AT BEDSIDE OFF AND ON T/O THE SHIFT. UPDATED TO PLAN OF CARE. PT/OT IN TO SEE PT TODAY, PT PARTICIPATED WELL WITH NO COMPLAINTS. BED LOW AND LOCKED, CALL LIGHT IN REACH.
--- NOTE | 2023-11-01 21:28 | NUR ---
ASSUMPTION OF CARE BEDSIDE SHFIT REPORT RECEIVED FROM SAHARANJFT RN. PT RESTING IN BED, SLEEPING BUT AROUSABLE. PT ASNWERS QUESTIONS APPROPRIATLEY, FOLLOWS COMMANDS AND IS ABLE TO MAKE NEEDS KNOWN. PT IS COOPERATE WITH CARE, MOVES ALL EXTREMITIES EQUALLY BILATERALLY. PT COMPLAINING OF CHEST PAIN ON INSPIRATION AND WITH COUGHING R/T BROKEN RIBS, MEDICATED PER EMAR. HR 100-130'S AFIB, MAP >65. PT ON AIRVO, 40L, FIO2 43%, OXYGEN SATURATION >92%, PT COMPLAINING OF SOB WITH MOVEMENT. ABDOMEN SOFT AND NONTENDER, PT COMPLAINING OF NAUSEA, MEDICATED PER EMAR WITH GOOD EFFECT. PIV IN PLACE TO JOY SL, PIV IN PLACE TO RFA SL. BED IN LOWEST POSITIN, CALL LIGHT WITHIN REACH, CARE CONTINUES.
[2023-11-02] VITALS (10 sets, daily range): BP systolic 116–151; BP diastolic 81–98
[2023-11-02 03:28] LABS: BASOPHILS ABSOLUTE AUTO 0.04 K/mm3 (0.00-0.23); BASOPHILS PERCENT AUTO 1 % (0-2); EOSINOPHILS PERCENT AUTO 4 % (0-6); Hematocrit 36.3 % (33.0-51.0); Hemoglobin 11.4 g/dL (11.5-16.0); IMMATURE GRAN ABSOLUTE AUTO 0.07 K/mm3 (0.00-0.10); IMMATURE GRAN PERCENT AUTO 1 % (0-1); LYMPHOCYTES ABSOLUTE AUTO 1.24 K/mm3 (0.84-5.20); LYMPHOCYTES PERCENT AUTO 15 % (21-46); MONOCYTES PERCENT AUTO 14 % (4-13); Mean Corpuscular HGB 30.6 pg (26.0-34.0); Mean Corpuscular HGB Conc 31.4 g/dL (31.5-36.5); Mean Corpuscular Volume 98 fL (80-100); Mean Platelet Volume 9.9 fL (9.1-12.4); NEUTROPHILS ABSOLUTE AUTO 5.35 K/mm3 (1.96-9.15); NEUTROPHILS PERCENT AUTO 66 % (41-73); Platelet Count 184 K/mm3 (150-400); RDW Coefficient Variation 14.4 % (11.7-14.2); RDW Standard Deviation 51.8 fL (35.1-46.3); Red Blood Cell Count 3.72 M/mm3 (3.80-5.20)
[2023-11-02 03:51] LABS: Albumin, Blood 2.2 g/dL (3.4-5.0); Anion Gap 6 mmol/L (3-11); Blood Urea Nitrogen 13 mg/dL (8-24); CO2, Blood 34 mmol/L (21-32); Calcium, Blood 8.7 mg/dL (8.5-10.1); Chloride, Blood 103 mmol/L (98-108); Creatinine, Blood 0.81 mg/dL (0.40-1.00); Glomerular Filtration Rate 84 (60-); Glucose, Blood 106 mg/dL (70-99); Phosphorus, Blood 3.3 mg/dL (2.5-4.9); Potassium, Blood 4.1 mmol/L (3.5-5.5); Sodium, Blood 139 mmol/L (136-145)
--- NOTE | 2023-11-02 05:43 | NUR ---
SHIFT SUMMARY NO ACUTE CHANGES THIS SHIFT. PT REMAINS ALERT AND ORIETNED X4, ASNWERS QUESTIONS APPROPRIATELY, FOLLOW DIRECTIONS AND IS ABLE TO MAKE NEEDS KNOWN. PT MOVES ALL EXTREMITIES EQUALLY BILATERALLY. HR 110-150'S AFIB, SBP 120-150'S, MAP >65. PT COMPLAINING OF MIDSTERNAL PAIN ON INPIRATION AND WITH COUGHING R/T BROKEN RIBS, MEDICATED PER EMAR. PT ON AIRVO, 40L FIO2 43%, OXYGEN SATURATION >92%. PT HAS MODERATE AMOUNT OF THICK GODFREY/WHITE SECRETIONS, SELF SUCTIONS. PT TACHYPNEIC AND SOB WITH EXERTION. ABDOMEN SOFT, BOWEL TONES ACTIVE IN ALL FOUR QUADRANTS. PT UP TO BEDSIDE TOILET WITH 1 PERSON ASSIST AND WALKER. PIV IN PLACE TO JOY AND RFA SL. BED IN LOWEST POSITION, CALL LIGHT WITHIN REACH, CARE CONTINUES.
--- NOTE | 2023-11-02 07:00 | NUR ---
ASSUME CARE: I have assumed care of this patient.
[2023-11-02] MEDS ORDERED: Docusate Sodium/Senna 1 Tab PO SCH (12:30)
[2023-11-02] MEDS ORDERED: Bisacodyl 10 MG Supp PR ONE (13:45)
[2023-11-02] MEDS ORDERED: Metoprolol Tartrate 1 MG/ML 5 ML VIAL IV PRN (14:00)
--- NOTE | 2023-11-02 14:01 | NUR ---
PROVIDER UPDATE: Dr Marcelo called and notified of pt's persistant tachycardia. See new orders.
--- NOTE | 2023-11-02 14:31 | NUR ---
SHIFT/TRANSFER SUMMARY: Pt transferred to PCU 9 from ICU 12 at 2:32. Pt has received several bowel medications for constipation today. Her last BM was 4/3. She reports abdominal discomfort and bloating. This was discussed with Dr Marcelo at bedside. She received one dose of IV metoprolol for tachycardia with good effect. Though painful, pt able to expectorate via cough while splinting with pillow. She has been up to the toilet several times attempting to have a BM. Pt up in chair for most of morning. She has been encouraged to drink water to assist with constipation. Spouse and pj at bedside for support.
--- NOTE | 2023-11-02 16:57 | NUR ---
ASSUME CARE; PT TRANSFERRED FROM ICU 12 REPORT RECEIVED FROM LORETO WAYNE. AT THE BEDSIDE DURING TRANSFER. PT ON 35L 55% FIO2 VIA AIRVIO DURING TRANSFER ABLE TO STAND AND TRANSFER TO BED VIA WHEELCHAIR MINIMAL ASSIST. SUCTION SET UP AT THE BEDSIDE PER PT'S REQUESTS PT COUGHING UP YELLOW THICK SPUTUM. VITALS HRR AFIB RVR 140-150'S PER REPORT PT WAS GVEN METOPROLOL IV PUSH AT 1400 WITH NO RESPONSE. SBP 115-120'S, MADE AWARE PT WAS STARTED ON CARDIZEM GTT AT 10MG/HR, RATE STILL RANGING ON THE 120'S, PT NOW RESTING IN BED, CALL LIGHTS IN REACH BED ALARM ON FOR SAFETY, WILL REPORT TO ONCOMING SHIFT
[2023-11-02] MEDS ORDERED: Furosemide 10 MG/ML 4ML Vial IV SCH (19:00)
[2023-11-03] VITALS (48 sets, daily range): BP systolic 106–139; BP diastolic 61–90
[2023-11-03 00:52] LABS: PCO2 Arterial 50.1 mmHg (35-45); pH Blood Arterial 7.45 (7.35-7.45)
[2023-11-03 00:54] LABS: PO2 Arterial 37.7 mmHg (80-100)
[2023-11-03 01:41] LABS: BASOPHILS ABSOLUTE AUTO 0.07 K/mm3 (0.00-0.23); BASOPHILS PERCENT AUTO 1 % (0-2); EOSINOPHILS ABSOLUTE AUTO 0.13 K/mm3 (0.00-0.68); EOSINOPHILS PERCENT AUTO 1 % (0-6); Hematocrit 35.2 % (33.0-51.0); Hemoglobin 11.1 g/dL (11.5-16.0); IMMATURE GRAN ABSOLUTE AUTO 0.15 K/mm3 (0.00-0.10); IMMATURE GRAN PERCENT AUTO 1 % (0-1); LYMPHOCYTES ABSOLUTE AUTO 1.69 K/mm3 (0.84-5.20); LYMPHOCYTES PERCENT AUTO 11 % (21-46); MONOCYTES ABSOLUTE AUTO 1.63 K/mm3 (0.16-1.47); MONOCYTES PERCENT AUTO 11 % (4-13); Mean Corpuscular HGB 30.2 pg (26.0-34.0); Mean Corpuscular HGB Conc 31.5 g/dL (31.5-36.5); Mean Corpuscular Volume 96 fL (80-100); Mean Platelet Volume 9.8 fL (9.1-12.4); NEUTROPHILS ABSOLUTE AUTO 11.56 K/mm3 (1.96-9.15); NEUTROPHILS PERCENT AUTO 76 % (41-73); Platelet Count 227 K/mm3 (150-400); RDW Coefficient Variation 14.3 % (11.7-14.2); RDW Standard Deviation 49.9 fL (35.1-46.3); Red Blood Cell Count 3.68 M/mm3 (3.80-5.20); White Blood Cell Count 15.23 K/mm3 (4.00-11.30)
[2023-11-03 01:59] LABS: Albumin, Blood 2.5 g/dL (3.4-5.0); Albumin/Globulin Ratio 0.6 (0.8-1.8); Bilirubin, Total 1.7 mg/dL (0.1-1.0); Bun/Creatinine Ratio 18.8 (12.0-20.0); Creatinine, Blood 0.8 mg/dL (0.40-1.00); Magnesium, Blood 1.4 mg/dL (1.6-2.4); Potassium, Blood 3.7 mmol/L (3.5-5.5); Total Protein, Blood 6.5 g/dL (6.4-8.2)
[2023-11-03] MEDS ORDERED: Sodium Chloride For Inhalation 7% 4 ML VIAL.NEB INH ONE (02:00)
[2023-11-03] MEDS ORDERED: Ipratropium/Albuterol SulF 2.5-0.5MG/3 ML Amp INH SCH (02:00)
[2023-11-03] MEDS ORDERED: Acetylcysteine 200 MG/ML 4ML Vial INH SCH (02:00)
--- NOTE | 2023-11-03 02:35 | NUR ---
ASSUMPTION OF CARE PT TRANSFERRED TO ICU FROM PCU VIA PCU BED, TRANSITIONED TO ICU BED VIA SLIDER SHEET. PT ANSWERS QUESTIONS APPROPRIATELY, FOLLOWS DIRECTION AND IS ABLE TO MAKE NEEDS KNOWN. PT IS WEAK BUT MOVES EXTREMITIES EQUALLY BIALTERALLY. HR 120-160'S AFIB, MAP >65, DILTIAZEM DRIP INFUISNG AT 15MG/HR. PT ON BIPAP 12/8 100%, OXYGEN SATURATION >95%, PT DENIES SOB AT TIME OF ASSESSMENT. WHEEZES NOTED TO RIGHT LUNG, DIMINISHED. PT STATES THAT SHE HAS PAIN DUIRNG INSPIRATION AND WITH COUGHING R/T BROKEN RIBS. ABDOMEN SOFT NONTENDER, BOWEL TONES ACTIVE IN ALL FOUR QUADRANTS. PUREWICK IN PLACE DUE TO PT HAVING PAIN WITH AMBULATION R/T BROKEN RIBS, DRAINING YELLOW URINE. PIV IN PLACE TO JOY SL, PIV IN PLACE TO RFA INFUSING DILTIAZEM. MOTTLING NOTED TO BLE FROM THE MID THIGH DOWN TO HER FEET. PURPLE DISCOLORATION NOTED TO PT TOES, COOL TO THE TOUCH, PULSES STRONG THROUGHOUT ALL EXTREMITIES. PT S/O AT THE BEDSIDE. BED IN LOWEST POSITION, CALL LIGHT WITHIN REACH, CARE CONTINUES.
--- NOTE | 2023-11-03 03:35 | NUR ---
0030 Called into room by patient for sudden onset difficulty breathing. Pt sitting in tripod position and WOB markedly increased from prior with tachypnea. Pt reports "just feels like someone needs to press on my chest". O2 Sat dropping to 60s, NRB mask placed over current AirVo after setting increased by RT who immediately came to bedside. 0045 Call to MD to report change in pt condition, new orders recieved. 0100 RT remains at bedside, CXR obtained. Repeated call to MD to report CXR completed. 0110 MD at bedside to eval pt. Pulm has been consulted, and pt will be transferring to ICU for further management. 0135 transferred via bed to ICU room 08 with this nurse and receiving nurse in attandence. Full bedside report given and all questions answered. has arrived to bedside prior to transfer and has agreed to stay in room until pt ready for visit in ICU. Staff will wheelchair him over when ready.
[2023-11-03 05:11] LABS: Phosphorus, Blood 2.9 mg/dL (2.5-4.9)
[2023-11-03] MEDS ORDERED: Magnesium Sulf 2 GM/Water 50ML 50 ML IV ONE (05:30)
--- NOTE | 2023-11-03 05:33 | NUR ---
SHIFT SUMMARY PT SLEEPING BUT AROUSABLE, ORIENTED X4. PT ANSWERS QUESTIONS, FOLLOWS DIRECTIONS AND IS ABLE TO MAKE NEEDS KNOWN. PT WEAK BUT MOVES ALL EXTREMITIES EQUALLY BILATERALLY. HR 110-150'S AFIB, MAP >65. DILTIAZEM DRIP INFUSING AT 15MG/HR. AIRVO IN PLACE 40L 58%, OXYGEN SATURATION >92%. PT DENIES SOB AT REST. PT COMPLAINS OF PAIN IN HER CHEST/RIBS DURING INSPIRATION AND WITH COUGHING R/T FRACTURED RIBS, MEDICATED PER EMAR. ABDOMEN SOFT, BOWEL TONES ACTIVE IN ALL FOUR QUADRANTS, PT DENIES N/V. PUREWICK AND ATTENDS IN PLACE. PIV IN PLACE TO JOY INFUSING NS TKO, PIV IN PLACE TO RFA INFUSING DILTIAZEM. S/O AT THE BEDSIDE. BED IN LOWEST POSITION, CALL LIGHT WITHIN REACH, CARE CONTINUES.
--- NOTE | 2023-11-03 08:00 | NUR ---
AM NOTE: PATIENT ALERT AND ORIENTED X4. DISCUSSES WITH THIS RN HOW SHE HAD A "ROUGH" NIGHT AND IS TIRED THIS MORNING. PERRLA. MOVING ALL EXTREMITIES. VERY PAINFUL IN RIBS AND DOES NOT TOLERATE LAYING FLAT. MEDICATED PER EMAR FOR PAIN. Q2 TURNING AND NEEDED. PATIENT USING CALL LIGHT AND MAKING NEEDS KNOWN. TELE SHOWING AFIB WITH HR 100-120'S AT REST AND UP TO 140'S WITH COUGHING, MOVEMENT AND PAIN. SBP 110-120'S. CARDIZEM GTT CONTINUES AT 15MG/MIN. PPP. MINIMAL EDEMA TO BILATERAL LOWER EXTREMITIES. SC LOVENOX GIVEN THIS AM. ON AIRVO AT 40L 60% SATING 90-92%. RT IN TO GIVE BREATHING TREATMENTS AND PERCUSSION TO RIGHT SIDE THIS AM. RIGHT UPPER AND MID LOBE DIMINISHED WITH EXPIRATORY WHEEZE. LEFT UPPER LOBE CLEAR AND DIM IN BASE. PATIENT COUGHING WITH MINIMAL GODFREY SECRETIONS, USING SUCTION IND. PATIENT ALSO USING IS AND FLUTTER VALVE THROUGHOUT MORNING. BIPAP ON STANDBY. CHEST XRAY THIS AFTERNOON. PATIENT DESATS TO MID 80'S WITH MOVEMENTS AND COUGHING. BOWEL TONES PRESENT IN ALL 4 QUADRANTS. DENIES ABDOMINAL PAIN WITH PALPATION. DENIES N/V. TOLERATING PO INTAKE. PUREWICK IN PLACE DUE TO RESPIRATORY STATUS. ATTENDS IN PLACE. DRINKING WATER. SKIN OVERALL CLEAN AND DRY. SCATTERED BRUISING TO ARMS AND ABDOMIN. SCAB CLINICAL QUALITY MANAGER ON RIGHT KNEE. VERY MINIMAL MOTTLING TO LOWER THIGH, PER PATIENT IT HAS IMPROVED. AT BEDSIDE THIS AM AND UPDATED. PATIENT SITTING UP IN BED AT THIS TIME WATCHING TV, DENIES NEEDS.
--- NOTE | 2023-11-03 12:12 | NUR ---
CHEST XRAY COMPLETED THIS AFTERNOON. PATIENT VERY TIRED AND REQUESTING TO NAP. INTERMIT NAUSEA WITH LUNCH, REFUSED ZOFRAN. USING FLUTTER VALVE AND IS THROUGHOUT MORNING. CARDIZEM TITRATED DOWN TO 10MG/MIN, SEE FLOWSHEET. HR 100-110'S AT REST. REMAINS ON AIRVO AT 40L AND 60% SATING 94% AT THIS TIME.
[2023-11-03] MEDS ORDERED: Morphine Sulfate 4 MG/1 ML Injection IV PRN (13:10)
--- NOTE | 2023-11-03 13:15 | NUR ---
THIS RN CONNECTED WITH DR. BLANCHARD TO DISCUSS PLAN. ORDERS FOR CT OF CHEST WITH CONTRAST WELL IV MORPHINE 4MG Q4 NEEDED FOR PAIN. ORDERS IN PLACE. NO CHANGES TO CARDIAC MEDICATIONS AT THIS TIME. CARDIZEM GTT CONTINUES. RT IN ROOM AT THIS TIME GIVING BREATHING TREATMENT AND PERCUSSION. PATIENT REMAINS ALERT AND ORIENTED.
--- NOTE | 2023-11-03 16:08 | NUR ---
PATIENT TO CT WITH THIS RN. ON OXYMIZER AT 15L DURING TRANSFER AND SATING MID 90'S. MEDICATED FOR PAIN PRIOR TO CT. PATIENT TOLERATED CT WELL. BACK TO ROOM AND BED BATH GIVEN. RADIOLOGIST PLACED CALL TO THIS RN TO DISCUSS RESULTS. CALL PLACED TO DR. BLANCHARD TO UPDATE ON CT. DR. BLANCHARD TO BEDSIDE AND REVIEWED RESULTS WITH PATIENT AND FAMILY AT BEDSIDE. ORDERS FOR THIS RN TO DC SC LOVENOX AND LAB DRAW FOR H&H NOW. ORDERS IN PLACE. FRENCH PROFESSOR UPDATED. FAMILY AT BEDSIDE. PATIENT VITALS REMAIN STABLE. CARDIZEM GTT CONTINUES AT 10 AT THIS TIME. PATIENT DENIES CURRENT PAIN.
[2023-11-03 16:38] LABS: Hemoglobin 8.4 g/dL (11.5-16.0)
--- NOTE | 2023-11-03 16:51 | NUR ---
H&H RESULTS CALLED INTO DR. BLANCHARD TO UPDATE. NO NEW ORDERS FOR THIS RN TO PLACE. DR. BLANCHARD REQUESTED TO RECHECK LABS IN MORNING. ORDERS ALREADY IN PLACE FOR AM LABS BY DR. BLANCHARD.
--- NOTE | 2023-11-03 18:46 | NUR ---
SHIFT SUMMARY: PATIENT REMAINS ALERT AND ORIENTED. MULTIPLE FAMILY MEMBERS IN TO VISIT THIS SHIFT. INTERMIT STERNAL/RIB PAIN THAT IS DESCRIBED "SORENESS". PATIENT REMAINS IN AFIB WITH HR 100-110'S. CARDIZEM GTT AT 10. SBP 120'S. PPP. MOTTLING TO LOWER THIGHS AND BILATERAL LOWER EXTREMITIES. REMAINS ON AIRVO AT 40L AND 60% SATING 90-94%. RESPIRATORY IN TO GIVE BREATHING TREATMENTS AND PREFORM PRECUSSION. PATIENT USING IS AND FLUTTER THROUGHOUT SHIFT. H&H REDRAW AT 2200. PATIENT REMOVED SCAB ON RIGHT KNEE, CLEANED AND DRESSING APPLIED. CALL LIGHT IN REACH. DENIES NEEDS AT THIS TIME. BED BATH GIVEN TODAY.
--- NOTE | 2023-11-03 19:30 | NUR ---
ASSUMPTION OF CARE BEDSIDE SHIFT REPORT RECEIVED FROM DAYSHIFT RN. PT RESTING IN BED, SLEEPING BUT AORUSABLE, ORIENTED X4. PT ANSWERS QUESTIONS APPROPRIATELY, FOLLOW DIRECTION AND IS ABLE TO MAKE NEEDS KNOWN. HR 90-110'S AFIB, MAP >65. DILTIAZEM INFUSING AT 10MG/HR. PT ON AIRVO 40L 60%, OXYGEN SATURATION >92%. PT COMPLAINING OF CHEST/RIB PAIN WITH INSPIRATION AND COUGHING R/T FRACTURED RIBS. MEDICATED PER EMAR. PT HAS SOB WITH EXERTION, DENIES SOB WITH REST. PT HAS SMALL AMOUNT OF THICK GODFREY SECRETIONS, SELF SUCTIONS. ABDOMEN ROUND, BOWEL TONES ACTIVE IN ALL FOUR QUADRANTS, PT DENIES N/V. PUREWICK IN PLACE DRAINING YELLOW URINE. PIV IN PLACE TO JOY AND RFA. BED IN LOWEST POSITION, CALL LIGHT WITHIN REACH, CARE CONTINUES.
[2023-11-03 22:17] LABS: Hematocrit 25.4 % (33.0-51.0); Hemoglobin 8.2 g/dL (11.5-16.0)
[2023-11-04] VITALS (44 sets, daily range): BP systolic 105–153; BP diastolic 58–136
[2023-11-04] MEDS ORDERED: HyDROXyzine HCl 25 MG Tab PO PRN (00:50)
[2023-11-04 04:05] LABS: BASOPHILS ABSOLUTE AUTO 0.05 K/mm3 (0.00-0.23); BASOPHILS PERCENT AUTO 0 % (0-2); EOSINOPHILS ABSOLUTE AUTO 0.25 K/mm3 (0.00-0.68); EOSINOPHILS PERCENT AUTO 2 % (0-6); Hematocrit 25.4 % (33.0-51.0); Hemoglobin 8.2 g/dL (11.5-16.0); IMMATURE GRAN ABSOLUTE AUTO 0.21 K/mm3 (0.00-0.10); IMMATURE GRAN PERCENT AUTO 1 % (0-1); LYMPHOCYTES ABSOLUTE AUTO 0.95 K/mm3 (0.84-5.20); LYMPHOCYTES PERCENT AUTO 6 % (21-46); MONOCYTES ABSOLUTE AUTO 1.49 K/mm3 (0.16-1.47); MONOCYTES PERCENT AUTO 9 % (4-13); Mean Corpuscular HGB 30.3 pg (26.0-34.0); Mean Corpuscular HGB Conc 32.3 g/dL (31.5-36.5); Mean Corpuscular Volume 94 fL (80-100); Mean Platelet Volume 9.8 fL (9.1-12.4); NEUTROPHILS ABSOLUTE AUTO 13.07 K/mm3 (1.96-9.15); NEUTROPHILS PERCENT AUTO 82 % (41-73); Platelet Count 247 K/mm3 (150-400); RDW Coefficient Variation 14.6 % (11.7-14.2); RDW Standard Deviation 50.1 fL (35.1-46.3); Red Blood Cell Count 2.71 M/mm3 (3.80-5.20); White Blood Cell Count 16.02 K/mm3 (4.00-11.30)
[2023-11-04 04:20] LABS: Albumin, Blood 2.2 g/dL (3.4-5.0); Anion Gap 9 mmol/L (3-11); Blood Urea Nitrogen 12 mg/dL (8-24); Bun/Creatinine Ratio 16.7 (12.0-20.0); CO2, Blood 34 mmol/L (21-32); Calcium, Blood 8.5 mg/dL (8.5-10.1); Chloride, Blood 94 mmol/L (98-108); Creatinine, Blood 0.72 mg/dL (0.40-1.00); Glomerular Filtration Rate 97 (60-); Glucose, Blood 125 mg/dL (70-99); Phosphorus, Blood 2.7 mg/dL (2.5-4.9); Potassium, Blood 3.9 mmol/L (3.5-5.5); Sodium, Blood 133 mmol/L (136-145)
[2023-11-04 04:38] LABS: Magnesium, Blood 1.7 mg/dL (1.6-2.4)
--- NOTE | 2023-11-04 06:12 | NUR ---
SHIFT SUMMARY NO ACUTE CHANGES THIS SHIFT. PT CONTINUES TO REST IN BED. SLEEPING BUT AROUSABLE. PT ANSWERS QUESTIONS APPROPRIATELY, FOLLOWS COMMANDS AND IS ABLE TO MAKE NEEDS KNOWN. PT MOVES ALL EXTREMITIES EQUALLY BIALTERALLY. PT HAS COMPLAINED OF PAIN MULTIPLE TIMES THROUGHOUT THIS SHIFT, MEDICATED PER EMAR. PT ANXIOUS AT TIMES. HR 90-120'S AFIB, MAP >65. DILTIAZEM INFUSING AT 10MLS/HR. PT CURRENTLY ON AIRVO 40L 60%, OXYGEN SATURATION >92%. BOWEL TONES ACTIVE IN ALL FOUR QUADRANTS, DENIES N/V. PUREWICK IN PLACE DRIANING YELLOW URINE. PIV IN PLACE TO RAC SL, PIV IN PLACE TO RFA INFUSING DILTIAZEM. BED IN LOWEST POSITION, CALL LIGHT WITHIN REACH, CARE CONTINUES.
--- NOTE | 2023-11-04 07:30 | NUR ---
ASSUMED CARE: PT SITTING UP IN BED. AIRVO IN PLACE AT 40L AND 60% FIO2. RT AT BEDSIDE GIVING BREATHING TREATMENT. AFIB AT 105 AND CARDIZEM GTT IS AT 10MG/HR. ASSISTED WITH DENTURES. NO ACUTE NEEDS OR CONCERNS AT THIS TIME.
--- NOTE | 2023-11-04 10:09 | NUR ---
DR ASKEW CAME TO BEDSIDE AND DISCUSSED PT'S CASE WITH PT AND THIS RN. WISHES FOR PT TO REMAIN ICU STATUS FOR TODAY
--- NOTE | 2023-11-04 18:11 | NUR ---
SHIFT SUMMARY: PT REMAINS ON AIRVO AT 40L, 65% FIO2 AND CARDIZEM GTT AT 10MG/HR WITH HR AFIB AT 105. WORKED WITH THERAPY TODAY AND SLEPT THIS AFTERNOON. VISITORS CAME TO BEDSIDE WELL. DENIES NEEDS OR CONCERNS AT THIS TIME.
--- NOTE | 2023-11-04 21:10 | NUR ---
ASSUMPTION OF CARE BEDSIDE SHIFT REPORT RECEIVED FROM DAYSHIFT RN. PT RESTING IN BED ALERT AND ORIENTED X4. PT ANSWERS QUESTIONS APPROPRIATELY, FOLLOWS DIRECTION WHEN PROMPTED AND IS ABLE TO MAKE NEEDS KNOWN. PT COOPERATIVE WITH CARE MOVES ALL EXTREMITIES EQUALLY BILATERALL. PT ANXIOUS. HR 90-110'S AFIB, MAP >65. CARDIZEM INFUSING AT 10MG/HR. PT ON AIRVO 40L 64%, OXYGEN SATURATION >92%. PT COMPLAINING OF PAIN IN HER RIBS WITH INSPIRATION AND WITH COUGHING R/T FRACTURED RIBS/STERNUM, MEDICATED PER EMAR. ABDOMEN ROUND AND FIRM, BOWEL TONES HYPOACTIVE BUT PRESENT IN ALL FOUR QUADRANTS. PUREWICK AND ATTENDS IN [place] DRAINING YELLOW URINE. PIV IN PLACE TO JOY SL. PIV IN PLACE TO RFA INFUSING DILTIAZEM. BED IN LOWEST POSITION, CALL LIGHT WITHIN REACH, CARE CONTINUES.
[2023-11-05] VITALS (26 sets, daily range): BP systolic 109–152; BP diastolic 65–109
[2023-11-05 04:29] LABS: BASOPHILS ABSOLUTE AUTO 0.06 K/mm3 (0.00-0.23); BASOPHILS PERCENT AUTO 0 % (0-2); EOSINOPHILS ABSOLUTE AUTO 0.17 K/mm3 (0.00-0.68); EOSINOPHILS PERCENT AUTO 1 % (0-6); Hematocrit 25.8 % (33.0-51.0); Hemoglobin 8.6 g/dL (11.5-16.0); IMMATURE GRAN ABSOLUTE AUTO 0.28 K/mm3 (0.00-0.10); IMMATURE GRAN PERCENT AUTO 2 % (0-1); LYMPHOCYTES ABSOLUTE AUTO 0.99 K/mm3 (0.84-5.20); LYMPHOCYTES PERCENT AUTO 6 % (21-46); MONOCYTES PERCENT AUTO 12 % (4-13); Mean Corpuscular HGB 31.2 pg (26.0-34.0); Mean Corpuscular HGB Conc 33.3 g/dL (31.5-36.5); Mean Corpuscular Volume 94 fL (80-100); Mean Platelet Volume 9.7 fL (9.1-12.4); NEUTROPHILS ABSOLUTE AUTO 12.08 K/mm3 (1.96-9.15); NEUTROPHILS PERCENT AUTO 79 % (41-73); Platelet Count 364 K/mm3 (150-400); RDW Coefficient Variation 14.9 % (11.7-14.2); RDW Standard Deviation 50.3 fL (35.1-46.3); Red Blood Cell Count 2.76 M/mm3 (3.80-5.20); White Blood Cell Count 15.38 K/mm3 (4.00-11.30)
[2023-11-05 04:54] LABS: Albumin, Blood 2.2 g/dL (3.4-5.0); Albumin/Globulin Ratio 0.6 (0.8-1.8); Bilirubin, Total 1.5 mg/dL (0.1-1.0); Bun/Creatinine Ratio 16.3 (12.0-20.0); Calcium, Blood 8.7 mg/dL (8.5-10.1); Creatinine, Blood 0.73 mg/dL (0.40-1.00); Potassium, Blood 4.1 mmol/L (3.5-5.5); Total Protein, Blood 6.2 g/dL (6.4-8.2)
--- NOTE | 2023-11-05 06:31 | NUR ---
SHIFT SUMMARY NO ACUTE CHANGES THIS SHIFT. PT CONTINUES TO REST IN BED, ALERT AND ORIENTED X4. PT ANSWERS QUESTIONS APPROPRIATELY, FOLLOW DIRECTION AND IS ABLE TO MAKE NEEDS KNOWN, MOVES ALL EXTREMITIES EQUALLY BILATERALLY. PT ANXIOUS AT TIMES, VERY PAINFUL IN HER CHEST, RIBS, AND ABDOMEN, MOANING OUT IN PAIN, UNABLE TO DESCRIBE THE PAIN, MEDICATED PER EMAR. HR 90-120'S, MAP >65, DILTIAZEM INFUISNG AT 10MG/HR. PT ON AIRVO 40L 46%, OXYGEN SATURATION >92%. ABDOMEN ROUND, BOWEL TONES ACTIVE IN ALL FOUR QUADRANTS. PUREWICK AND ATTENDS IN PLACE PATENT DRAINING YELLOW URINE. PIV IN PLACE TO RAC SL. PIV IN PLACE TO RFA INFUSING DILTIAZEM. BED IN LOWEST POSITION, CALL LIGHT WITHIN REACH, CARE CONTINUES.
--- NOTE | 2023-11-05 07:36 | NUR ---
Assumed care: Patient awake, alert, oriented to person, place, situation. Patient holding on to blanket and pillow to chest. Able to cough but weak. Patient has diminished lung sounds bilat bases, abd distended, taut, and she complains of discomfort. Patient encouraged to get out of bed for BSC today. She is also encouraged to take deep breaths to help airate her lungs. Patient has 2 piv's one with cardizem gtt going at 10mg/hr. Patient IAN COLEMAN strong with fextion and extension. SCD compressions on bilat LE she would like to use her home ones since our make her legs sweat. Purwick in place currently. Skin has scattered bruising T/O and moddling blochy coloring to knees bilat. Patient on airvo currently, RT at bedside giving breathing tx. AFEBRILE 97.1 at this time Pulse 90-105 AFIB rhythm, bp stable currently at 125/ 81 MAP 95, oxygenation at 94% RR 22.
[2023-11-05] MEDS ORDERED: Metoprolol Succinate 50 MG TABCR PO SCH (09:00)
[2023-11-05] MEDS ORDERED: Spironolactone 25 MG Tab PO SCH (10:00)
--- NOTE | 2023-11-05 11:06 | NUR ---
UPDATES PT UP TO BSC AND UP TO CHAIR TWICE THIS AM. SHE COUGHS AND IT HURTS HER CHEST AND SHE CLUTCHES HER PILLOW TO HER CHEST. SHE IS MOVING UP THICK WHITE SCRETIONS HOWEVER. SHE IS VOIDING IN THE BSC HOWEVER NO BM OF YET, BOWEL MEDS GIVEN. CAME TO BEDSIDE AND ASSEST PT AND SO DID OCCUPATIONAL THERAPY. PT ON ON 10L HIGH LOW NC. OXYGEANTION 92%-93%. FAMILY IN TO SEE PT THIS AM WELL.
--- NOTE | 2023-11-05 11:11 | NUR ---
Spiritual Care Attempted. Pt. is sitting up in a chair and intiually welcomes my visit. Began to facilitated a life review when Pt. had other [id number] visitors arrive. This undercollar baster chose to step out of the spiritual care visit. Pt. verbalized a welcome for [facility] undercollar baster to return at a later time.
--- NOTE | 2023-11-05 15:29 | NUR ---
UPDATE PT AWAKE TALKING WITH FAMILY FROM [id number]. PT FOCUS IS TO HAVE A BM HOWEVER AFTER BEING ON THE TOILET FOR ALMOST 1 HR SHE DID NOT HAVE A BM YET. SHE IS EVEN DRINKING PRUNE JUICE. SHE IS VOIDING ON THE COMMODE THOUGH. SHE IS ON NC AT 6L UP TO 8L D/T OXYGENATION DOWN TO 83% WHILE ON THE PHONE WITH [employer]. THEY WERE WANTING HER MEDICATION LIST SHE IS CURRENTLY ON FOR DISCHARGE DISABILITY BENEFITS. THIS RN INTERVENED AND DID NOT THINK IT IS THE BEST TIME FOR THAT SINCE HER DC TREATMENT PLAN IS NOT COMPLETED YET AND MAY CHANGE ALONG WITH THE FACT THAT SHE WAS DROPPING HER OXYGENATION BECOMING TACHYPNIC WHILE TALKING WITH THEM. REPOSITIONED PT AND LETTING HER REST AT THIS TIME.
--- NOTE | 2023-11-05 16:15 | NUR ---
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 RN FROM PCU CAME TO GET REPORT IN ICU. PT IS AWARE OF THE TRANSFER. NO ACUTE CHANGES AT THIS TIME.
--- NOTE | 2023-11-05 17:04 | NUR ---
MET WITH SHERI TO DISCUSS HEALTH MANAGMENT AND CODE STATUS. RELAYED THE IMPORTANCE OF ABSTAINING FROM SUBSTANCE USE. EXPRESSED CONCERN ABOUT THE IMPACT OF USE ON HER HEART AND CONCERNS OF HER HAVING ANOTHER EPISODE WHERE SHE WILL NEED TO BE CODED. SHE EXPRESSED UNDERSTANDING OF THE IMPORTANCE OF THIS. SHE RELAYED CONCERNS ABOUT HER FINANCIAL SITUATION. VISIT ENDED WHEN SHE GOT A PHONE CALL.
--- NOTE | 2023-11-05 17:33 | NUR ---
PT ARRIVES FROM ICU 8 TO PCU. SHE COMPLAINS THAT "NO ONE HAS ADDRESSED THAT I HAVE NOT POOPED IN 11 DAYS" WHEN ASKED ABOUT FLUID INTAKE AND MOVING AROUND SHE REPORTS THAT SHE HAS BEEN RELUCTANT TO MOVE AROUND DUE TO RIB AND STERNUM FX, SHE IS SHOWN HOW TO SPLINT CHEST WHEN GETTING UP AND COUGHING SHE APPEARS RELUCTANT TO DO SO.
[2023-11-05] MEDS ORDERED: Furosemide 10 MG/ML 4ML Vial IV ONE (22:20)
--- NOTE | 2023-11-05 22:21 | NUR ---
ASSUMPTION OF CARE AFTER RECEIVING REPORT FROM WILLIAM RN, THIS RN ASSUMED CARE AT APPROX 1915. PATIENT AWAKE, ALERT AND ORIENTED X4. ABLE TO MOVE ALL EXTREMITIES WITH GENERALIZED WEAKNESS T/O. ABLE TO STAND AND TRANSFER FROM HOSPITAL BED TO [facility] FOR ABD CT THIS EVENING. TELEMETRY SHOWING AFIB 100s-110s. BP STABLE. REPORTS CHEST PAIN RELATED TO STERNAL FXs. CARDIZEM GTT INFUSING AT 10MG/HR. MOTTLING TO BLE. MD SCHWAB AT BEDSIDE FOR CARDIOLOGY CONSULT. FAMILY AT BEDSIDE DURING CONSULT. NO ORDERS RECEIVED AT THIS TIME. CURRENTLY ON 8L VIA HI FLOW NC, SATs >90%. RESPIRATIONS SHALLOW, SPLINTING WITH PILLOW. DIMINISHED LUNG SOUNDS BILATERAL BASES. RECEIVED BREATHING TREATMENT AND CPT THERAPY THIS EVENING. PATIENT REPORTING INCREASED ABD DISTENTION, DISCOMFORT. IS RECEIVING MULTIPLE MEDICATIONS FOR CONSTIPATION. ENCOURAGING MOBILITY, INCREASED WATER INTAKE. DISCUSSED AVOIDING USE OF ORDERED OXYCODONE FOR PAIN MANAGMENT. PATIENT REPORTING THAT TYLENOL DOES NOT HELP. OFFERED MULTIPLE NONPHARMACOLOGICAL METHODS FOR PAIN CONTROL, PATIENT DENIES AT THIS TIME. PATIENT REPORTING 10/10 STERNAL PAIN FOLLOWING ABD CT AND CPT THERAPY. MEDICATED PER EMAR WITH SOME REPORTED RELIEF. CALL LIGHT IN REACH.
[2023-11-06] VITALS (14 sets, daily range): BP systolic 102–129; BP diastolic 73–82
[2023-11-06 04:02] LABS: BASOPHILS ABSOLUTE AUTO 0.07 K/mm3 (0.00-0.23); BASOPHILS PERCENT AUTO 1 % (0-2); EOSINOPHILS ABSOLUTE AUTO 0.06 K/mm3 (0.00-0.68); EOSINOPHILS PERCENT AUTO 0 % (0-6); Hematocrit 31.7 % (33.0-51.0); Hemoglobin 10.5 g/dL (11.5-16.0); IMMATURE GRAN ABSOLUTE AUTO 0.38 K/mm3 (0.00-0.10); IMMATURE GRAN PERCENT AUTO 3 % (0-1); LYMPHOCYTES ABSOLUTE AUTO 1.08 K/mm3 (0.84-5.20); LYMPHOCYTES PERCENT AUTO 7 % (21-46); MONOCYTES PERCENT AUTO 10 % (4-13); Mean Corpuscular HGB 30.6 pg (26.0-34.0); Mean Corpuscular HGB Conc 33.1 g/dL (31.5-36.5); Mean Corpuscular Volume 92 fL (80-100); Mean Platelet Volume 9.5 fL (9.1-12.4); NEUTROPHILS ABSOLUTE AUTO 11.85 K/mm3 (1.96-9.15); NEUTROPHILS PERCENT AUTO 79 % (41-73); Platelet Count 562 K/mm3 (150-400); RDW Coefficient Variation 15.1 % (11.7-14.2); RDW Standard Deviation 50.9 fL (35.1-46.3); Red Blood Cell Count 3.43 M/mm3 (3.80-5.20); White Blood Cell Count 14.94 K/mm3 (4.00-11.30)
[2023-11-06 04:29] LABS: Bun/Creatinine Ratio 19.7 (12.0-20.0); Calcium, Blood 9.2 mg/dL (8.5-10.1); Creatinine, Blood 0.81 mg/dL (0.40-1.00); Potassium, Blood 3.8 mmol/L (3.5-5.5)
--- NOTE | 2023-11-06 04:56 | NUR ---
SHIFT SUMMARY NO ACUTE EVENTS SINCE ASSUMPTION OF CARE. PATIENT SLEPT INTERMITTENTLY THROUGHOUT SHIFT. COMMUNICATING NEEDS EFFECTIVELY. MANAGING STERNAL FX PAIN WITH PRN REPOSITIONING, SPLINTING W/ A PILLOW, AND PER EMAR. TELEMETRY SHOWING AFIB 100s-120s. RATE INCREASES TO 130s-140s WITH MOBILITY. CARDIZEM GTT INFUSING AT 10MG/HR. BP STABLE. TITRATED FROM 8L VIA HI FLOW NC TO 4L. SATs >90%. RESPIRATIONS REMAIN SHALLOW. TACHYPNEA WITH MOBILITY. REPOSITIONING HERSELF WITH MINIMAL TO NO ASSIST FROM STAFF. ONE PERSON, SBA WITH MOBILITY. VOIDING. NO BM THIS SHIFT. CALL LIGHT IN REACH. WILL CONTINUE TO MONITOR AND REPORT TO ONCOMING RN.
[2023-11-06] MEDS ORDERED: Pantoprazole Sodium 40 MG Tab PO SCH ×2 (06:00→16:30)
[2023-11-06] MEDS ORDERED: Methimazole 10 MG Tab PO SCH (09:00)
[2023-11-06] MEDS ORDERED: Polyethylene Glycol 3350 17 gm PO SCH (09:00)
[2023-11-06] MEDS ORDERED: AcetaZOLAMIDE 250 MG Tab PO SCH (09:00)
[2023-11-06] MEDS ORDERED: Psyllium 1 EA Pack PO SCH (09:00)
[2023-11-06] MEDS ORDERED: Empagliflozin 10 MG TAB PO SCH (09:00)
[2023-11-06] MEDS ORDERED: Metoprolol Succinate 50 MG TABCR PO SCH (10:00)
[2023-11-06] MEDS ORDERED: Digoxin 0.25 MG/ML 2ML Amp IV SCH (10:00)
[2023-11-06] MEDS ORDERED: Ondansetron HCl 2 MG / ML 2ML Vial IV ONE (10:25)
[2023-11-06] MEDS ORDERED: Magnesium Hydroxide Conc 10 ML UDC PO PRN (13:40)
[2023-11-06] MEDS ORDERED: Bisacodyl 10 MG Supp PR PRN (13:40)
--- NOTE | 2023-11-06 15:20 | NUR ---
Spiritual Care Visit. Pt. is awake and sitting up in a chair when she welcomes my visit. Pt. is pleasant but displays evidence of discomfort. The Pt. verbalizes that the discomfort is due to her inability to void that is a ressult of the pain medication she has been taking. Listened with empathy and a calming presence. Considered matters of ayanna and belief. Pt. verbalized some of the difficulties she has had in trusting God. Through some theraputic listening and additional pastoral pre parole counseling aide, Pt. displays evidence of positive engagement and being encouraged. While holding Pts. hand I Prayed with Pt. Pt. verbalized gratitude for the spiritual care visit.
--- NOTE | 2023-11-06 18:39 | NUR ---
EOS: PATIENT IS ALERT AND ORIENTED X 4, ANXIOUS MOST OF THE DAY, DUE TO NAUSEA AND VOMITTING, PRETTY PAINFUL WITH RIB Fx, HOWEVER, UNABLE TO TOLERATE ORAL MEDS MOST OF THE DAY UNTIL THIS EVENING MILD. PATIENT WITH THIS INCREASED NAUSEA WORSENING PAIN, CONCERN WITH HER RECENT SEVERE CARDIAC HISTORY, EKG OBTAINED, TROP Q4 HOUR X 2, ONE TIME INCREASED NAUSEA. TROP NEG. PATIENT HAS BEEN HR 100-150 WITH EXTREME EXERTION. COOPERATIVE FOR THE MOST PART, BASELINE WC. LIVES WITH DAUGHTER, I BELIEVE CASSIE [phone]. UPDATE GIVEN WILL BE IN TOMORROW TO CHECK ON PATIENT, VERBAL OK TO GIVE INFORMATION BY PATIENT PREVIOUS TO UPDATE. PATIENT HAS BEEN ON RA SPO2 >92%. NO ACUTE CONCERNS DESPITE EXTENSIVE SMOKING HISTORY. PATIENT HAS NOW HAD 3 BOWEL MOVEMENTS, SINCE ARRIVAL TO UNIT. STOOL SENT TO LAB. PATIENT HAS CHRONIC ADAMES THAT WAS CHANGED 11/05/23 BY UROLOGY AND TODAY BY ED RN. DENIES CHEST PAIN PRESSURE OR SOB AT THIS TIME.
--- NOTE | 2023-11-06 18:48 | NUR ---
EOS: PATIENT IS ALERT AND ORIENTED X 4, ANXIOUS MOST OF THE DAY, DUE TO NAUSEA AND VOMITTING, PRETTY PAINFUL WITH RIB Fx, HOWEVER, UNABLE TO TOLERATE ORAL MEDS MOST OF THE DAY UNTIL THIS EVENING MILD. PATIENT WITH THIS INCREASED NAUSEA WORSENING PAIN, CONCERN WITH HER RECENT SEVERE CARDIAC HISTORY, EKG OBTAINED, TROP Q4 HOUR X 2, ONE TIME INCREASED NAUSEA. TROP NEG. PATIENT HAS BEEN HR 100-150 WITH EXTREME EXERTION.
[2023-11-06] MEDS ORDERED: Docusate Sodium 100 MG Cap PO SCH (21:00)
[2023-11-07] VITALS (46 sets, daily range): BP systolic 85–142; BP diastolic 56–108
--- NOTE | 2023-11-07 05:56 | NUR ---
SHIFT SUMMARY PT A&Ox4, CALLS AND COMMUNICATES NEEDS APPROPRIATELY. SBP 90-120's, AFIB 100-130's, DENIES CP/PRESSURE. CARDIZEM gtt AT 10mg/hr, SEE CRITICAL CARE FLOWSHEET FOR TITRATION. SpO2> 92% 3-4L VIA NC, DENIES SOB. PT HAD 1 SMALL FORMED BM AT START OF SHIFT. 1 ASSIST TO BATHRROM. PT C/O 9/10 RIB, STERNUM, AND ABD PAIN THROGHOUT SHIFT. THIS RN TRIED MANAGING PAIN WITH TYLENOL FIRST. PT STILL TEARFUL W/ 9/10 PAIN, SECOND ATTEMPT OF PAIN MANAGEMENT WAS ROXICODONE. PT WAS STILL VERY RESTLESS AND TEARFUL WITH 9/10 PAIN, DISCUSSED WITH ADULT EDUCATION TEACHER AND COLLECTIVELY MADE THE DECISION TO MEDICATE WITH MORPHINE. PT WAS ABLE TO REST COMFORTABLY AFTER MORPHINE DOSE. NO OTHER EVENTS, WILL REPORT TO ONCOMING RN.
[2023-11-07 05:59] LABS: BASOPHILS ABSOLUTE AUTO 0.07 K/mm3 (0.00-0.23); BASOPHILS PERCENT AUTO 1 % (0-2); EOSINOPHILS ABSOLUTE AUTO 0.05 K/mm3 (0.00-0.68); EOSINOPHILS PERCENT AUTO 0 % (0-6); Hematocrit 29.2 % (33.0-51.0); Hemoglobin 9.6 g/dL (11.5-16.0); IMMATURE GRAN ABSOLUTE AUTO 0.44 K/mm3 (0.00-0.10); IMMATURE GRAN PERCENT AUTO 3 % (0-1); LYMPHOCYTES ABSOLUTE AUTO 0.93 K/mm3 (0.84-5.20); LYMPHOCYTES PERCENT AUTO 7 % (21-46); MONOCYTES ABSOLUTE AUTO 1.09 K/mm3 (0.16-1.47); MONOCYTES PERCENT AUTO 8 % (4-13); Mean Corpuscular HGB 30.4 pg (26.0-34.0); Mean Corpuscular HGB Conc 32.9 g/dL (31.5-36.5); Mean Corpuscular Volume 92 fL (80-100); NEUTROPHILS ABSOLUTE AUTO 11.42 K/mm3 (1.96-9.15); NEUTROPHILS PERCENT AUTO 82 % (41-73); Platelet Count 644 K/mm3 (150-400); RDW Coefficient Variation 15.1 % (11.7-14.2); RDW Standard Deviation 50.7 fL (35.1-46.3); Red Blood Cell Count 3.16 M/mm3 (3.80-5.20)
[2023-11-07 05:59] LABS: Base Excess Venous 12.9 mmol/L; Bicarbonate Venous 35.7 mmol/L (24.0-30.0); PCO2 Venous 40.6 mmHg (38-42); pH Blood Venous 7.55 (7.34-7.37)
[2023-11-07 06:18] LABS: Bun/Creatinine Ratio 22.4 (12.0-20.0); Calcium, Blood 8.8 mg/dL (8.5-10.1); Creatinine, Blood 0.71 mg/dL (0.40-1.00); Potassium, Blood 3.5 mmol/L (3.5-5.5)
[2023-11-07] MEDS ORDERED: AcetaZOLAMIDE 250 MG Tab PO SCH (09:00)
[2023-11-07] MEDS ORDERED: Albumin Human 50 ML IV SCH (09:00)
[2023-11-07] MEDS ORDERED: methIMAzole 5 MG TABLET PO SCH (09:00)
[2023-11-07] MEDS ORDERED: Digoxin 0.25 MG Tab PO SCH (10:00)
[2023-11-07 16:22] LABS: PCO2 Arterial 46.2 mmHg (35-45); PO2 Arterial 31.2 mmHg (80-100); pH Blood Arterial 7.47 (7.35-7.45)
[2023-11-07 16:38] LABS: BASOPHILS ABSOLUTE AUTO 0.07 K/mm3 (0.00-0.23); BASOPHILS PERCENT AUTO 0 % (0-2); EOSINOPHILS ABSOLUTE AUTO 0.04 K/mm3 (0.00-0.68); EOSINOPHILS PERCENT AUTO 0 % (0-6); Hematocrit 29.7 % (33.0-51.0); Hemoglobin 9.6 g/dL (11.5-16.0); IMMATURE GRAN ABSOLUTE AUTO 0.41 K/mm3 (0.00-0.10); IMMATURE GRAN PERCENT AUTO 3 % (0-1); LYMPHOCYTES ABSOLUTE AUTO 0.82 K/mm3 (0.84-5.20); LYMPHOCYTES PERCENT AUTO 5 % (21-46); MONOCYTES ABSOLUTE AUTO 1.22 K/mm3 (0.16-1.47); MONOCYTES PERCENT AUTO 7 % (4-13); Mean Corpuscular HGB 30.2 pg (26.0-34.0); Mean Corpuscular HGB Conc 32.3 g/dL (31.5-36.5); Mean Corpuscular Volume 93 fL (80-100); Mean Platelet Volume 8.8 fL (9.1-12.4); NEUTROPHILS ABSOLUTE AUTO 13.91 K/mm3 (1.96-9.15); NEUTROPHILS PERCENT AUTO 85 % (41-73); Platelet Count 687 K/mm3 (150-400); RDW Coefficient Variation 14.9 % (11.7-14.2); RDW Standard Deviation 51.5 fL (35.1-46.3); Red Blood Cell Count 3.18 M/mm3 (3.80-5.20); White Blood Cell Count 16.47 K/mm3 (4.00-11.30)
[2023-11-07 17:02] LABS: Albumin, Blood 2.4 g/dL (3.4-5.0); Albumin/Globulin Ratio 0.6 (0.8-1.8); Bun/Creatinine Ratio 19.4 (12.0-20.0); Calcium, Blood 8.7 mg/dL (8.5-10.1); Creatinine, Blood 0.88 mg/dL (0.40-1.00); Potassium, Blood 3.3 mmol/L (3.5-5.5); Total Protein, Blood 6.4 g/dL (6.4-8.2)
--- NOTE | 2023-11-07 17:27 | NUR ---
INTUBATION: Dr Baker at bedside for intubation. SpO2 75% on monitor. 1727: 70mg propofol pushed IV, 50 mg bianca pushed IV 1728: 8.0 EET placed 23cm at teeth 1728: Pt moving and withdrawaling; 30 mg propofol pushed IV 1729: breath sounds verified by RT
[2023-11-07] MEDS ORDERED: propofoL 100 ML IV ONE (17:30)
[2023-11-07] MEDS ORDERED: propofoL 100 ML IV SCH (17:30)
--- NOTE | 2023-11-07 17:30 | NUR ---
ASSUMED CARE: REPORT FROM KAYA WAYNE. PT TRANSFERRED FROM PCU WITH NRB. SWITCHED TO AIRVO AT 40L, 85% FIO2. SATURATION 74% ON THIS. DR NORMAN AT BEDSIDE WITH DECISION TO INTUBATE. RT AT BEDSIDE. 70MCG PROPOFOL AND 50 OF KATARINA. INTUBATED AT 1728 WITH AN 8.0 ETT AND 23 AT THE TEETH. OG PLACED WITH XRAY CONFIRMATION. ADAMES CATH PLACED. AWAITING DR NORMAN TO PERFORM BRONCH
--- NOTE | 2023-11-07 17:59 | NUR ---
SIGNIFICANT EVENT: PATIENT AT APPROXIMATELY 1605 COTINUOUS PULSE OXIMETRY DROPPED FROM 93% TO READING 67% WITH A STEADY PLEATH. IMMEDIATELY WENT TO EVALUATE PATIENT, PATINET ANXIOUS, ENDORSING SOB. TURNED TO 15L VIA NC FROM HER 4L. RT CALLED, PATIENT APPEARANCE AND SPO2 READING DID NOT MATCH, HOWEVER PATIENT BEGAN TO PRESENT WORSE, EFM PROVIDER WAS ABLE TO RECOVER AFTER ABOUT 15 MINUTES AT THE 15L AND SLOWLY BE TITRATED DOWN TO 8L OVER THIS TIME. ABG WITH CRITICAL RESULTS, EFM PROVIDER AT BEDSIDE SEE NEW ORDERS, SPOKE WITH DR. EMERSON ALVAREZ, STAT CXR. AIRVO APROX AT 40L AT ~54% FIO2. PATIENT WAS ABLE TO MAINTAIN A SAT ABOVE 90%. PATIENT RESTING MAINTAINING SPO2. REPORT GIVEN TO KHANH RUSSELL RN. AT APPROXIMATELY 1649 PATIENT BECAME INCREASINGLY DYSPNIC, UNABLE TO HAVE MAINTAINABLE SPO2 SPO2 ROUGHLY 64%, URGENT ICU TRANSFER AT 1707.
[2023-11-07] MEDS ORDERED: FentaNYL Citrate 50 MCG/ML 2 ML Injection ONE (18:05)
[2023-11-07] MEDS ORDERED: FentaNYL Citrate 50 MCG/ML 2 ML Injection IV PRN (18:10)
--- NOTE | 2023-11-07 18:11 | NUR ---
"Spiritual Care | Family Support | Nurse Request Pt. has been transferred back to ICU8 where she is being intubated. At the request of the charge nurse this heating and ventilation engineer was requested to be with the Spouse. Began facilitating life review when Dr. Baker arrived to give Spouse update. Afterward I brought the Spouse to the ICU lounge, where we resumed a lengthy life review. Sposue verbalized challenges and blessings of his family, his working years, and outings to the inf[place] that provided them a place to hindu. Listened with empathy and a caring presence. Spouse displayed evdidence of trust and continued sharing about their life together. Spouse verbalized gratitude for the spiritual care support. This heating and ventilation engineer left the ICU lounge to check on the Pt. status."
--- NOTE | 2023-11-07 18:15 | NUR ---
BRONCH PERFORMED WITH TENACIOUS, YELLOW SECRETIONS SUCTION, SAMPLE SENT TO LAB FOR CULTURE. 100MCG OF FENTANYL GIVEN FOR PROCEDURE WITH PROPOFOL GTT RUNNING AT 30MCG/KG. BILATERAL WRIST RESTRAINTS. PT HAS SLIGHT MOVEMENT BILATERAL ARMS. SATTING 100% AT 90% FIO2. NO ACUTE NEEDS AT THIS TIME.
[2023-11-07 18:26] LABS: Source, Urine Foley catheter
--- NOTE | 2023-11-07 18:30 | NUR ---
DR NORMAN AT BEDSIDE DISCUSSING MEDS. DISCUSSED SBO WITH HIM AND HE INSTRUCTED FOR LIS AND WILL CHANGE WHAT MEDS HE CAN TO IV. REVIEWING CHART AND STATES HE WILL PERFORM ANOTHER CT DUE TO HISTORY OF ABD. BLEEDING.
[2023-11-07 18:32] LABS: Appearance, Urine Clear (Clear); Bilirubin, Urine Neg (Neg); Blood, Urine Neg (Neg); Color, Urine Yellow (P-Yellow); Glucose Qualitative, Urine 3+ (Neg); Ketones, Urine Neg (Neg); Leukocyte Esterase, Urine 1+ (Neg); Nitrite, Urine Neg (Neg); Protein, Urine 1+ (Neg); Urobilinogen, Urine NORM (Normal)
[2023-11-07] MEDS ORDERED: Ipratropium/Albuterol SulF 2.5-0.5MG/3 ML Amp INH PRN (18:45)
[2023-11-07 18:48] LABS: Bacteria Rare /hpf; Red Blood Cells, Urine Not Seen /hpf (0-2); Squamous Epithelial Cells Not Seen /hpf (Few); Yeast/Fungi Urine Many /hpf
[2023-11-07] MEDS ORDERED: Piperacillin/Tazobactam Sod 4.5 GM in NS 100 ML IV ONE (18:55)
[2023-11-07] MEDS ORDERED: LORazepam 2 MG/ML 1ML Injection IV ONE (18:55)
--- NOTE | 2023-11-07 19:01 | NUR ---
PT'S AT BEDSIDE. PT STARTING TO WAKE AND TRYING TO REACH FOR ETT. PROPOFOL TITRATED UP TO 50MCG/KG. DISCUSSED WITH DR NORMAN WHO INSTRUCTS FOR ATIVAN DOSE NOW AND FENTANYL GTT. AWAITING GTT FROM PHARMACY.
[2023-11-07] MEDS ORDERED: fentaNYL citrate 1,000 MCG in NS 80 ML IV SCH (19:10)
[2023-11-07] MEDS ORDERED: Rocuronium Bromide 10 MG/ML 5ML Injection IV ONE (21:49)
[2023-11-07] MEDS ORDERED: Propofol 10mg/ml 20 ml Vial (Procedural) IV ONE (21:49)
--- NOTE | 2023-11-07 22:57 | NUR ---
ASSUMED CARE AT 1900 PATIENT IS INTUBATED AND SEDATED ON PROPOFOL AND FENTANYL, RASS -2. OPENS EYES TO PAIN AND LOCALIZES TO PAIN. 02 SATS 92% ON VENT AC VC 18/520/5/60%. LARGE AMOUNT OF ORAL SECRETIONS AND THICK GODFREY FORM ETT. LS COARSE THROUGHOUT. A.FIB 100-120, BP STABLE. CARDIZEM DRIP INF. OG TO LIS, GREEN BILE FROM TUBE. ABD DISTENDED, CTA TONIGHT, NO CHANGES, DR. NORMAN AWARE. TEMP ADAMES PATENT AND DRAINING TO GRAVITY. PATIENT REPOSITIONED.
[2023-11-08] VITALS (46 sets, daily range): BP systolic 86–120; BP diastolic 57–104
[2023-11-08] MEDS ORDERED: Piperacillin/Tazobactam Sod 4.5 GM in NS 100 ML IV SCH
[2023-11-08] MEDS ORDERED: Hydrogen Peroxide 1.5 % Solution MT SCH
[2023-11-08 03:41] LABS: Hematocrit 26.9 % (33.0-51.0); Hemoglobin 8.7 g/dL (11.5-16.0); Mean Corpuscular HGB 29.8 pg (26.0-34.0); Mean Corpuscular HGB Conc 32.3 g/dL (31.5-36.5); Mean Corpuscular Volume 92 fL (80-100); Mean Platelet Volume 8.9 fL (9.1-12.4); Platelet Count 591 K/mm3 (150-400); RDW Coefficient Variation 15.2 % (11.7-14.2); RDW Standard Deviation 51.3 fL (35.1-46.3); Red Blood Cell Count 2.92 M/mm3 (3.80-5.20); White Blood Cell Count 10.98 K/mm3 (4.00-11.30)
[2023-11-08 03:44] LABS: PCO2 Venous 37.8 mmHg (38-42); pH Blood Venous 7.51 (7.34-7.37)
[2023-11-08 03:45] LABS: Base Excess Venous 7.4 mmol/L; Bicarbonate Venous 30.7 mmol/L (24.0-30.0)
[2023-11-08 03:59] LABS: Albumin, Blood 2.2 g/dL (3.4-5.0); Albumin/Globulin Ratio 0.6 (0.8-1.8); Bilirubin, Total 1.9 mg/dL (0.1-1.0); Bun/Creatinine Ratio 15.8 (12.0-20.0); Calcium, Blood 8.3 mg/dL (8.5-10.1); Creatinine, Blood 0.95 mg/dL (0.40-1.00); Globulin, Blood 3.5 g/dL (2.2-4.0); Potassium, Blood 2.8 mmol/L (3.5-5.5); Total Protein, Blood 5.7 g/dL (6.4-8.2)
[2023-11-08 04:10] LABS: BAND PERCENT MAN 6 % (0-8); BASOPHILS PERCENT MAN 0 % (0-2); EOSINOPHILS PERCENT MAN 0 % (0-6); LYMPHOCYTES ABSOLUTE MAN 0.87 K/mm3 (0.84-5.20); LYMPHOCYTES PERCENT MAN 8 % (21-46); METAMYELOCYTE ABSOLUTE MAN 0.21 K/mm3 (0.00-0.00); METAMYELOCYTE PERCENT MAN 2 % (0-0); MONOCYTES PERCENT MAN 11 % (4-13); MYELOCYTE PERCENT MAN 1 % (0-0); NEUTROPHILS ABSOLUTE MAN 8.56 K/mm3 (1.96-9.15); SEG NEUTROPHILS PERCENT MAN 72 % (41-73); TOTAL CELLS COUNTED 100
[2023-11-08 04:28] LABS: Magnesium, Blood 1.7 mg/dL (1.6-2.4); Phosphorus, Blood 2.2 mg/dL (2.5-4.9)
[2023-11-08] MEDS ORDERED: Potassium Phosphate Dibasic 30 MM in NS 500 ML IV ONE (04:45)
[2023-11-08] MEDS ORDERED: FentaNYL Citrate 50 MCG/ML 2 ML Injection IV ONE (05:45)
--- NOTE | 2023-11-08 06:08 | NUR ---
SHIFT SUMMARY PATIENT REMAINS INTUBATED AND SEDATED ON PROPOFOL AND FENTANYL. TITRATING PROPOFOL DOWN THIS AM. WITH ANY STIMULI THROUGH THE NIGHT PATIENT WOULD COUGH AND START REACHING FOR THE ETT. VENT SETTING NOW 16/520/5/60%, RATE CHANGED BY RT PER AM VBG RESULTS. LARGE AMOUNT OF SECRETIONS. HR A.FIB 100-120, BP STABLE, CARDIZEM INF. OG TO LIS, GREEN BILE OUTPUT. TEMP ADAMES PATENT AND DRAINING TO GRAVITY. PATIENT REPOSITIONED Q2 HOURS.
--- NOTE | 2023-11-08 15:02 | NUR ---
ASSUMED CARE ASSUMED CARE FROM ROSANA YIP. PT IS INTUBATED AND SEDATED. PT RESTING QUIETLY AT THIS TIME. VITAL SIGNS STABLE. WILL CONTINUE TO MONITOR.
[2023-11-08] MEDS ORDERED: Protein Supplement 30 ML UD PT SCH (16:00)
--- NOTE | 2023-11-08 17:54 | NUR ---
SHIFT SUMMARY PT HAS REMAINED INTUBATED AND SEDATED. VENT SETTINGS AC 16, TV 400, PEEP 10, FIO2 60%. PT SEDATED WITH PROPOFOL AT 40 MCG/KG/MIN AND FENTANYL GTT 100 MCG/HR. PT WITHDRAWS EXTREMITIES TO NOXIOUS STIMULI AND HAS COUGH AND GAG WITH SUCTION. PT DOES NOT FOLLOW DIRECTIONS AT THIS TIME. PICC PLACED TO JOY THIS SHIFT. NS INFUSING TKO AND CARDIZEM AT 10 MG/HR. OGT IN PLACE WITH TF STARTED AT 25 ML/HR GOAL RATE. ADAMES TEMP PROBE IN PLACE WITH DARK YELLOW URINE OUTPUT NOTED. SBW RESTRAINTS IN PLACE. VITAL SIGNS STABLE. WILL CONTINUE TO MONITOR AND REPORT OFF TO ONCOMING RN.
--- NOTE | 2023-11-08 18:15 | NUR ---
"Spiritual Care| Spouse support Pt. is intubated and is not responsive. Spouse is at bedside and welcomes my visit. Spouse verbalized an update of the Pts. condition, and more life review is shared. Pts. spouse verbalized gratitude for the spiritual care that was given when his had to be transferred back into ICU, and well as today's visit."
[2023-11-08] MEDS ORDERED: Potassium Chloride 40 MEQ in NS 250 ML IV SCH (19:30)
--- NOTE | 2023-11-08 20:46 | NUR ---
ASSUMED CARE WITH KEIRA RN @1900 PT REMAINS INTUBATED AND SEDATED ON PROPOFOL AND FENTANYL. RESPONDS TO SOME COMMANDS, WILL OPEN EYES WHEN ASKED BUT WILL NOT SQUEEZE FINGERS, COUGH AND GAG PRESENT DURING ORAL CARE AND SUCTIONING. COMPLIANT WITH VENT AT REST, BECOMING AGGITATED WITH STIMULI, VENT SETTINGS ARE AC/VC 16/400/10/60%, SPO2 97%, LUNG SOUND IMPROVED FROM PREVOUS NIGHT, NO LONGER SOUNDING COARSE BUT NOW CRACKELS. REMIANS IN A-FIB, HR 80'S-90'S, B/P STABLE, CARDIZEM INFUSING. KEIRA WAYNE CALLED DR. CURRAN ABOUT LOW POTASSIUM, NOW REPLACING. ABDOMEN IS DISTENDED WITH SLIGHT BRUISING ON LUQ, BOWEL SOUNDS ACTIVE, BOWEL MOVMENT AT START OF SHIFT. TEMP ADAMES CATHETER SECURE, PATENT AND DRAINING TO GRAVITY. PATIENT RESTING IN BED AFTER BED BATH AND LINEN CHANGE, WILL CONTINUE TO MONITOR AND REPORT ANY CHANGES.
[2023-11-09] VITALS (47 sets, daily range): BP systolic 89–124; BP diastolic 54–84
[2023-11-09 03:53] LABS: Hematocrit 26.8 % (33.0-51.0); Hemoglobin 8.6 g/dL (11.5-16.0); Mean Corpuscular HGB 30.5 pg (26.0-34.0); Mean Corpuscular HGB Conc 32.1 g/dL (31.5-36.5); Mean Corpuscular Volume 95 fL (80-100); Mean Platelet Volume 9.1 fL (9.1-12.4); Platelet Count 587 K/mm3 (150-400); RDW Coefficient Variation 15.3 % (11.7-14.2); RDW Standard Deviation 53.1 fL (35.1-46.3); Red Blood Cell Count 2.82 M/mm3 (3.80-5.20); White Blood Cell Count 11.33 K/mm3 (4.00-11.30)
[2023-11-09 04:10] LABS: Bun/Creatinine Ratio 19.6 (12.0-20.0); Calcium, Blood 8.2 mg/dL (8.5-10.1); Creatinine, Blood 1.02 mg/dL (0.40-1.00); Magnesium, Blood 1.9 mg/dL (1.6-2.4); Phosphorus, Blood 3.5 mg/dL (2.5-4.9); Potassium, Blood 3.4 mmol/L (3.5-5.5)
[2023-11-09 04:20] LABS: BAND PERCENT MAN 6 % (0-8); BASOPHILS PERCENT MAN 0 % (0-2); EOSINOPHILS ABSOLUTE MAN 0.45 K/mm3 (0.00-0.68); EOSINOPHILS PERCENT MAN 4 % (0-6); LYMPHOCYTES % ATYPICAL MANUAL 1 % (0-0); LYMPHOCYTES ABSOLUTE MAN 1.35 K/mm3 (0.84-5.20); LYMPHOCYTES PERCENT MAN 11 % (21-46); METAMYELOCYTE ABSOLUTE MAN 0.45 K/mm3 (0.00-0.00); METAMYELOCYTE PERCENT MAN 4 % (0-0); MONOCYTES ABSOLUTE MAN 0.79 K/mm3 (0.16-1.47); MONOCYTES PERCENT MAN 7 % (4-13); MYELOCYTE ABSOLUTE MAN 0.79 K/mm3 (0.00-0.00); MYELOCYTE PERCENT MAN 7 % (0-0); NEUTROPHILS ABSOLUTE MAN 7.47 K/mm3 (1.96-9.15); SEG NEUTROPHILS PERCENT MAN 60 % (41-73); TOTAL CELLS COUNTED 100
--- NOTE | 2023-11-09 05:59 | NUR ---
SHIFT SUMMARY NO ACUTE CHANGES THROUGHOUT THE NIGHT. PT REMAINS SEDATED AND INTUBATED ON PROPOFOL AND FENTANYL. PT BEGAN FOLLOWING MORE COMMANDS @0400, BEING ABLE TO SQUEEZE FINGERS, AND OPEN EYES TO NAME, COUGH AND GAG PRESENT DURING ORAL CARE AND SUCTION. VENT SETTINGS ARE 16/400/10/50% WITH SPO2 CONSISTANTLY > 95%, MODERATE ORAL SECREATIONS. HR 80'S-90'S, A-FIB, BP STABLE WITH MAP >65, CARDIZEM INFUSING TO PICC. TUBE FEED AT GOAL RATE, ABDOMEND REMAINS DISTENDED AND FIRM, HAD BM AT START OF SHIFT THAT WAS LIQUID AND MUCOUSY. TEMP FOLY SECURED, PATENT AND DRAINING TO GRAVITY. KEIRA WAYNE CALLED DR. CURRAN ABOUT LOW K, REPLACMENT ORDERS GIVEN. PT RESTING IN BED, VITAL SIGNS STABLE, WILL REPORT ANY CHANGES.
[2023-11-09] MEDS ORDERED: Potassium Chloride 40 MEQ in NS 250 ML IV ONE (06:05)
[2023-11-09] MEDS ORDERED: Multivitamins-Minerals Liquid 15 ML Oral Syringe PT SCH (09:00)
--- NOTE | 2023-11-09 09:00 | NUR ---
AM NOTE.... ASSUMED CARE OF PT AT 0700. PT IS INTUBATED AND SEDATED, VENT SETTINGS ARE AC/VC: 16/400/10/50% WITH O2 SATS>95%. ET TUBE IS 8.0 AND 23 AT THE LIPS. L/S CLEAR IN THE UPPER LOBES DIM IN THE RIGHT MID AND BILATERAL LOWER LOBES. PT IS IN AFIB IN THE 90'S TO LOW 100'S. BP STABLE WITH MAPS>65. PT HAS 2+ PITTING EDEMA TO HER BLE AND DEPENDENT EDEMA TO HER BUE. OG TUBE IS PATENT AND RUNNING TUBE FEEDS AT 25MLS/HR. BT ARE PRESENT AND HYPOACTIVE, ABD HAS SEVERE DISTENTION AND IS FIRM TO PALPATION. PT'S TEMP ADAMES IS PATENT AND DRAINING RC/GREENISH URINE TO GRAVITY. TEMP IS 99.1 AT THE TIME OF THIS ASSESSMENT. PT'S RASS IS -2 PROPOFOL IS RUNNING AT 40MCG/KG/MIN, FENTANYL DRIP IS RUNNING AT 100MCG/HR. CARDIZEM DRIP IS AT 5MG/HR. WILL CONTINUE TO MONITOR.
[2023-11-09] MEDS ORDERED: Metoprolol Tartrate 50 MG Tab PT SCH (09:10)
[2023-11-09 13:14] LABS: Phosphorus, Blood 3.1 mg/dL (2.5-4.9); Potassium, Blood 3.7 mmol/L (3.5-5.5)
[2023-11-09] MEDS ORDERED: Sod Phosphate/Sod Biphosphate 132 ML BTL PR PRN (14:10)
[2023-11-09] MEDS ORDERED: Pantoprazole Sodium 40 MG Injection IV SCH (16:30)
--- NOTE | 2023-11-09 18:10 | NUR ---
SHIFT SUMMARY... NO ACUTE NEGATIVE CHANGES NOTED THIS SHIFT. PT'S VS HAVE BEEN STABLE. PT'S SECRETIONS CONITNUE TO BE THICK WHITE/GODFREY IN LARGE AMOUNTS WHEN SUCTIONED. PT HAS STILL NOT HAD A BM THIS SHIFT ONLY LIGHT BROWN LIQUID MUCOUS. PT WAS GIVEN A SUPPOSITORY AND ENEMA WITH NO RESULTS. PROVIDER IS AWARE, CHANGES WERE MADE TO PT'S OTHER BOWEL CARE MEDICATION ORDERS (SEE ORDERS). WILL CONTINUE TO MONITOR UNTIL REPORT IS GIVEN TO ONCOMING RN.
--- NOTE | 2023-11-09 19:37 | NUR ---
ASSUMED CARE AT 1900 PATIENT IS INTUBATED AND SEDATED ON PROPOFOL AND FENTANYL, OPENS EYES TO VERBAL STIMULI AND FOLLOWS SOME SIMPLE COMMANDS. SP02 93% ON VENT AC VC 16/400/10/35%, RR 16. THICK GODFREY SECRETIONS SUCTIONED FROM ETT. HR A.FIB 80s-100, CARDIZEM INF AND PO METOPROLOL SCHEDULED. BP STABLE. TUBE FEED RESTARTED, VITAL HP AT 25 MLS/HR, 30 MLS FLUSHES Q4 HOURS. 140 MLS RESIDUAL FROM OG REPLACED. BOWEL TONES HYPOACTIVE AND ABD DISTENDED. TEMP ADAMES PATENT AND DRAINING TO GRAVITY, RC URINE. ORAL CARE DONE AND PATIENT REPOSITIONED.
[2023-11-09] MEDS ORDERED: Polyethylene Glycol 3350 17 gm PO SCH (21:00)
[2023-11-09] MEDS ORDERED: Sodium Chloride For Inhalation 7% 4 ML VIAL.NEB INH PRN (23:55)
[2023-11-10] VITALS (43 sets, daily range): BP systolic 87–137; BP diastolic 45–103
[2023-11-10 03:44] LABS: Hematocrit 27.2 % (33.0-51.0); Hemoglobin 8.5 g/dL (11.5-16.0); Mean Corpuscular HGB 30.1 pg (26.0-34.0); Mean Corpuscular HGB Conc 31.3 g/dL (31.5-36.5); Mean Corpuscular Volume 97 fL (80-100); Mean Platelet Volume 9.1 fL (9.1-12.4); Platelet Count 603 K/mm3 (150-400); RDW Coefficient Variation 15.2 % (11.7-14.2); RDW Standard Deviation 53.4 fL (35.1-46.3); Red Blood Cell Count 2.82 M/mm3 (3.80-5.20); White Blood Cell Count 11.92 K/mm3 (4.00-11.30)
[2023-11-10 04:03] LABS: Bun/Creatinine Ratio 28.4 (12.0-20.0); Calcium, Blood 7.8 mg/dL (8.5-10.1); Creatinine, Blood 0.85 mg/dL (0.40-1.00); Magnesium, Blood 1.9 mg/dL (1.6-2.4); Phosphorus, Blood 2.6 mg/dL (2.5-4.9); Potassium, Blood 3.5 mmol/L (3.5-5.5)
[2023-11-10 04:27] LABS: BAND PERCENT MAN 2 % (0-8); BASOPHILS ABSOLUTE MAN 0.11 K/mm3 (0.00-0.23); BASOPHILS PERCENT MAN 1 % (0-2); EOSINOPHILS ABSOLUTE MAN 0.23 K/mm3 (0.00-0.68); EOSINOPHILS PERCENT MAN 2 % (0-6); LYMPHOCYTES % ATYPICAL MANUAL 2 % (0-0); LYMPHOCYTES ABSOLUTE MAN 1.43 K/mm3 (0.84-5.20); LYMPHOCYTES PERCENT MAN 10 % (21-46); METAMYELOCYTE ABSOLUTE MAN 0.47 K/mm3 (0.00-0.00); METAMYELOCYTE PERCENT MAN 4 % (0-0); MONOCYTES ABSOLUTE MAN 1.07 K/mm3 (0.16-1.47); MONOCYTES PERCENT MAN 9 % (4-13); MYELOCYTE ABSOLUTE MAN 1.07 K/mm3 (0.00-0.00); MYELOCYTE PERCENT MAN 9 % (0-0); SEG NEUTROPHILS PERCENT MAN 61 % (41-73); TOTAL CELLS COUNTED 100
--- NOTE | 2023-11-10 05:33 | NUR ---
SHIFT SUMMARY PATIENT REMAINS INTUBATED AND SEDATED ON FENTANYL AND PROPOFOL. PROPOFOL BEING TITRATED DOWN THIS MORNING. SP02 96% ON VENT AC VC 16/400/10/45%, RR 16. HR A.FIB 80-110, CARDIZEM OFF. BP STABLE. OG WITH TF AT GOAL RATE. NO BM THIS SHIFT. TEMP ADAMES PATENT AND DRAINING TO GRAVITY. BED BATH DONE. NO ACUTE CHANGES THIS SHIFT.
--- NOTE | 2023-11-10 07:27 | NUR ---
AM NOTE... ASSUMED CARE OF PT AT 0700, PT IS INTUBATED AND SEDATED RASS IS +1 AT THE TIME OF THIS ASSESSMENT. PROPOFOL WAS AT 25MCG/KG/MIN, FENTANYL DRIP AT 100MCG/HR. RESTLESS WITH INCREASING ANXEITY, SHE WAS ABLE TO FOLLOW COMMANDS BUT WAS PULLING AT THE RESTRAINTS AND ATTEMPTING TO PULL AT THE ET TUBE, PROPOFOL WAS INCREASED TO 35MCG/KG/MIN AT THIS TIME. VENT SETTINGS ARE AC/VC+: 16/400/10/45% WITH O2 SATS 90-94%. L/S COARSE CRACKLES HEARD T/O DIM IN THE BASES. COPIOUS AMOUNTS OF WHITE SECRETIONS SUCTIONED THIS AM, THEY ARE THINNER THAN YESTERDAY. BT PRESENT AND HYPOACTIVE, ABD STILL HAS SEVERE DISTENTION AND IS FIRM TO PALPATION. TEMP ADAMES IN PLACE, TEMP AT THIS TIME IS 99.5. CARDIZEM DRIP RESTARTED D/T INCREASED HR 100'S-120'S BP IS STABLE WITH MAPS>65. PT HAS 1+ EDEMA TO HER BLE AND BUE. WILL CONTINUE TO MONITOR.
[2023-11-10] MEDS ORDERED: Metoclopramide HCl 5MG / ML 2ML Vial IV PRN (10:35)
--- NOTE | 2023-11-10 13:09 | NUR ---
PT UPDATE.... SBT STARTED AT 1030 FENTANYL DECREASED TO 50MCG/HR PROPOFOL OFF AT 1100. VENT SETTINGS SP: 7/5 45% WITH O2 SATS>95%. PT ABLE TO USE PEN AND PAPER TO COMMUNICATE NEEDS. PT'S FAMILY AT THE BEDSIDE. AT [address] CURRAN AT THE BEDSIDE TO ASSESS THE PT. PLANS TO EXTUBATE WITH RT. WILL CONTINUE TO MONITOR.
--- NOTE | 2023-11-10 17:48 | NUR ---
SHIFT SUMMARY.... PT WAS EXTUBATED AT 1315 TO 6L NC, THEN AT 1515 PT WAS PLACED ON THE BIPAP OF 12/7 AND 40%. PT'S VS HAVE BEEN STABLE T/O THIS SHIFT. PT AND FAMILY EDUCATED ON FLUTTER VALVE AND I.S. USE TO PREVENT RE-INTUBATION. CARDIZEM DRIP IS RUNNING AT 5MG/HR, ALL OTHER DRIPS STOPPED. PT HAD 1 SMALL FORMED BROWN STOOL THIS SHIFT. TEMP ADAMES IS PATENT AND DRAINING TO GRAVITY. CALL LIGHT IN REACH WILL CONTINUE TO MONITOR UNTIL REPORT IS GIVEN TO ONCOMING RN.
[2023-11-11] VITALS (33 sets, daily range): BP systolic 103–147; BP diastolic 55–99
[2023-11-11 04:58] LABS: Hematocrit 30.7 % (33.0-51.0); Hemoglobin 9.4 g/dL (11.5-16.0); Mean Corpuscular HGB 29.1 pg (26.0-34.0); Mean Corpuscular HGB Conc 30.6 g/dL (31.5-36.5); Mean Corpuscular Volume 95 fL (80-100); Mean Platelet Volume 9.2 fL (9.1-12.4); NRBC ABSOLUTE 0.02 K/mm3 (0.00-0.02); NRBC Auto 0.1 /100 WBC (0.0-0.2); Platelet Count 678 K/mm3 (150-400); RDW Coefficient Variation 14.9 % (11.7-14.2); RDW Standard Deviation 51.8 fL (35.1-46.3); Red Blood Cell Count 3.23 M/mm3 (3.80-5.20); White Blood Cell Count 16.47 K/mm3 (4.00-11.30)
[2023-11-11 05:28] LABS: Bun/Creatinine Ratio 29.9 (12.0-20.0); Calcium, Blood 8.7 mg/dL (8.5-10.1); Creatinine, Blood 0.67 mg/dL (0.40-1.00); Magnesium, Blood 2.1 mg/dL (1.6-2.4); Potassium, Blood 3.6 mmol/L (3.5-5.5)
[2023-11-11 05:42] LABS: BAND PERCENT MAN 3 % (0-8); BASOPHILS ABSOLUTE MAN 0.16 K/mm3 (0.00-0.23); BASOPHILS PERCENT MAN 1 % (0-2); EOSINOPHILS ABSOLUTE MAN 0.32 K/mm3 (0.00-0.68); EOSINOPHILS PERCENT MAN 2 % (0-6); LYMPHOCYTES ABSOLUTE MAN 1.81 K/mm3 (0.84-5.20); LYMPHOCYTES PERCENT MAN 11 % (21-46); METAMYELOCYTE ABSOLUTE MAN 0.98 K/mm3 (0.00-0.00); METAMYELOCYTE PERCENT MAN 6 % (0-0); MONOCYTES ABSOLUTE MAN 1.64 K/mm3 (0.16-1.47); MONOCYTES PERCENT MAN 10 % (4-13); MYELOCYTE ABSOLUTE MAN 0.65 K/mm3 (0.00-0.00); MYELOCYTE PERCENT MAN 4 % (0-0); NEUTROPHILS ABSOLUTE MAN 10.87 K/mm3 (1.96-9.15); SEG NEUTROPHILS PERCENT MAN 63 % (41-73); TOTAL CELLS COUNTED 100
--- NOTE | 2023-11-11 05:44 | NUR ---
SHIFT SUMMERY PT HAS REMAINED ALERT AND ORIENTED X4 OVERNIGHT. SHE HAS REMAINED BIPAP DEPENDENT, NOT TOLERATING NC AT THIS TIME. SHE HAD 2 BOWEL MOVEMENTS. SHE REMAINS ON CARDIZEM DRIP-SEE FLOWSHEET. 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 PT WAS GIVEN PAIN MEDICATION PER EMAR. SHE HAS BEEN AFEBRILE. HER DISPOSITION HAS BEEN QUITE DIFFICULT AT TIMES SHE IS QUITE DEMANDING, TEARFUL, ANGRY, AND IRRITABLE. I MADE MULTIPLE ATTEMPTS TO ASSIST THE PATIENT W/REPOSITIONING AND PROVIDED DISEASE EDUCATION THROUGHOUT THE NIGHT BUT THE PATIENT WAS NOT APPEASED VERY WELL. ADAMES CATH INTACT PATENT AND DRAINING. PAIN MEDICATION GIVEN APPROPRIATE-SEE EMAR
[2023-11-11] MEDS ORDERED: Potassium Phosphate Dibasic 20 MM in Dextrose 5% 500 ML IV ONE (06:00)
[2023-11-11] MEDS ORDERED: NS 250 ML IV PRN (09:05)
--- NOTE | 2023-11-11 17:44 | NUR ---
SHIFT SUMMARY PATIENT WAS UP TO CHAIR THIS AFTERNOON FOR DINNER. TOLERATED PO INTAKE WELL WITH MEDS IN PUDDING. REMAINS ON CARDIZEM @ 10MG/HR-HEART RATE 90'S-120'S AND BP STABLE. PATIENT TOLERATES NC @ 5LPM WELL WITH SPO2 GREATER THAN 90%. PATIENT HAD ONE BM THIS SHIFT AND GOOD URINE OUTPUT WITH OVER 2L OUT. LOVENOX ORDERED BY DR. CURRAN FOR DVT PROPHYLAXIS. NO OTHER CHANGES THIS SHIFT.
--- NOTE | 2023-11-11 19:15 | NUR ---
ASSUMPTION OF CARE: ASSUMED CARE OF PATIENT. PATIENT SITTING UP IN THE RECLINER. PATIENT'S BREATHING IS EVEN, CALM AND REGULAR. PATIENT ON 5L VIA NC. CARDIZEM GTT CONTINUES AT 10 MG/HR. HR IN THE 90S. SPO2 >95%. BLOOD PRESSURE STABLE WITH SBP IN THE 120S-130S. ADAMES IN PLACE AND DRAINING FREELY DARK YELLOW URINE. PATIENT REPORTS SOME PAIN IN RIBS AND RIGHT FOOT. PATIENT REPORTS SOME FATIGUE AND READINESS TO GET BACK INTO BED. AT THE BEDSIDE.
[2023-11-11] MEDS ORDERED: Enoxaparin 100 MG/ML 1ML SYR SC SCH ×2 (21:00)
[2023-11-12] VITALS (26 sets, daily range): BP systolic 111–167; BP diastolic 59–125
[2023-11-12 04:49] LABS: Base Excess Venous 3.5 mmol/L; Bicarbonate Venous 26.9 mmol/L (24.0-30.0); PCO2 Venous 45.6 mmHg (38-42)
[2023-11-12 04:58] LABS: Hematocrit 32.2 % (33.0-51.0); Hemoglobin 10.2 g/dL (11.5-16.0); Mean Corpuscular HGB Conc 31.7 g/dL (31.5-36.5); Mean Corpuscular Volume 95 fL (80-100); Mean Platelet Volume 8.8 fL (9.1-12.4); NRBC ABSOLUTE 0.02 K/mm3 (0.00-0.02); NRBC Auto 0.1 /100 WBC (0.0-0.2); Platelet Count 653 K/mm3 (150-400); RDW Coefficient Variation 15.1 % (11.7-14.2); RDW Standard Deviation 51.9 fL (35.1-46.3); White Blood Cell Count 16.51 K/mm3 (4.00-11.30)
[2023-11-12 05:45] LABS: BAND PERCENT MAN 3 % (0-8); BASOPHILS PERCENT MAN 0 % (0-2); EOSINOPHILS PERCENT MAN 0 % (0-6); LYMPHOCYTES ABSOLUTE MAN 1.81 K/mm3 (0.84-5.20); LYMPHOCYTES PERCENT MAN 11 % (21-46); METAMYELOCYTE ABSOLUTE MAN 1.32 K/mm3 (0.00-0.00); METAMYELOCYTE PERCENT MAN 8 % (0-0); MONOCYTES ABSOLUTE MAN 0.99 K/mm3 (0.16-1.47); MONOCYTES PERCENT MAN 6 % (4-13); MYELOCYTE ABSOLUTE MAN 0.16 K/mm3 (0.00-0.00); MYELOCYTE PERCENT MAN 1 % (0-0); NEUTROPHILS ABSOLUTE MAN 12.21 K/mm3 (1.96-9.15); SEG NEUTROPHILS PERCENT MAN 71 % (41-73); TOTAL CELLS COUNTED 100
--- NOTE | 2023-11-12 06:02 | NUR ---
SHIFT SUMMARY: NEURO: PATIENT ALERT AND ORIENTED TO PLACE, SITUATION, FAMILY. PATIENT FOLLOWING DIRECTIONS AND REMEMBERING INFORMATION PROVIDED BY THE RN. PATIENT ABLE TO MAKE HER NEEDS KNOWN. PATIENT HAS NUMBNESS/TINGLING AT BASELINE IN HER BLE. PATIENT HAS SOME ADDITIONAL NERVE PAIN TO THE OUTER PARTS OF HER RIGHT FOOT THAT SHE REPORTS IS NEW SINCE HOSPITALIZATION. PATIENT HAS INCREASED PAIN WITH MOBILITY. MEDICATED WITH PRN PAIN MEDICATIONS. PATIENT UP TO BSC TWICE THIS EVENING. RESPIRATORY: PATIENT ON BIPAP FOR THE MAJORITY OF THE NIGHT (12//40%). SPO2 >90%. LUNG SOUNDS INITIALLY HAD FINE CRACKLES IN THE BASES. THIS CLEARED AFTER BEING PLACED ON THE BIPAP FOR THE NIGHT. PATIENT TOLERATED WELL WITH A FEW BREAKS DURING THE NIGHT TO 5L O2 VIA NC. NO DESATURATIONS NOTED WITH ACTIVITY. CARDIAC: PATIENT CONTINUES TO BE IN AFIB. RATE CONTROLLED IN THE 90S. CARDIZEM GTT CONTINUES AT 10 MG/HR. BLOOD PRESSURES STABLE WITH SBP IN THE 110S-130S. MAPS >65. GI/: ADAMES IN PLACE AND DRAINING DARK YELLOW TO RC URINE. PATIENT HAD TWO LARGE-EXTRA LARGE BOWEL MOVEMENTS THIS NIGHT. THE FIRST WAS HARD AND THE SECOND WAS SOFT, BUT FORMED. BOTH WERE BRWON. PATIENT TOLERATING PO INTAKE WITHOUT SIGNS OF ASPIRATION. PATIENT TOLERATING PO INTAKE WITHOUT NAUSEA OR INCREASED ABDOMINAL DISCOMFORT. PSYCHSOCIAL: PATIENT CALM AND COOPERATIVE THROUGHOUT THE SHIFT. PATIENT'S AT BEDSIDE AT THE BEGINNING OF SHIFT. HE LEFT PRIOR TO VISITING HOURS BEING OVER. THEIR CONVERSATION WAS CALM IN THE ROOM.
[2023-11-12 06:16] LABS: Bun/Creatinine Ratio 21.6 (12.0-20.0); Calcium, Blood 9.1 mg/dL (8.5-10.1); Creatinine, Blood 0.7 mg/dL (0.40-1.00); Potassium, Blood 3.1 mmol/L (3.5-5.5)
[2023-11-12] MEDS ORDERED: Potassium Phosphate Dibasic 20 MM in Dextrose 5% 500 ML IV ONE (07:10)
[2023-11-12 13:30] LABS: Albumin, Blood 3.1 g/dL (3.4-5.0); Anion Gap 10 mmol/L (3-11); Blood Urea Nitrogen 12 mg/dL (8-24); Bun/Creatinine Ratio 16.9 (12.0-20.0); CO2, Blood 29 mmol/L (21-32); Calcium, Blood 8.9 mg/dL (8.5-10.1); Chloride, Blood 100 mmol/L (98-108); Creatinine, Blood 0.71 mg/dL (0.40-1.00); Glomerular Filtration Rate 98 (60-); Glucose, Blood 137 mg/dL (70-99); Phosphorus, Blood 2.9 mg/dL (2.5-4.9); Potassium, Blood 3.5 mmol/L (3.5-5.5); Sodium, Blood 135 mmol/L (136-145)
--- NOTE | 2023-11-12 16:12 | NUR ---
ABDULKADIR IS CURRENTLY OFF HER DILTIAZEM, HAS BEEN OFF SINCE 1430 (DECLAN) AND SHE HAS REMAINED <100 HR. BP STABLE. SHE HAS BEEN UP IN THE RECLINER TODAY FOR A COUPLE OF HOURS. SHE HAS ALSO BEEN UP TO THE BS WITH LARGE BROWN SOFT STOOL. SHE HAS BEEN ABLE TO EAT SOME OF HER TRAYS AND IS TAKING IN WATER WITHOUT INCIDENT. SHE REMAINS PAINFUL WITH ANY BIG MOVEMENT BUT IS EXPRESSING A DESIRE TO DO MORE ACTIVITY. PLAN TO MOVE HER ABOUT THE UNIT TOMORROW AND NOT JUST AMB IN HER ROOM.
--- NOTE | 2023-11-12 17:48 | NUR ---
ABDULKADIR WOKE FROM HER AFTERNOON NAP ASKING TO GO FOR A WALK AROUND THE UNIT. SHE WAS PREPPED AND OXYGEN TANK AT 3L, USE OF WALKER AND GAIT BELT, SHE WAS ABLE TO MAKE AN ENTIRE LAP AROUND THE NURSES' STATION. SHE TOLERATED WELL AND WENT TO THE RECLINER TO HAVE HER DINNER. SHE CONTINUES WITH THE HEALING SCABS OVER THE KNEE, THE ELBOW, THE LIP, THE TOES, MOSTLY ON THE RIGHT SIDE. SHE DID STATE THAT THEY ARE BEGINNING TO ITCH. SHE CONTINUES WITH COLD FINGERS AND TOES FROM THE REYNAUD'S, WEARS SLIPPERS WHEN SHE IS UP IN THE ROOM. HER MENTATION HAS BEEN GOOD T/O THE DAY, KEEPING UP WITH CONVERSTION AND REMEMBER- ING WHAT HAS BEEN SAID. SHE IS EXPRESSING HER MOTIVATION TO GET BETTER. HUS- BAND AND CHILDREN HAVE BEEN IN AND OUT T/O THE DAY. MEDICATED X 2 WITH FENTANYL AND ONCE WITH ORAL PAIN MEDICATION. IBUPROFEN IS SCHEDULED TO START THIS EVENING.
--- NOTE | 2023-11-12 19:23 | NUR ---
ASSUMED CARE OF PATIENT AT 1900. REPORT RECEIVED FROM ROSANA BOWIE. PT RESTING IN BED. NOTES THAT SHE DID A LOT OF AMBULATION TODAY AND IS REQUESTING PAIN MEDICATION. ON 3LPM O2 VIA NC WITH SATURATION OF 95%. HR IN 100'S, BP 151/89. ADAMES IN PLACE DRAINING YELLOW URINE TO GRAVITY. SEE SHIFT ASSESSMENT FOR FULL DETAILS.
[2023-11-12] MEDS ORDERED: Ibuprofen 600 MG Tab PO SCH (21:00)
[2023-11-12] MEDS ORDERED: Apixaban 5 MG Tab PO SCH (21:00)
[2023-11-12] MEDS ORDERED: Lactobacil 2-S.Thermo-Bifido 1 1 Cap PO SCH (21:00)
[2023-11-13] VITALS (15 sets, daily range): BP systolic 110–149; BP diastolic 65–119
[2023-11-13 04:27] LABS: Hemoglobin 10.1 g/dL (11.5-16.0); Mean Corpuscular HGB 29.9 pg (26.0-34.0); Mean Corpuscular HGB Conc 31.6 g/dL (31.5-36.5); Mean Corpuscular Volume 95 fL (80-100); Platelet Count 596 K/mm3 (150-400); RDW Standard Deviation 51.8 fL (35.1-46.3); Red Blood Cell Count 3.38 M/mm3 (3.80-5.20); White Blood Cell Count 15.03 K/mm3 (4.00-11.30)
[2023-11-13 04:57] LABS: Albumin, Blood 2.8 g/dL (3.4-5.0); Anion Gap 8 mmol/L (3-11); Blood Urea Nitrogen 13 mg/dL (8-24); Bun/Creatinine Ratio 22.6 (12.0-20.0); CO2, Blood 29 mmol/L (21-32); Calcium, Blood 8.7 mg/dL (8.5-10.1); Chloride, Blood 105 mmol/L (98-108); Creatinine, Blood 0.58 mg/dL (0.40-1.00); Glomerular Filtration Rate 105 (60-); Glucose, Blood 95 mg/dL (70-99); Magnesium, Blood 1.8 mg/dL (1.6-2.4); Phosphorus, Blood 3.1 mg/dL (2.5-4.9); Potassium, Blood 3.2 mmol/L (3.5-5.5); Sodium, Blood 139 mmol/L (136-145)
--- NOTE | 2023-11-13 05:19 | NUR ---
SHIFT SUMMARY PT REMAINED A&O X 4 T/O ENTIRETY OF SHIFT. ABLE TO FOLLOW COMMANDS, MAKE PURPOSEFUL MOVEMENTS, AND MAKE NEEDS KNOWN. AFEBRILE. REPORTED PAIN OF CHEST AND FEET. MEDICATED PER EMAR WITH GOOD BENEFIT. MONITOR SHOWED AFIB WITH HR IN 90'S-120'S. SBP 120'S-140'S. REMAINED ON 3LPM O2 VIA NC WITH SATURATIONS > 90%. ONE MEDIUM BROWN/YELLOW LOOSE BM THIS SHIFT. DECREASED APPETITE BUT TOLERATED YOGURT WITH MEDS AND ASKED FOR A STRING CHEESE IN LATE EVENING. ADAMES PATENT AND DRAINING RC COLORED URINE TO GRAVITY. PT REPORTS PAIN IN BILATERAL FEET D/T RAYNAUD'S. PICC TO JOY, PG TO MARCIAL. ORDER FOR POTASSIUM REPLACEMENT PLACED PER HOSPITALIST. WILL CONTNIUE TO MONITOR AND REPORT TO ONCOMING RN.
[2023-11-13] MEDS ORDERED: Potassium Chloride 40 MEQ in NS 250 ML IV ONE (05:25)
[2023-11-13 05:37] LABS: BAND PERCENT MAN 4 % (0-8); BASOPHILS PERCENT MAN 2 % (0-2); EOSINOPHILS ABSOLUTE MAN 0.75 K/mm3 (0.00-0.68); EOSINOPHILS PERCENT MAN 5 % (0-6); LYMPHOCYTES ABSOLUTE MAN 1.65 K/mm3 (0.84-5.20); LYMPHOCYTES PERCENT MAN 11 % (21-46); METAMYELOCYTE ABSOLUTE MAN 0.45 K/mm3 (0.00-0.00); METAMYELOCYTE PERCENT MAN 3 % (0-0); MONOCYTES PERCENT MAN 10 % (4-13); MYELOCYTE ABSOLUTE MAN 0.75 K/mm3 (0.00-0.00); MYELOCYTE PERCENT MAN 5 % (0-0); NEUTROPHILS ABSOLUTE MAN 9.61 K/mm3 (1.96-9.15); SEG NEUTROPHILS PERCENT MAN 60 % (41-73); TOTAL CELLS COUNTED 100
[2023-11-13] MEDS ORDERED: Metoprolol Tartrate 1 MG/ML 5 ML VIAL IV ONE ×3 (16:00→23:25)
--- NOTE | 2023-11-13 18:30 | NUR ---
Shift summary. Pt alert and oriented throughout shift. No acute events. Status changed to PCU. Up to chair and bedside commode throughout the day w/occasional rest periods in bed. Pt receiving prn pain medications for chest/rib pain, probably from CPR. Brought to PCU with this RN this afternoon. Pt overall seems improved over report from yesterday. See chart for further details. Will report off to nightshift RN.
[2023-11-13] MEDS ORDERED: Metoprolol Tartrate 50 MG Tab PO SCH (21:00)
[2023-11-13] MEDS ORDERED: Ciprofloxacin 500 MG Tab PO SCH (21:00)
--- NOTE | 2023-11-14 02:09 | NUR ---
LATE NOTE. ON SHIFT CHANGE, PT WAS RUNNING AFIB W/RVR. ADMINISTERED 5 MG IV LOPRESSOR NOT LONG AFTER SHIFT CHANGE. MINIMAL IMPACT ON HR. ADMINISTERED 100 MG PO TOPROL AT ~2000. HR CONTINUED TO RUN 110s-130s THROUGHOUT THE EVENING WITH TACHY TO 170s WITH AMBULATION/TRANSFER. NOTIFIED MALIKA AROUND 2300 WHO ORDERED 5 MG IV LOPRESSOR ONE TIME WITH 5 MORE MG TO BE ADMINISTERED AFTER 15 MINUTES IF RATE DOES NOT COME BELOW 110. AFTER FIRST ADMINISTRATION OF IV LOPRESSOR, HR HAS BEEN MORE STEADY IN 90s-110s RANGE PRIMARILY SETTLING IN THE 100s. CONTINUES TO BE LABILE. PT REMAINS ASYMPTOMATIC. CONTINUING TO MONITOR.
[2023-11-14 04:31] VITALS: BP 127/79
--- NOTE | 2023-11-14 04:45 | NUR ---
SHIFT SUMMARY. OUTSIDE OF HEART RATE AND PAIN MANAGEMENT, SHIFT HAS BEEN UNREMARKABLE. PT AOX4, PLEASANT, COOPERATIVE WITH CARE, CALLS APPROPRIATELY, ABLE TO MAKE NEEDS KNOWN. SOMEWHAT ANXIOUS BUT ABLE TO RELAX AND SLEEP THROUGH MUCH OF SHIFT. TELE CONTINUES TO SHOW PT RUNNING AFIB BUT HR HAS SETTLED MORE IN THE 80s-110s RANGE IN THE LATTER HALF OF THIS MORNING. CONTINUES TO TACHY WITH AMBULATION BUT MOST RECENT INSTANCE OF PT STANDING AT BEDSIDE ONLY SHOWED HR INCREASE TO 120s RATHER THAN 170s. CONTINUES TO SATURATE WELL ON 2-3 L O2 VIA NC. VITALS HAVE BEEN STABLE. PAIN ADEQUATELY MANAGED VIA EMAR. BED LOCKED IN LOWEST POSITION. CALL LIGHT LEFT WITHIN REACH. CONTINUING TO MONITOR.
[2023-11-14 05:13] LABS: Hematocrit 35.5 % (33.0-51.0); Hemoglobin 10.8 g/dL (11.5-16.0); Mean Corpuscular HGB Conc 30.4 g/dL (31.5-36.5); Mean Corpuscular Volume 95 fL (80-100); Platelet Count 614 K/mm3 (150-400); RDW Coefficient Variation 14.9 % (11.7-14.2); RDW Standard Deviation 51.9 fL (35.1-46.3); Red Blood Cell Count 3.72 M/mm3 (3.80-5.20); White Blood Cell Count 13.93 K/mm3 (4.00-11.30)
[2023-11-14 05:55] LABS: BAND PERCENT MAN 1 % (0-8); BASOPHILS PERCENT MAN 0 % (0-2); EOSINOPHILS ABSOLUTE MAN 1.67 K/mm3 (0.00-0.68); EOSINOPHILS PERCENT MAN 12 % (0-6); LYMPHOCYTES % ATYPICAL MANUAL 1 % (0-0); LYMPHOCYTES ABSOLUTE MAN 1.67 K/mm3 (0.84-5.20); LYMPHOCYTES PERCENT MAN 11 % (21-46); MONOCYTES ABSOLUTE MAN 0.69 K/mm3 (0.16-1.47); MONOCYTES PERCENT MAN 5 % (4-13); MYELOCYTE ABSOLUTE MAN 0.69 K/mm3 (0.00-0.00); MYELOCYTE PERCENT MAN 5 % (0-0); NEUTROPHILS ABSOLUTE MAN 9.19 K/mm3 (1.96-9.15); SEG NEUTROPHILS PERCENT MAN 65 % (41-73); TOTAL CELLS COUNTED 100
[2023-11-14 05:56] LABS: Anion Gap 12 mmol/L (3-11); Blood Urea Nitrogen 17 mg/dL (8-24); Bun/Creatinine Ratio 24.4 (12.0-20.0); CO2, Blood 26 mmol/L (21-32); Calcium, Blood 9.1 mg/dL (8.5-10.1); Chloride, Blood 108 mmol/L (98-108); Glomerular Filtration Rate 100 (60-); Glucose, Blood 96 mg/dL (70-99); Potassium, Blood 3.5 mmol/L (3.5-5.5); Sodium, Blood 142 mmol/L (136-145)
[2023-11-14 07:22] VITALS: BP 153/99
[2023-11-14] MEDS ORDERED: Potassium Chloride 20 MEQ TabCR PO SCH (09:00)
[2023-11-14] MEDS ORDERED: Metoprolol Succinate 50 MG TABCR PO ONE (09:30)
[2023-11-14] MEDS ORDERED: Amiodarone HCl 200 MG Tab PO ONE (09:30)
--- NOTE | 2023-11-14 10:39 | NUR ---
1035 THIS RN NOTIFIED BY [employer] THAT PT HR TACHY TO THE 170'S. THIS RN TO PT ROOM FOR ASSESSMENT. PT RETURNING TO RECLINER FROM AMBULATING TO TOILET WITH SUPERVISOR FIREWORKS ASSEMBLY PRESENT. PT SOB WITH AMBULATING. HR AT 140 PT WAS SITTING IN RECLINER. HR STICKING AROUND 120-130'S OF 1041.
[2023-11-14 16:24] VITALS: BP 11/75; BP 113/75
--- NOTE | 2023-11-14 17:40 | NUR ---
SHIFT SUMMARY PT A/OX4 ANXIOUS AT TIMES. PT ABLE TO EXPRESS NEEDS AND CALLS APPROPIATE. PT EXPRESSED PAIN OF HER RIBS, TREATED PER EMAR. PT REMAINED AFIB 100-120'S AT REST AND 120-170'S WITH EXERTION, PT REPORTS NO CHEST PAIN/PRESSURE RELATED TO CARDIAC. PT HR REBOUNDS FAIRLY QUICK ONCE PT IS AT REST. PT REPORTS SOB WITH EXERTION, 2L NC KEEPS PT STS IN THE 90'S. OTHER VSS THROUGHOUT SHIFT.PT UP TO BATHROOM MULTIPLE TIMES DURING SHIFT, TOLERATED FAIR. PICC REMOVED PER MD ORDER. PT AT BEDSIDE FOR ROUGHLY HALF OF SHIFT, UPDATED ON PT'S CONDITION.
[2023-11-14] MEDS ORDERED: Amiodarone HCl 200 MG Tab PO SCH (21:00)
[2023-11-14 22:53] VITALS: BP 132/79
--- NOTE | 2023-11-15 04:53 | NUR ---
SHIFT SUMMARY NO ACUTE CHANGES THIS SHIFT. VSS, HR 80'S TO 110'S WHEN ASLEEP, 110'S TO 120'S WHILE AWAKE, AFIB WITH SABLE BP. WAS ON RA UNTIL FALLING ALSLEEP, PLACE ON 2LNC AT THAT TIME TO MAINTAIN SPO2 >90%. PT TOLERATED CPT WELL THIS SHIFT, REQUIRED PAIN MEDICATION AFTER THIS BUT IS OVERALL C/O LESS PAIN THAN PREVIOUS SHIFTS. COMPLETED ARTERIAL ULTRASOUND STUDDY AT BEGINNING OF SHIFT, AWAITING RESULTS. OTHERWISE, PT RESTING OFF AND ON T/O SHIFT.
[2023-11-15 05:31] VITALS: BP 102/80
[2023-11-15 06:54] LABS: BASOPHILS ABSOLUTE AUTO 0.18 K/mm3 (0.00-0.23); BASOPHILS PERCENT AUTO 2 % (0-2); EOSINOPHILS ABSOLUTE AUTO 0.62 K/mm3 (0.00-0.68); EOSINOPHILS PERCENT AUTO 6 % (0-6); Hematocrit 36.2 % (33.0-51.0); Hemoglobin 11.2 g/dL (11.5-16.0); IMMATURE GRAN ABSOLUTE AUTO 0.96 K/mm3 (0.00-0.10); IMMATURE GRAN PERCENT AUTO 9 % (0-1); LYMPHOCYTES ABSOLUTE AUTO 1.71 K/mm3 (0.84-5.20); LYMPHOCYTES PERCENT AUTO 16 % (21-46); MONOCYTES ABSOLUTE AUTO 1.17 K/mm3 (0.16-1.47); MONOCYTES PERCENT AUTO 11 % (4-13); Mean Corpuscular HGB 29.4 pg (26.0-34.0); Mean Corpuscular HGB Conc 30.9 g/dL (31.5-36.5); Mean Corpuscular Volume 95 fL (80-100); Mean Platelet Volume 9.1 fL (9.1-12.4); NEUTROPHILS ABSOLUTE AUTO 6.32 K/mm3 (1.96-9.15); NEUTROPHILS PERCENT AUTO 58 % (41-73); Platelet Count 544 K/mm3 (150-400); RDW Coefficient Variation 15.2 % (11.7-14.2); RDW Standard Deviation 51.8 fL (35.1-46.3); Red Blood Cell Count 3.81 M/mm3 (3.80-5.20); White Blood Cell Count 10.96 K/mm3 (4.00-11.30)
[2023-11-15 07:01] LABS: Albumin, Blood 3.2 g/dL (3.4-5.0); Anion Gap 9 mmol/L (3-11); Blood Urea Nitrogen 19 mg/dL (8-24); Bun/Creatinine Ratio 30.4 (12.0-20.0); CO2, Blood 26 mmol/L (21-32); Calcium, Blood 9.5 mg/dL (8.5-10.1); Chloride, Blood 110 mmol/L (98-108); Creatinine, Blood 0.63 mg/dL (0.40-1.00); Glomerular Filtration Rate 103 (60-); Glucose, Blood 97 mg/dL (70-99); Magnesium, Blood 1.7 mg/dL (1.6-2.4); Phosphorus, Blood 3.1 mg/dL (2.5-4.9); Potassium, Blood 3.9 mmol/L (3.5-5.5); Sodium, Blood 141 mmol/L (136-145)
[2023-11-15 07:16] LABS: BAND PERCENT MAN 1 % (0-8); BASOPHILS PERCENT MAN 0 % (0-2); EOSINOPHILS ABSOLUTE MAN 0.32 K/mm3 (0.00-0.68); EOSINOPHILS PERCENT MAN 3 % (0-6); LYMPHOCYTES ABSOLUTE MAN 0.76 K/mm3 (0.84-5.20); LYMPHOCYTES PERCENT MAN 7 % (21-46); METAMYELOCYTE ABSOLUTE MAN 0.21 K/mm3 (0.00-0.00); METAMYELOCYTE PERCENT MAN 2 % (0-0); MONOCYTES ABSOLUTE MAN 0.65 K/mm3 (0.16-1.47); MONOCYTES PERCENT MAN 6 % (4-13); NEUTROPHILS ABSOLUTE MAN 8.98 K/mm3 (1.96-9.15); SEG NEUTROPHILS PERCENT MAN 81 % (41-73); TOTAL CELLS COUNTED 100
[2023-11-15 08:02] VITALS: BP 128/96
[2023-11-15] MEDS ORDERED: Furosemide 10 MG/ML 4ML Vial IV SCH (09:00)
[2023-11-15] MEDS ORDERED: Metoprolol Succinate 50 MG TABCR PO SCH (09:00)
[2023-11-15] MEDS ORDERED: Multivitamins 1 Tab PO SCH (09:35)
--- NOTE | 2023-11-15 10:47 | NUR ---
THIS RN NOTIFIED BY [employer] THAT PT'S HR AT 150'S. THIS RN TO ROOM TO ASSESS. THERAPY IN ROOM AND ASSISTE PT TO THE BATHROOM. PT HR 140-150'S WHILE AMBULATING. HR QUICKLY BACK DOWN TO 110-120'S ONCE PT WAS AT REST IN BED.
[2023-11-15 12:08] VITALS: BP 129/84
[2023-11-15 16:33] VITALS: BP 133/91
--- NOTE | 2023-11-15 17:49 | NUR ---
SHIFT SUMMARY PT IS A/OX 4. HAS TROUBLE FORMING SENTENCES AND LOSES TRAIN OF THOUGHT FROM TIME TO TIME. PT ABLE TO AMBULATE TO BATHROOM WITH MINIMAL ASSIST. PT TOLERATED WELL. PT WALKED AROUND UNIT FLOOR WITH DISK AND TAPE MACHINE TENDER AND TOLERATED WELL. PT WAS ON RA SATING IN MID TO HIGH 90'S. HR 100-110'S WHILE AT REST. 110-140'S ON EXCERTION. BP STABLE. NO CHANGES IN GI OR . WOUNDS ON BILATERAL FEET. FEET COOL TO TOUCH, AND PURPLE DISCOLORATION WHEN BELOW HEART LEVEL. MD AWARE. MD WAS AT [facility] AND UPDATED PT AND FAMILY MULTIPLE TIMES THROUGHOUT SHIFT. BED ALARM IN PLACE, PT IN BED ON RA, CALL LIGHT IN REACH.
--- NOTE | 2023-11-15 18:15 | NUR ---
THIS RN REVIEWED AND AGREES WITH STUDENT RN'S CHARTING AND NOTES.
[2023-11-15 23:10] VITALS: BP 166/161
[2023-11-16 03:09] VITALS: BP 103/52
[2023-11-16 04:14] VITALS: BP 126/88
[2023-11-16 05:14] LABS: Albumin, Blood 3.3 g/dL (3.4-5.0); Anion Gap 9 mmol/L (3-11); Blood Urea Nitrogen 20 mg/dL (8-24); Bun/Creatinine Ratio 27.2 (12.0-20.0); CO2, Blood 27 mmol/L (21-32); Calcium, Blood 9.2 mg/dL (8.5-10.1); Chloride, Blood 110 mmol/L (98-108); Creatinine, Blood 0.74 mg/dL (0.40-1.00); Glomerular Filtration Rate 94 (60-); Glucose, Blood 99 mg/dL (70-99); Magnesium, Blood 1.6 mg/dL (1.6-2.4); Phosphorus, Blood 3.6 mg/dL (2.5-4.9); Potassium, Blood 4.1 mmol/L (3.5-5.5); Sodium, Blood 142 mmol/L (136-145)
--- NOTE | 2023-11-16 06:00 | NUR ---
SHIFT NOTE: PT A/OX4 BUT STRUGGLES TO INITIATE SENTENCES WHEN SLEEPY. SHE IS CONTINENT AND USES THE CALL LIGHT APPROPRIATELY TO MAKE NEEDS KNOWN. SHE AMBULATES TO THE BATHROOM WITH STAFF ASSIST. HER HR ELEVATES WITH EXERTION, BUT QUICKLY RECOVERES WITH REST. DENIES CHEST PAIN/PRESSURE. SHE IS ON RA WITH SPO2>90% DENIES SOB. HER FEET ARE COOL TO THE TOUCH WITH PURPLE COLORING. CAP REFILL IS <3 SECONDS-SORES ON THE TOP OF A COUPLE TOES. SHE HAS COMPLAINED OF PAIN FROM RIB FX BUT DOES NOT WANT TO TAKE PAIN MEDICATIONS BECAUSE SHE BELIEVES IT WILL DELAY HER DISCHARGE. PT EDUCATED ON NEED TO TREAT PAIN. PAIN MEDICATION GIVEN 1 TIME T/O SHIFT-SEE EMAR. PT RESTLESS AND UNABLE TO SLEEP MOST OF THE NIGHT. SHE CLAIMS SHE NORMALLY STRUGGLES TO SLEEP. WILL CONTIUE TO MONITOR AND REPORT TO ONCOMING RN.
[2023-11-16 07:36] VITALS: BP 129/94
[2023-11-16] MEDS ORDERED: Mag Sulfate 1 GM/D5% 100ML 100 ML IV STA (09:22)
--- NOTE | 2023-11-16 09:54 | NUR ---
[employer] contacted this rn T [phone] about stress test order. this rn informed that pt does not qulify for 1 day stress test due to her weight. pt is to be npo starting at 0918 for firts portion if stress test later today since pt has already ate breakfast. notified that pt will need 2 day stress test at 0922.
--- NOTE | 2023-11-16 11:21 | NUR ---
[id number] NOTIFIED THIS RN THAT PT HAD A VERY BRIEF 40 BPM HR. THIS RN TO ROOM, PT RESTING COMFORTABLY IN RECLINER. HR AT THIS TIME AFIB 90-100'S. NOTIFIED AT 1121 OF HR. TO COME LOOK AT TELEMTRY.
[2023-11-16 11:52] VITALS: BP 126/78
[2023-11-16 15:38] VITALS: BP 134/71
--- NOTE | 2023-11-16 17:50 | NUR ---
SHIFT SUMMARY PT A/OX4 AND COOPERATIVE OF CARE. PT USING CALL LIGHT APPROPIATELY. PT HR REMAINED AFIB WITH RESTING RATES OF 90-120'S. PT HR UP TO 160 WHEN AMBULATING TO TOILET, QUICKLY RETURNS TO RESTING RATE ONCE PT SITS DOWN. THIS RN NOTIFIED OF A VERY BRIEF HR OF 40, SEE PREVIOUS NOTES. OTHER VSS THROUGHOUT SHIFT WITH O2 SATS IN THE 90'S ON RA. PT REPORTED RIB PAIN, DID NOT ENDORSE CHEST PAIN/PRESSURE. PT HAD BRIEF PERIOD OF DYSPNEA WHEN WAKING UP FROM A NAP IN RECLINER. PT BELIEVED IT HAD TO DO WITH RIB PAINB FROM LAYING IN RECLINER. PT UP TO TOILET MUTLIPLE TIMES DURING SHIFT VIA GB AND SBA OF STAFF, TOLERATED WELL. PT AHD FIRST PORTION OF STRESS TEST DONE TODAY, PT TO BE NPO AND NO CAFFIENE FOR SECOND PORTION IN THE MORNING.
[2023-11-16 20:11] VITALS: BP 149/110
[2023-11-17] VITALS (7 sets, daily range): BP systolic 114–144; BP diastolic 79–104
--- NOTE | 2023-11-17 04:57 | NUR ---
SHIFT NOTE: PT A/OX4, USES CALL LIGHT APPROPRIATELY TO MAKE NEEDS KNOWN. SHE HAS BEEN NPO SINCE MIDNIGHT FOR PLANNED SECOND PORTION OF STRESS TEST TODAY. HE HEART RATE HAS BEEN 90-110 AT REST IN AFIB. SHE HAS RIB PAIN BUT DENIES CHEST PAIN/PRESSURE. SHE IS ON RA WITH SPO2 >90%, DENIES SOB. VSS. SHE AMBULATES WITH 1 PERSONS ASSIST TO THE BATHROOM. HR GOES UP TO 130-140S BUT RETURNS TO 90-110 WITH REST. PT RESTING WITH EVEN UNLABORED RESPIRATIONS WITH CALL LIGHT IN REACH AND BED IN LOWEST POSITION.
[2023-11-17] MEDS ORDERED: Regadenoson 0.4 MG/5 ML SYRINGE ONE (08:43)
[2023-11-17] MEDS ORDERED: Caffeine Citrated 60 MG/3 ML Vial ONE (08:43)
[2023-11-17] MEDS ORDERED: Magnesium Oxide 400 MG Tab PO ONE (09:00)
--- NOTE | 2023-11-17 10:17 | NUR ---
turned over care to beverley william
--- NOTE | 2023-11-17 18:19 | NUR ---
DAY SHIFT SUMMARY - ASSUMED PT CARE @1015 PT ORIENTED X4, STUTTERED/SOFT SPEECH BUT CALM AND COOPERATIVE. AFIB ON TELE 80-170S. HR TRENDS UP WITH ACTIVITY AND RESTING HR 80-120. SOA WITH EXERTION. ON RA. DENIES CP OR PRESSURE. COMPLETED 2ND PORTION OF STRESS TEST TODAY AND PROBABLY NEARING D/C PENDING F/U AND CONTINUED IMPROVEMENT. FAMILY TO VISIT THROUGHOUT THE DAY, DOOR REMAINED OPEN AND NO CONCERNS REGARDING CONTRABAND. WALKED IN THE ROOM AND SAT IN THE CHAIR FOR MEALS. ADEQUATE URINE OUTPUT, DENIED PAIN THIS SHIFT. WILL PASS ON TO NOC SHIFT.
[2023-11-18 03:00] VITALS: BP 135/86
--- NOTE | 2023-11-18 04:51 | NUR ---
END OF SHIFT NOTE: NO ACUTE EVENTS OVERNIGHT. PT HAS REMAINED ALERT, ORIENTED X4. ABLE TO CALL APPROPRIATELY & COMMUNICATE NEEDS W/ STAFF. HR 110-120'S AT REST, AFIB ON TELE. SBP 110-130'S, DENIES CHEST PAIN/PRESSURE. SPO2 >95% ON RA. AFEBRILE. C/O "STERNAL PAIN" THIS SHIFT, MEDICATED PER EMAR. UP TO BATHROOM W/ SBA. REPOSITIONING INDEPENDENTLY IN BED OVERNIGHT. FAMILY AT BEDSIDE AT START OF SHIFT. NO OTHER NEEDS AT THIS TIME. PT RESTING IN BED, CALL LIGHT IN REACH.
[2023-11-18 07:34] VITALS: BP 120/79
[2023-11-18] MEDS ORDERED: Acetaminophen650 M1 PO (11:51)
[2023-11-18] MEDS ORDERED: AMIODARONE HCL400 M2 PO (11:52)
[2023-11-18] MEDS ORDERED: BISA5EC PO (11:53)
[2023-11-18] MEDS ORDERED: JARDIANCE10 MG PO (11:53)
[2023-11-18] MEDS ORDERED: MIRALAX17 GM PO (11:54)
[2023-11-18] MEDS ORDERED: DULCOLAX400 MG/5 M PO (11:54)
[2023-11-18] MEDS ORDERED: SPIR25 PO (11:56)
[2023-11-18] MEDS ORDERED: METAMUCIL POWD798 GM PO (11:56)
[2023-11-18] MEDS ORDERED: [UNRECOGNIZED DRUG - OTHER] BOTHEYES (11:59)
--- NOTE | 2023-11-18 12:47 | NUR ---
DISCHARGE: PT HAS BEEN CLEARED FOR DISCHARGE HOME BY PROVIDER. ALL IV ACCESS HAS BEEN DC'd WNL. PT DRESSES SELF. DC PAPERWORK AND INSTRUCTIONS PROVIDED, PT V/U. PT ESCORTED FROM UNIT VIA W/C W/OUT INCIDENT.
== END 2023-11-18 12:22 | disposition home or self-care (01) | DRG 853 ==
LOC: ER 17:49 → ICUE 21:19 → PCU 21:19 → MEDS 10-24 12:36 → ICUE 10-26 05:11 → PCU 11-02 14:31 → ICUE 11-03 01:41 → PCU 11-05 17:38 → ICUE 11-07 17:15 → PCU 11-13 16:47
PROVIDERS: Family Medicine; Hospitalist; Internal Medicine; Internal Medicine Critical Care Medicine; Nurse Practitioner Acute Care; Student in an Organized Health Care Education/Training Program; ADMIT Internal Medicine
PROC: 5A1945Z Respiratory Ventilation, 24-96 Consecutive Hours (ICD-10-PCS; principal; 2023-10-26)
PROC: 0BH17EZ Insertion of Endotracheal Airway into Trachea, Via Natural or Artificial Opening (ICD-10-PCS; 2023-10-26)
PROC: 3E033XZ Introduction of Vasopressor into Peripheral Vein, Percutaneous Approach (ICD-10-PCS; 2023-10-26)
PROC: 04HY32Z Insertion of Monitoring Device into Lower Artery, Percutaneous Approach (ICD-10-PCS; 2023-10-26)
PROC: 4A133B1 Monitoring of Arterial Pressure, Peripheral, Percutaneous Approach (ICD-10-PCS; 2023-10-26)
PROC: 4A133J1 Monitoring of Arterial Pulse, Peripheral, Percutaneous Approach (ICD-10-PCS; 2023-10-26)
PROC: 0DH67UZ Insertion of Feeding Device into Stomach, Via Natural or Artificial Opening (ICD-10-PCS; 2023-10-29)
PROC: 5A09357 Assistance with Respiratory Ventilation, Less than 24 Consecutive Hours, Continuous Positive Airway Pressure (ICD-10-PCS; 2023-10-30)
PROC: 5A0945A Assistance with Respiratory Ventilation, 24-96 Consecutive Hours, High Flow/Velocity Cannula (ICD-10-PCS; 2023-10-30)
PROC: 0WCQ8ZZ Extirpation of Matter from Respiratory Tract, Via Natural or Artificial Opening Endoscopic (ICD-10-PCS; 2023-11-07)
PROC: 0BH17EZ Insertion of Endotracheal Airway into Trachea, Via Natural or Artificial Opening (ICD-10-PCS; 2023-11-07)
PROC: 5A1945Z Respiratory Ventilation, 24-96 Consecutive Hours (ICD-10-PCS; 2023-11-07)
PROC: 4A133R1 Monitoring of Arterial Saturation, Peripheral, Percutaneous Approach (ICD-10-PCS; 2023-11-12)
DX: A41.51 Sepsis due to Escherichia coli [E. coli] (principal); I46.8 Cardiac arrest due to other underlying condition; I50.31 Acute diastolic (congestive) heart failure; J96.01 Acute respiratory failure with hypoxia; K66.1 Hemoperitoneum; I49.01 Ventricular fibrillation; J15.1 Pneumonia due to Pseudomonas; S22.41XA Multiple fractures of ribs, right side, initial encounter for closed fracture; N17.9 Acute kidney failure, unspecified; J90 Pleural effusion, not elsewhere classified; N39.0 Urinary tract infection, site not specified; D62 Acute posthemorrhagic anemia; I48.20 Chronic atrial fibrillation, unspecified; J45.909 Unspecified asthma, uncomplicated; Z66 Do not resuscitate; Z51.5 Encounter for palliative care; I27.20 Pulmonary hypertension, unspecified; E05.00 Thyrotoxicosis with diffuse goiter without thyrotoxic crisis or storm; E66.9 Obesity, unspecified; T17.990A Other foreign object in respiratory tract, part unspecified in causing asphyxiation, initial encounter; R73.03 Prediabetes; E05.90 Thyrotoxicosis, unspecified without thyrotoxic crisis or storm; F15.10 Other stimulant abuse, uncomplicated; I73.00 Raynaud's syndrome without gangrene; X58.XXXA Exposure to other specified factors, initial encounter; B96.89 Other specified bacterial agents as the cause of diseases classified elsewhere; Z71.51 Drug abuse counseling and surveillance of drug abuser; F41.9 Anxiety disorder, unspecified; M10.9 Gout, unspecified; I73.9 Peripheral vascular disease, unspecified; E03.9 Hypothyroidism, unspecified; G40.909 Epilepsy, unspecified, not intractable, without status epilepticus; Z79.01 Long term (current) use of anticoagulants; Z79.899 Other long term (current) drug therapy; R74.01 Elevation of levels of liver transaminase levels; Z87.891 Personal history of nicotine dependence; Z68.29 Body mass index [BMI] 29.0-29.9, adult
CPT/HCPCS: 31500; 31720; 36415; 36556; 36569; 36600; 51702; 70450; 71045; 71260; 74174; 74176; 76770; 78452; 80048; 80053; 80069; 80076; 81001; 82550; 82552; 82570; 82803; 82947; 83605; 83735; 83880; 84100; 84132; 84145; 84156; 84300; 84443; 84484; 84540; 85014; 85018; 85025; 85379; 85610; 86160; 87040; 87070; 87077; 87086; 87106; 87186; 87205; 92526; 92610; 92950; 93005; 93010; 93017; 93306; 93308; 93321; 93922; 93925; 94002; 94003; 94640; 94660; 94664; 94667; 94668; 94760; 94762; 96361; 96365; 97110; 97116; 97162; 97166; 97168; 97530; 97535; 99284-25; A9270; A9500; C1751; C9113; J0171; J0282; J0696; J0706; J1160; J1650; J1940; J2060; J2250; J2270; J2405; J2543; J2704; J2765; J2785; J3010; J3370; J3475; J3480; J7030; J7040; J7050; J7060; J7120; P9047; Q9967

== ENCOUNTER → 2023-10-22 | Outpatient (CLI) | payer OTHER ==
[~2023-10-22] MED LIST changes: +ACET325 PO; +ALLO100 PO; +AMIODARONE HCL400 M2 PO; +Acetaminophen650 M1 PO; +BISA5EC PO; +CEFP200 PO; +CEPH250A PO; +COLCHICINE0.6 MG PO; +DILT120 PO; +DILT180 PO; +DULCOLAX400 MG/5 M PO; +ELIQUIS5 M4 PO; +HYDHCL25 PO; +Isosorbide Mono30 MG PO; +JARDIANCE10 MG PO; +Lisinopril2.5 MG PO; +METAMUCIL POWD798 GM PO; +METHIMAZOLE5 M1 PO; -METO100ER PO; +MIRALAX17 GM PO; +PHOS-NAK PO; +POTCHL20ER PO; +PREG25 PO; +Phentermine HCl15 MG PO; +Prednisone10 MG PO; +SPIR25 PO; +TOPROL XL200 MG PO; +VISBIOME 112.51 EACH PO; +[UNRECOGNIZED DRUG - OTHER] BOTHEYES
[2023-10-22 16:09] LABS: BASOPHILS ABSOLUTE AUTO 0.06 K/mm3 (0.00-0.23); BASOPHILS PERCENT AUTO 1 % (0-2); EOSINOPHILS ABSOLUTE AUTO 0.07 K/mm3 (0.00-0.68); EOSINOPHILS PERCENT AUTO 1 % (0-6); Hemoglobin 15.8 g/dL (11.5-16.0); IMMATURE GRAN ABSOLUTE AUTO 0.02 K/mm3 (0.00-0.10); IMMATURE GRAN PERCENT AUTO 0 % (0-1); LYMPHOCYTES ABSOLUTE AUTO 1.77 K/mm3 (0.84-5.20); LYMPHOCYTES PERCENT AUTO 23 % (21-46); MONOCYTES ABSOLUTE AUTO 0.73 K/mm3 (0.16-1.47); MONOCYTES PERCENT AUTO 9 % (4-13); Mean Corpuscular HGB 31.3 pg (26.0-34.0); Mean Corpuscular HGB Conc 32.9 g/dL (31.5-36.5); Mean Corpuscular Volume 95 fL (80-100); Mean Platelet Volume 10.4 fL (9.1-12.4); NEUTROPHILS ABSOLUTE AUTO 5.21 K/mm3 (1.96-9.15); NEUTROPHILS PERCENT AUTO 66 % (41-73); Platelet Count 239 K/mm3 (150-400); RDW Coefficient Variation 15.4 % (11.7-14.2); RDW Standard Deviation 51.3 fL (35.1-46.3); Red Blood Cell Count 5.04 M/mm3 (3.80-5.20); White Blood Cell Count 7.86 K/mm3 (4.00-11.30)
[2023-10-22 16:28] LABS: Albumin, Blood 3.5 g/dL (3.4-5.0); Albumin/Globulin Ratio 1.1 (0.8-1.8); Bilirubin, Total 2.1 mg/dL (0.1-1.0); Bun/Creatinine Ratio 27.2 (12.0-20.0); Calcium, Blood 9.2 mg/dL (8.5-10.1); Creatinine, Blood 3.34 mg/dL (0.40-1.00); Free Thyroxine 1.2 ng/dL (0.70-1.60); Globulin, Blood 3.1 g/dL (2.2-4.0); Potassium, Blood 3.9 mmol/L (3.5-5.5); Thyroid Stimulating Hormone 9.304 uIU/mL (0.360-4.800); Total Protein, Blood 6.6 g/dL (6.4-8.2)
== END ==
LOC: LAB SHORT 16:04 → LAB 16:04
PROVIDERS: Physician Assistant
DX: R53.83 Other fatigue (principal); R00.0 Tachycardia, unspecified; R58 Hemorrhage, not elsewhere classified
CPT/HCPCS: 80053; 84439; 84443; 84481; 85025

== ENCOUNTER → 2024-01-07 | Outpatient (CLI) | payer OTHER ==
[~2024-01-07] MED LIST changes: +AMIODARONE HCL400 M2 PO; +Acetaminophen650 M1 PO; +BISA5EC PO; +CEPH250A PO; +DULCOLAX400 MG/5 M PO; +JARDIANCE10 MG PO; +METAMUCIL POWD798 GM PO; +MIRALAX17 GM PO; +SPIR25 PO; +[UNRECOGNIZED DRUG - OTHER] BOTHEYES
[2024-01-07 19:17] LABS: BASOPHILS ABSOLUTE AUTO 0.08 K/mm3 (0.00-0.23); BASOPHILS PERCENT AUTO 1 % (0-2); EOSINOPHILS ABSOLUTE AUTO 0.26 K/mm3 (0.00-0.68); EOSINOPHILS PERCENT AUTO 3 % (0-6); Hematocrit 50.5 % (33.0-51.0); Hemoglobin 15.6 g/dL (11.5-16.0); IMMATURE GRAN ABSOLUTE AUTO 0.03 K/mm3 (0.00-0.10); IMMATURE GRAN PERCENT AUTO 0 % (0-1); LYMPHOCYTES ABSOLUTE AUTO 2.29 K/mm3 (0.84-5.20); LYMPHOCYTES PERCENT AUTO 28 % (21-46); MONOCYTES ABSOLUTE AUTO 0.64 K/mm3 (0.16-1.47); MONOCYTES PERCENT AUTO 8 % (4-13); Mean Corpuscular HGB Conc 30.9 g/dL (31.5-36.5); Mean Corpuscular Volume 94 fL (80-100); Mean Platelet Volume 10.2 fL (9.1-12.4); NEUTROPHILS ABSOLUTE AUTO 4.78 K/mm3 (1.96-9.15); NEUTROPHILS PERCENT AUTO 59 % (41-73); Platelet Count 312 K/mm3 (150-400); RDW Coefficient Variation 15.5 % (11.7-14.2); RDW Standard Deviation 53.4 fL (35.1-46.3); Red Blood Cell Count 5.38 M/mm3 (3.80-5.20); White Blood Cell Count 8.08 K/mm3 (4.00-11.30)
[2024-01-07 19:30] LABS: Albumin, Blood 4.5 g/dL (3.4-5.0); Albumin/Globulin Ratio 1.1 (0.8-1.8); Bilirubin, Direct 0.2 mg/dL (0.0-0.3); Bilirubin, Indirect 1.3 mg/dL (0.1-0.7); Bilirubin, Total 1.5 mg/dL (0.1-1.0); Calcium, Blood 9.5 mg/dL (8.5-10.1); Creatinine, Blood 1.78 mg/dL (0.40-1.00); Globulin, Blood 4.2 g/dL (2.2-4.0); Potassium, Blood 4.7 mmol/L (3.5-5.5); Total Protein, Blood 8.7 g/dL (6.4-8.2)
[2024-01-07 19:42] LABS: Free Thyroxine 0.88 ng/dL (0.70-1.60)
[2024-01-07 19:50] LABS: Thyroid Stimulating Hormone 11.5 uIU/mL (0.360-4.800); Triiodothyronine, Free 2.33 pg/mL (2.18-3.98)
== END ==
LOC: LAB 18:14 → LAB SHORT 18:14
PROVIDERS: Hospitalist; Internal Medicine Endocrinology, Diabetes & Metabolism
DX: I50.32 Chronic diastolic (congestive) heart failure (principal); E05.00 Thyrotoxicosis with diffuse goiter without thyrotoxic crisis or storm
CPT/HCPCS: 80053; 82248; 83880; 84439; 84443; 84481; 85025

== ENCOUNTER → 2024-07-24 | Outpatient (CLI) | payer OTHER ==
[~2024-07-24] MED LIST changes: +DAPAGLIFLOZIN10 MG PO; +LEVSOD112 PO
== END ==
LOC: LAB SHORT 17:32 → LAB 17:32
DX: N39.0 Urinary tract infection, site not specified (principal)
CPT/HCPCS: 87086

== ENCOUNTER 2024-08-04 22:40 | Inpatient (IN) | payer OTHER ==
[~2024-08-04] VITALS: Ht 172.7 cm; Wt 84.4 kg
[~2024-08-04 22:40] MED LIST changes: -DAPAGLIFLOZIN10 MG PO; +Etomidate 2MG / ML 10ML Vial IV ONE; -LEVSOD112 PO; +LORazepam 2 MG/ML 1ML Injection IV ONE; +Rocuronium Bromide 10 MG/ML 5ML Injection IV ONE; +SuccINYLCHOLINE Chloride 100 MG/5 ML 5MLSYR IV ONE
[2024-08-04 23:09] LABS: BASOPHILS ABSOLUTE AUTO 0.07 K/mm3 (0.00-0.23); BASOPHILS PERCENT AUTO 1 % (0-2); EOSINOPHILS ABSOLUTE AUTO 0.07 K/mm3 (0.00-0.68); EOSINOPHILS PERCENT AUTO 1 % (0-6); Hematocrit 51.1 % (33.0-51.0); Hemoglobin 15.6 g/dL (11.5-16.0); IMMATURE GRAN ABSOLUTE AUTO 0.03 K/mm3 (0.00-0.10); IMMATURE GRAN PERCENT AUTO 0 % (0-1); LYMPHOCYTES PERCENT AUTO 27 % (21-46); MONOCYTES ABSOLUTE AUTO 0.94 K/mm3 (0.16-1.47); MONOCYTES PERCENT AUTO 14 % (4-13); Mean Corpuscular HGB 27.2 pg (26.0-34.0); Mean Corpuscular HGB Conc 30.5 g/dL (31.5-36.5); Mean Corpuscular Volume 89 fL (80-100); Mean Platelet Volume 10.5 fL (9.1-12.4); NEUTROPHILS ABSOLUTE AUTO 3.78 K/mm3 (1.96-9.15); NEUTROPHILS PERCENT AUTO 57 % (41-73); NRBC ABSOLUTE 0.02 K/mm3 (0.00-0.02); NRBC Auto 0.3 /100 WBC (0.0-0.2); Platelet Count 231 K/mm3 (150-400); RDW Standard Deviation 59.7 fL (35.1-46.3); Red Blood Cell Count 5.73 M/mm3 (3.80-5.20); White Blood Cell Count 6.69 K/mm3 (4.00-11.30)
[2024-08-04 23:29] LABS: D-Dimer, Quantitative 3.05 mg/L FEU (0.00-0.52); International Normalized Ratio 1.3; Prothrombin Time Results 13.6 Sec (9.7-11.5)
[2024-08-04 23:42] LABS: Albumin, Blood 3.2 g/dL (3.4-5.0); Albumin/Globulin Ratio 0.8 (0.8-1.8); Bilirubin, Total 4.6 mg/dL (0.1-1.0); Bun/Creatinine Ratio 17.4 (12.0-20.0); Calcium, Blood 9.2 mg/dL (8.5-10.1); Creatinine, Blood 1.32 mg/dL (0.40-1.00); Globulin, Blood 4.2 g/dL (2.2-4.0); Magnesium, Blood 2.1 mg/dL (1.6-2.4); Phosphorus, Blood 3.2 mg/dL (2.5-4.9); Potassium, Blood 5.9 mmol/L (3.5-5.5); Thyroid Stimulating Hormone 7.36 uIU/mL (0.360-4.800); Total Protein, Blood 7.4 g/dL (6.4-8.2)
[2024-08-04 23:49] LABS: CORONAVIRUS COVID-19 AG Negative (NEGATIVE); INFLUENZA A AG Negative (NEGATIVE); INFLUENZA B AG Negative (NEGATIVE)
[2024-08-05] VITALS (71 sets, daily range): BP systolic 54–112; BP diastolic 28–90
[2024-08-05] MEDS ORDERED: CefTRIAXone Sodium 1,000 MG in NS 50 ML IV ONE (00:10)
[2024-08-05] MEDS ORDERED: Azithromycin 500 MG in NS 250 ML IV ONE (00:10)
[2024-08-05] MEDS ORDERED: FLU VACC TS2024-25(6MOS UP)/PF 45 MCG/0.5 ML SYRINGE IM ONE (00:20)
[2024-08-05] MEDS ORDERED: Ondansetron HCl 2 MG / ML 2ML Vial IV PRN (00:20)
[2024-08-05] MEDS ORDERED: Insulin Regular 100 Unit/ML 1ML Dose IV ONE (00:25)
[2024-08-05] MEDS ORDERED: Metoprolol Tartrate 1 MG/ML 5 ML VIAL IV PRN (00:40)
[2024-08-05] MEDS ORDERED: HyDROXyzine HCl 25 MG Tab PO PRN (00:40)
[2024-08-05] MEDS ORDERED: Dextrose 50% 50 ML Vial IV ONE (01:00)
[2024-08-05 01:08] LABS: Bilirubin, Direct 2.8 mg/dL (0.0-0.3); Bilirubin, Indirect 1.5 mg/dL (0.1-0.7); Bilirubin, Total 4.3 mg/dL (0.1-1.0)
[2024-08-05] MEDS ORDERED: LORazepam 2 MG/ML 1ML Injection ONE (01:53)
[2024-08-05] MEDS ORDERED: Vasopressin 20 UNITS in NS 100 ML IV SCH (02:55)
[2024-08-05] MEDS ORDERED: Phenylephrine HCl in 0.9% NaCl 250 ML IV SCH (02:55)
[2024-08-05 02:59] LABS: Source, Urine Clean Catch
[2024-08-05 03:07] LABS: PCO2 Arterial 28.3 mmHg (35-45); PO2 Arterial 222 mmHg (80-100)
[2024-08-05 03:08] LABS: pH Blood Arterial 7.18 (7.35-7.45)
[2024-08-05 03:09] LABS: Blood, Urine 5+ (Neg); Glucose Qualitative, Urine 4+ (Neg); Ketones, Urine Neg (Neg); Leukocyte Esterase, Urine 3+ (Neg); Nitrite, Urine Neg (Neg); Protein, Urine 3+ (Neg); Urobilinogen, Urine 2+ (Normal)
[2024-08-05 03:16] LABS: Bilirubin, Urine 1+ (Neg)
[2024-08-05 03:17] LABS: Appearance, Urine Hazy (Clear); Color, Urine Yellow (P-Yellow)
[2024-08-05 03:18] LABS: Bacteria Mod /hpf; Red Blood Cells, Urine 0-2 /hpf (0-2); Squamous Epithelial Cells Mod /hpf (Few); White Blood Cells, Urine 25-50 /hpf (0-5); Yeast/Fungi Urine Many /hpf
[2024-08-05] MEDS ORDERED: NS 500 ML IV ONE (03:18)
[2024-08-05] MEDS ORDERED: NS 500 ML IV SCH (03:20)
[2024-08-05 03:21] LABS: U Amphetamine Screen Not Detected; U Barbituate Screen Not Detected; U Benzodiazapine Screen Not Detected; U Buprenorphine Screen Not Detected; U Cannabinoids Screen DETECTED; U Cocaine Screen Not Detected; U Methadone Screen Not Detected; U Methamphetamine Screen Not Detected; U Opiates Screen Not Detected; U Oxycodone Screen Not Detected; U Phencyclidine Screen Not Detected
[2024-08-05 03:22] LABS: BASOPHILS ABSOLUTE AUTO 0.06 K/mm3 (0.00-0.23); BASOPHILS PERCENT AUTO 1 % (0-2); EOSINOPHILS ABSOLUTE AUTO 0.04 K/mm3 (0.00-0.68); EOSINOPHILS PERCENT AUTO 1 % (0-6); Hematocrit 51.7 % (33.0-51.0); Hemoglobin 15.4 g/dL (11.5-16.0); IMMATURE GRAN ABSOLUTE AUTO 0.08 K/mm3 (0.00-0.10); IMMATURE GRAN PERCENT AUTO 1 % (0-1); LYMPHOCYTES ABSOLUTE AUTO 1.98 K/mm3 (0.84-5.20); LYMPHOCYTES PERCENT AUTO 30 % (21-46); MONOCYTES ABSOLUTE AUTO 0.83 K/mm3 (0.16-1.47); MONOCYTES PERCENT AUTO 13 % (4-13); Mean Corpuscular HGB 27.2 pg (26.0-34.0); Mean Corpuscular HGB Conc 29.8 g/dL (31.5-36.5); Mean Corpuscular Volume 91 fL (80-100); NEUTROPHILS ABSOLUTE AUTO 3.59 K/mm3 (1.96-9.15); NEUTROPHILS PERCENT AUTO 55 % (41-73); Platelet Count 209 K/mm3 (150-400); RDW Coefficient Variation 19.2 % (11.7-14.2); RDW Standard Deviation 61.1 fL (35.1-46.3); Red Blood Cell Count 5.67 M/mm3 (3.80-5.20); White Blood Cell Count 6.58 K/mm3 (4.00-11.30)
[2024-08-05] MEDS ORDERED: Sodium Bicarb 8.4% 1 MEQ/ML 50 ML Vial IV ONE (03:35)
[2024-08-05 03:37] LABS: PCO2 Arterial 26.4 mmHg (35-45); PO2 Arterial 261 mmHg (80-100); pH Blood Arterial 7.21 (7.35-7.45)
[2024-08-05 03:38] LABS: Albumin, Blood 2.9 g/dL (3.4-5.0); Albumin/Globulin Ratio 0.8 (0.8-1.8); Bilirubin, Total 3.7 mg/dL (0.1-1.0); Bun/Creatinine Ratio 18.2 (12.0-20.0); Calcium, Blood 8.8 mg/dL (8.5-10.1); Creatinine, Blood 1.37 mg/dL (0.40-1.00); Globulin, Blood 3.8 g/dL (2.2-4.0); Magnesium, Blood 2.3 mg/dL (1.6-2.4); Potassium, Blood 5.3 mmol/L (3.5-5.5); Total Protein, Blood 6.7 g/dL (6.4-8.2)
[2024-08-05] MEDS ORDERED: GABA100 PO (03:59)
[2024-08-05] MEDS ORDERED: HYDHCL25 PO (04:00)
[2024-08-05] MEDS ORDERED: DAPAGLIFLOZIN10 MG PO (04:03)
[2024-08-05] MEDS ORDERED: CEPH250A PO (04:04)
[2024-08-05] MEDS ORDERED: LEVSOD112 PO (04:07)
[2024-08-05] MEDS ORDERED: propofoL 100 ML IV SCH (04:45)
[2024-08-05] MEDS ORDERED: Pantoprazole Sodium 40 MG Injection IV SCH (06:00)
[2024-08-05] MEDS ORDERED: Levothyroxine Sodium 0.125 MG Tab PO SCH (06:00)
[2024-08-05] MEDS ORDERED: Cefepime HCl 2,000 MG in NS 100 ML IV SCH (06:01)
--- NOTE | 2024-08-05 07:20 | NUR ---
PATIENT TO ICU 10 FROM ER AT APPROX 0245. PATIENT INTUBATED ON NO SEDATION AND UNRESPONSIVE. BP HYPOTENSIVE WITH LEVOPHED INFUSING AT 25 MCG/MIN. AT BEDSIDE AND CENTRAL LINE INSERTED. VASO STARTED TO MAINTAIN MAP >65. OG TO LIS, WITH MINIMAL PINK BILE OUTPUT. TEMP ADAMES PLACED IN ER PATENT AND DRAINING MINIMAL RC URINE TO GRAVITY. TOOK PATIENT TO CT AT APPROX 0530. AT BEDSIDE. CALL LIGHT IN REACH
[2024-08-05] MEDS ORDERED: Cetylpyridinium Chloride 1 EA MISC MT SCH (08:00)
[2024-08-05] MEDS ORDERED: Allopurinol 100 MG Tab PO SCH (09:00)
[2024-08-05] MEDS ORDERED: Apixaban 5 MG Tab PO SCH (09:00)
[2024-08-05] MEDS ORDERED: Bumetanide 1 MG Tab PO SCH (09:00)
[2024-08-05] MEDS ORDERED: Bumetanide 0.25 MG/ML 4ML ViaL IV SCH (09:00)
[2024-08-05] MEDS ORDERED: Empagliflozin 10 MG TAB PO SCH (09:00)
[2024-08-05] MEDS ORDERED: Metoprolol Succinate 50 MG TABCR PO SCH (09:00)
[2024-08-05 10:03] LABS: Base Excess Venous -7.4 mmol/L; Bicarbonate Venous 18.6 mmol/L (24.0-30.0); PCO2 Venous 38.3 mmHg (38-42)
[2024-08-05 11:58] LABS: Triglycerides 112 mg/dL (30-160)
[2024-08-05] MEDS ORDERED: Hydrogen Peroxide 1.5 % Solution MT SCH (12:00)
--- NOTE | 2024-08-05 18:38 | NUR ---
SHIFT SUMMARY NO ACUTE CHANGES THIS SHIFT. PT REMAINS INTUBATED AND SEDATED. VENT SETTINGS AC 18, TV 400, PEEP 5, FIO2 80%. PT WITH MINIMAL SECRETIONS THIS SHIFT. PT SEDATED WITH PROPOFOL AT 20 MCG/KG/MIN. PT GRIMMACES TO NOXIOUS STIMULI, BUT DOES NOT FOLLOW ANY COMMANDS. PT WITHDRAWS EXTREMITIES TO NOXIOUS STIMULI. PT WITH HX OF DARWIN, UNABLE TO OBTAIN RADIAL OR PEDAL PULSES WITH DOPPLER THIS SHIFT. SEE PHOTOS IN CHART. DR LAGUNA AWARE, ARTERIAL DUPLEX DONE THIS SHIFT. PT REMAINS HYPOTENSIVE. LEVOPHED INFUSING AT 12 MCG/MIN. CENTRAL LINE TO VAJ C/D/I. OGT IN PLACE WITH TF STARTED THIS SHIFT. PT WITH INCONTINENT BM'S THIS SHIFT. ADAMES TEMP PROBE IN PLACE WITH DARK YELLOW URINE OUTPUT NOTED. SBW RESTRAINTS IN PLACE. MULTIPLE FAMILY MEMBERS AT BEDSIDE THROUGHOUT THE DAY. WILL CONTINUE TO MONITOR AND REPORT OFF TO ONCOMING RN.
[2024-08-05] MEDS ORDERED: Gabapentin 100 MG Cap PO SCH (21:00)
[2024-08-06] VITALS (80 sets, daily range): BP systolic 76–142; BP diastolic 46–132
[2024-08-06 03:59] LABS: Magnesium, Blood 2.1 mg/dL (1.6-2.4)
[2024-08-06 04:00] LABS: Phosphorus, Blood 4.5 mg/dL (2.5-4.9)
--- NOTE | 2024-08-06 05:57 | NUR ---
SHIFT SUMMARY PT INTUBATED/SEDATED. RESPONDS TO PAINFUL STIMULI, GRIMACES AND WITHDRAWS WHEN STIMULATED. NOT ABLE TO FOLLOW COMMANDS AT THIS TIME. PROPOFOL INFUSING AT 20 MCG/KG/MIN. VENT SETTINGS- ACVC 18/400/5/80%, SATS > 94%. TOLERATING VENT. L/S CLEAR T/O. ON WATCH TRAIN INSPECTOR, AFIB W/ HR 120-130'S. MAPS > 65, LEVO INFUSING AT 10 MCG/MIN. AMIO INFUSING AT 0.5 MG/MIN. PULSES PRESENT BUT FAINT IN ALL EXTREMITIES. BL HAND AND FEET ARE PURPLE/DUSKY AND COOL TO TOUCH, PT HAS HX OF RAYNAUDS. TEMP ADAMES DRAINING TO GRAVITY, MINIMAL UOP, PROVIDER AWARE. NO BM THIS SHIFT, TF RUNNING AT 10 ML/H TO OGT. RIJ DRESSING C/D/I. CHG BATH DONE THIS SHIFT.
[2024-08-06] MEDS ORDERED: Protein Supplement 30 ML UD PT SCH ×2 (09:00→18:00)
[2024-08-06 09:21] LABS: BASOPHILS ABSOLUTE AUTO 0.11 K/mm3 (0.00-0.23); BASOPHILS PERCENT AUTO 1 % (0-2); EOSINOPHILS ABSOLUTE AUTO 0.03 K/mm3 (0.00-0.68); EOSINOPHILS PERCENT AUTO 0 % (0-6); Hematocrit 50.4 % (33.0-51.0); Hemoglobin 16.2 g/dL (11.5-16.0); IMMATURE GRAN PERCENT AUTO 1 % (0-1); LYMPHOCYTES ABSOLUTE AUTO 2.33 K/mm3 (0.84-5.20); LYMPHOCYTES PERCENT AUTO 22 % (21-46); MONOCYTES PERCENT AUTO 16 % (4-13); Mean Corpuscular HGB 27.6 pg (26.0-34.0); Mean Corpuscular HGB Conc 32.1 g/dL (31.5-36.5); Mean Platelet Volume 10.2 fL (9.1-12.4); NEUTROPHILS ABSOLUTE AUTO 6.31 K/mm3 (1.96-9.15); NEUTROPHILS PERCENT AUTO 60 % (41-73); NRBC ABSOLUTE 0.03 K/mm3 (0.00-0.02); NRBC Auto 0.3 /100 WBC (0.0-0.2); Platelet Count 318 K/mm3 (150-400); RDW Coefficient Variation 19.9 % (11.7-14.2); RDW Standard Deviation 57.3 fL (35.1-46.3); Red Blood Cell Count 5.87 M/mm3 (3.80-5.20); White Blood Cell Count 10.58 K/mm3 (4.00-11.30)
[2024-08-06 09:29] LABS: Albumin, Blood 2.7 g/dL (3.4-5.0); Albumin/Globulin Ratio 0.7 (0.8-1.8); Bun/Creatinine Ratio 15.3 (12.0-20.0); Calcium, Blood 9.1 mg/dL (8.5-10.1); Creatinine, Blood 2.22 mg/dL (0.40-1.00); Globulin, Blood 3.7 g/dL (2.2-4.0); Potassium, Blood 5.7 mmol/L (3.5-5.5); Total Protein, Blood 6.4 g/dL (6.4-8.2)
[2024-08-06 09:42] LABS: Mean Corpuscular Volume 86 fL (80-100)
[2024-08-06] MEDS ORDERED: Sodium Zirconium Cyclosilicate 10 GM Packet PO SCH (10:00)
[2024-08-06] MEDS ORDERED: Furosemide 10 MG/ML 4ML Vial IV SCH (10:00)
[2024-08-06] MEDS ORDERED: Vancomycin HCL 2,000 MG in NS 500 ML IV ONE (10:55)
[2024-08-06] MEDS ORDERED: Amiodarone HCl 200 MG Tab PO SCH (17:00)
--- NOTE | 2024-08-06 17:27 | NUR ---
SHIFT SUMMARY NO ACUTE CHANGES THIS SHIFT. PT REMAINS INTUBATED AND SEDATED. PT VENT SETTINGS CHANGED BY DR LAGUNA TO AC/VC 18, TV 400, PEEP 7, FIO2 80%. PT WITH SCANT ETT SECRETIONS THIS SHIFT. PT SEDATED WITH PROPOFOL AT 30 MCG/KG/MIN. PT DOES NOT FOLLOW COMMANDS, BUT PT EASILY ROUSABLE TO NOXIOUS STIMULI. OGT REMAINS IN PLACE WITH TF INFUSING AT 45 ML/HR GOAL RATE. CENTRAL LINE TO RIJ C/D/I. LEVOPHED TITRATED OFF THIS SHIFT. CARDIZEM GTT INFUSING AT 5 MG/HR. PT REMAINS WITH HR AFIB 130-140'S. VS OTHERWISE STABLE. ADAMES TEMP PROBE REMAINS IN PLACE WITH YELLOW URINE OUTPUT NOTED. PT SKIN ASSESSMENT UNCHANGED. MULTIPLE FAMILY MEMBERS AT BEDSIDE THROUGHOUT THE SHIFT. SBW RESTRAINTS REMAIN IN PLACE. WILL CONTINUE TO MONITOR AND REPORT OFF TO ONCOMING RN.
[2024-08-06 21:20] LABS: Bun/Creatinine Ratio 18.9 (12.0-20.0); Calcium, Blood 8.6 mg/dL (8.5-10.1); Creatinine, Blood 2.12 mg/dL (0.40-1.00); Potassium, Blood 4.2 mmol/L (3.5-5.5)
[2024-08-06] MEDS ORDERED: FentaNYL Citrate 50 MCG/ML 2 ML Injection IV PRN (23:20)
[2024-08-06] MEDS ORDERED: Midazolam HCl 1MG / ML 2ML Vial IV PRN (23:20)
[2024-08-07] VITALS (86 sets, daily range): BP systolic 78–117; BP diastolic 56–82
[2024-08-07 03:58] LABS: Magnesium, Blood 1.8 mg/dL (1.6-2.4); Phosphorus, Blood 3.5 mg/dL (2.5-4.9); Vancomycin, Random 21.8 ug/mL
--- NOTE | 2024-08-07 05:28 | NUR ---
PT INTUBATED/SEDATED. HAS BEEN BECOMING INCREASINGLY ALERT T/O THIS SHIFT. PT BECOMES AGITATED QUICKLY, ATTEMPTS TO SIT UP IN BED, BITES TUBE. NOT REDIRECTABLE, NOT FOLLOWING COMMANDS. PROPOFOL INCREASED TO 40 MCG/KG/MIN WITH LITTLE IMPROVEMENT. PROVIDER NOTIFIED, PRNS ADDED ADJUNCTS. ON EXCHANGE TELLER, AFIB HR 120-130'S ON DILT GTT INFUSING AT 10MG/H. MAPS > 65. VENT SETTINGS- 18/400/7/55%, SATS > 94%. L/S CLEAR T/O. NO BM THIS SHIFT. ADAMES DRAINING TO GRAVITY, GOOD UOP NOTED T/O SHIFT. NO WORSENING SKIN ISSUES. AFEBRILE. RIJ DRESSING C/D/I. TF RUNNING AT GOAL OF 45 ML/H.
[2024-08-07 07:41] LABS: Bun/Creatinine Ratio 21.4 (12.0-20.0); Calcium, Blood 8.6 mg/dL (8.5-10.1); Creatinine, Blood 1.96 mg/dL (0.40-1.00); Potassium, Blood 3.6 mmol/L (3.5-5.5)
[2024-08-07] MEDS ORDERED: Allopurinol 100 MG Tab PO SCH (09:00)
[2024-08-07] MEDS ORDERED: Vancomycin HCL 1,500 MG in NS 250 ML IV SCH (12:00)
--- NOTE | 2024-08-07 16:24 | NUR ---
SBT PROPOFOL PLACED ON SB AT 1455. PT ON PRESSURE SUPPORT 01/25, FIO2 45%. PT INCREASINGLY AGITATED AND RESTLESS, BUT TAKING GOOD VOLUMES WITH VENT. PT TURNED TOWARDS VOICE, BUT DID NOT SQUEEZE HANDS OR FOLLOW ANY DIRECTIONS. PT MED WITH FENTANYL PER EMAR AND PROPOFOL TITRATED BACK ON AFTER 30 MINS NO SEDATION. PT SEDATED AT THIS TIME AND REMAINS ON PRESSURE SUPPORT.
--- NOTE | 2024-08-07 17:43 | NUR ---
SHIFT SUMMARY PT REMAINS INTUBATED AND SEDATED. PT INITIALLY ON ACVC VENT SETTINGS THIS AM. PT REMAINS ON PRESSURE SUPPORT 01/25, FIO2 45% SINCE SBT THIS AFTERNOON. PT SEDATED WITH PROPOFOL AT 40 MCG/KG/MIN AT THIS TIME. PT RESTLESS WITH ANY CARE OR NOXIOUS STIMULI, BUT DOES NOT FOLLOW ANY COMMANDS. CENTRAL LINE TO VAJ C/D/I. NS INFUSING TKO AND CARDIZEM AT 10 MG/HR. VITAL SIGNS HAVE REMAINED STABLE. HR AFIB 110-130'S. OGT REMAINS IN PLACE WITH TF INFUSING AT GOAL RATE. ADAMES TEMP PROBE IN PLACE WITH CLEAR YELLOW URINE OUTPUT NOTED. SBW RESTRAINTS REMAIN IN PLACE. PT HANDS/FEET WARM TO TOUCH AND WITH PALPABLE PULSES. MULIPLE FAMILY MEMBERS AT BEDSIDE THIS SHIFT. WILL CONTINUE TO MONITOR AND REPORT OFF TO ONCOMING RN.
[2024-08-07] MEDS ORDERED: Amiodarone HCl 200 MG Tab PT SCH (21:00)
[2024-08-07] MEDS ORDERED: Apixaban 5 MG Tab PT SCH (21:00)
[2024-08-07] MEDS ORDERED: Sodium Zirconium Cyclosilicate 10 GM Packet PT SCH (21:00)
[2024-08-08] VITALS (85 sets, daily range): BP systolic 70–120; BP diastolic 48–84
[2024-08-08 04:32] LABS: BASOPHILS ABSOLUTE AUTO 0.03 K/mm3 (0.00-0.23); BASOPHILS PERCENT AUTO 1 % (0-2); EOSINOPHILS ABSOLUTE AUTO 0.16 K/mm3 (0.00-0.68); EOSINOPHILS PERCENT AUTO 3 % (0-6); Hematocrit 41.2 % (33.0-51.0); Hemoglobin 13.1 g/dL (11.5-16.0); IMMATURE GRAN ABSOLUTE AUTO 0.04 K/mm3 (0.00-0.10); IMMATURE GRAN PERCENT AUTO 1 % (0-1); LYMPHOCYTES ABSOLUTE AUTO 0.63 K/mm3 (0.84-5.20); LYMPHOCYTES PERCENT AUTO 11 % (21-46); MONOCYTES ABSOLUTE AUTO 0.64 K/mm3 (0.16-1.47); MONOCYTES PERCENT AUTO 11 % (4-13); Mean Corpuscular HGB 27.1 pg (26.0-34.0); Mean Corpuscular HGB Conc 31.8 g/dL (31.5-36.5); Mean Corpuscular Volume 85 fL (80-100); Mean Platelet Volume 9.8 fL (9.1-12.4); NEUTROPHILS ABSOLUTE AUTO 4.14 K/mm3 (1.96-9.15); NEUTROPHILS PERCENT AUTO 74 % (41-73); Platelet Count 232 K/mm3 (150-400); RDW Coefficient Variation 18.9 % (11.7-14.2); RDW Standard Deviation 56.6 fL (35.1-46.3); Red Blood Cell Count 4.84 M/mm3 (3.80-5.20); White Blood Cell Count 5.64 K/mm3 (4.00-11.30)
[2024-08-08 04:52] LABS: Albumin, Blood 2.3 g/dL (3.4-5.0); Anion Gap 10 mmol/L (3-11); Blood Urea Nitrogen 36 mg/dL (8-24); Bun/Creatinine Ratio 27.5 (12.0-20.0); CO2, Blood 27 mmol/L (21-32); Calcium, Blood 8.4 mg/dL (8.5-10.1); Chloride, Blood 106 mmol/L (98-108); Creatinine, Blood 1.31 mg/dL (0.40-1.00); Glomerular Filtration Rate 47 (60-); Glucose, Blood 96 mg/dL (70-99); Phosphorus, Blood 2.3 mg/dL (2.5-4.9); Potassium, Blood 2.8 mmol/L (3.5-5.5); Sodium, Blood 140 mmol/L (136-145)
[2024-08-08] MEDS ORDERED: Potassium Chl 20MEQ/Water100ML 100 ML IV SCH (05:25)
[2024-08-08] MEDS ORDERED: Potassium Chloride 20 MEQ in NS 90 ML IV SCH (05:45)
[2024-08-08] MEDS ORDERED: Levothyroxine Sodium 0.125 MG Tab PT SCH (06:00)
[2024-08-08] MEDS ORDERED: Empagliflozin 10 MG TAB XX SCH (09:00)
[2024-08-08] MEDS ORDERED: Allopurinol 100 MG Tab PT SCH (09:00)
[2024-08-08] MEDS ORDERED: Potassium Phosphate Dibasic 30 MM in Dextrose 5% 500 ML IV STA (10:39)
--- NOTE | 2024-08-08 12:33 | NUR ---
PROVIDER PHONE CALL: Dr Wise updated sedation requirements. Precedex requested. See new orders.
[2024-08-08] MEDS ORDERED: dexmedeTOMIDine 100 ML IV SCH (12:35)
--- NOTE | 2024-08-08 16:39 | NUR ---
PROVIDER UPDATE: Dr Wise updated on pt's hypotension. RN instructed to bolus 500 mls NS
--- NOTE | 2024-08-08 18:11 | NUR ---
SHIFT SUMMARY: Pt tolerated SBT for appoximately 6 hours. While on sedation vacation, pt continuously localized ETT and repositioned in bed. She appeared to give a weak thumbs up to RN. After pt received several doses of PRN versed, precedex was started with good effect; Pt appeared much more comfortable. Heart rate and blood pressure began to trend down and cardizem and sedation was stopped. Pt received a 500ml bolus of NS and levophed started at low dose. Electrolytes replaced; see MAR. She was up in chair for approximately four hours. Family at bedside receiving updates throughout the day. Fluid balance -770 for shift.
[2024-08-08] MEDS ORDERED: Potassium Chl 20MEQ/Water100ML 100 ML IV ONE (18:20)
--- NOTE | 2024-08-08 18:46 | NUR ---
KCL: Total electrolyte adminstration discussed with Dr Wise earlier in the day. Additional 20 meqs ordered and administered to complete the initial AM order of 60 meqs.
--- NOTE | 2024-08-08 20:00 | NUR ---
ASSUMED CARE OF PT AT 1900. REPORT RECEIVED AT BEDSIDE. PT PRESENTS IN BED. INTUBATED: AC, 18, Tv 400, PEEP 7, FIO2 30 PERCENT. PT MAINTAINS SATURATIONS > 90 PERCENT. IS SOMEWHAT RESTLESS TRYING TO SIT UP IN BED TO GRAB AT HER ETT. HAVE INCREASED PROPOFOL FROM 35 TO 40 MCG'S/KG/MIN. LEVOPHED IS AT 2 MCG'S/MIN. WILL REVIEW CHART AND PLAN OF CARE FOR THIS PT.
--- NOTE | 2024-08-08 23:31 | NUR ---
PT MEDICATED WITH 25 MCG'S FENTANYL ADJUNCT TO PROPOFOL THERAPY. PT ABLE TO RELAX AND TOLERATES ETT MUCH BETTER. DOES AWAKEN WITH TURNS AND ATTEMPTS TO GET AHOLD OF HER ETT. DOES NOT REDIRECT. SOFT RESTRAINTS TO KEEP PT SAFE FROM SELF EXTUBATION.
[2024-08-09] VITALS (58 sets, daily range): BP systolic 84–121; BP diastolic 56–87
[2024-08-09 00:06] LABS: Vancomycin, Trough 20.1 ug/mL (5.0-10.0)
[2024-08-09] MEDS ORDERED: Vancomycin HCL 1,250 MG in NS 250 ML IV ONE (03:00)
[2024-08-09 05:57] LABS: BASOPHILS ABSOLUTE AUTO 0.04 K/mm3 (0.00-0.23); BASOPHILS PERCENT AUTO 1 % (0-2); EOSINOPHILS ABSOLUTE AUTO 0.19 K/mm3 (0.00-0.68); EOSINOPHILS PERCENT AUTO 4 % (0-6); Hemoglobin 13.6 g/dL (11.5-16.0); IMMATURE GRAN ABSOLUTE AUTO 0.05 K/mm3 (0.00-0.10); IMMATURE GRAN PERCENT AUTO 1 % (0-1); LYMPHOCYTES ABSOLUTE AUTO 0.79 K/mm3 (0.84-5.20); LYMPHOCYTES PERCENT AUTO 15 % (21-46); MONOCYTES ABSOLUTE AUTO 0.77 K/mm3 (0.16-1.47); MONOCYTES PERCENT AUTO 14 % (4-13); Mean Corpuscular HGB 26.9 pg (26.0-34.0); Mean Corpuscular HGB Conc 31.6 g/dL (31.5-36.5); Mean Corpuscular Volume 85 fL (80-100); NEUTROPHILS ABSOLUTE AUTO 3.59 K/mm3 (1.96-9.15); NEUTROPHILS PERCENT AUTO 66 % (41-73); Platelet Count 247 K/mm3 (150-400); RDW Coefficient Variation 19.3 % (11.7-14.2); RDW Standard Deviation 58.4 fL (35.1-46.3); Red Blood Cell Count 5.05 M/mm3 (3.80-5.20); White Blood Cell Count 5.43 K/mm3 (4.00-11.30)
[2024-08-09 06:27] LABS: Albumin, Blood 2.2 g/dL (3.4-5.0); Anion Gap 11 mmol/L (3-11); Blood Urea Nitrogen 33 mg/dL (8-24); Bun/Creatinine Ratio 31.7 (12.0-20.0); CO2, Blood 26 mmol/L (21-32); Calcium, Blood 8.2 mg/dL (8.5-10.1); Chloride, Blood 105 mmol/L (98-108); Creatinine, Blood 1.04 mg/dL (0.40-1.00); Glomerular Filtration Rate 62 (60-); Glucose, Blood 112 mg/dL (70-99); Magnesium, Blood 1.6 mg/dL (1.6-2.4); Phosphorus, Blood 2.4 mg/dL (2.5-4.9); Potassium, Blood 3.3 mmol/L (3.5-5.5); Sodium, Blood 139 mmol/L (136-145)
--- NOTE | 2024-08-09 06:47 | NUR ---
PT HAS HAD DIFFICULTIES IN TOLERATING VENT. SHE DOES TRY TO SIT FORWARD AND RAISES HER HANDS TOWARDS THE ETT. PT HAS NOT BEEN ABLE TO GET CLOSE TO TUBE. HAVE MEDICATED PT WITH 25 MCG'S FENTANYL AT TIMES THROUGH THE NIGHT. THIS DOES HELP PT WITH TOLERANCE. HAVE NEEDED TO INCRIMENT PROPOFOL UP TO 50 MCG'S/KG/MIN. HAS BEEN TURNED Q 2 HOURS THROUGH THE SHIFT. HAS HAD FULL BEDBATH WITH FULL LINEN CHANGE. REMAINS WITH VENT UNCHANGED SETTINGS PER BEGINNING OF SHIFT. AC 18, Tv 400, PEEP 7 AND FIO2 30 PERCENT. MAINTAINS SATURATIONS > 90 PERCENT. WILL CONTINUE TO MONITOR PT, AND WILL REPORT OFF TO ONCOMING RN.
--- NOTE | 2024-08-09 09:29 | NUR ---
[place] of care: Agitated with RASS of +2. Moves all extremities but does not follow commands. PRN versed & fentanyl given. Pupils equal/reactive. Propofol infusing at 60 mcgs/kg/min. Norepi at 2 mcgs infusing. Stable vital signs. On AC/VC 18/400/7/30%. Potter catheter patent & secure, CVC in place. TF infusing at goal. Will continue to monitor.
[2024-08-09] MEDS ORDERED: Potassium Chloride 20 MEQ TabCR PT ONE (09:45)
[2024-08-09] MEDS ORDERED: Potassium Chloride 20 MEQ/15 ML UDC PT ONE (09:50)
[2024-08-09] MEDS ORDERED: LORazepam 2 MG/ML 1ML Injection IV PRN (11:05)
[2024-08-09] MEDS ORDERED: Sertraline HCl 50 MG Tab PO SCH (13:00)
[2024-08-09] MEDS ORDERED: Nystatin 100,000 Unit/GM CREAM 15 GM TOP SCH (14:30)
[2024-08-09] MEDS ORDERED: Gabapentin 100 MG Cap PO SCH (21:00)
[2024-08-10] VITALS (23 sets, daily range): BP systolic 76–153; BP diastolic 57–97
[2024-08-10 03:03] LABS: BASOPHILS ABSOLUTE AUTO 0.02 K/mm3 (0.00-0.23); BASOPHILS PERCENT AUTO 1 % (0-2); EOSINOPHILS ABSOLUTE AUTO 0.19 K/mm3 (0.00-0.68); EOSINOPHILS PERCENT AUTO 5 % (0-6); Hemoglobin 13.7 g/dL (11.5-16.0); IMMATURE GRAN ABSOLUTE AUTO 0.04 K/mm3 (0.00-0.10); IMMATURE GRAN PERCENT AUTO 1 % (0-1); LYMPHOCYTES ABSOLUTE AUTO 0.79 K/mm3 (0.84-5.20); LYMPHOCYTES PERCENT AUTO 20 % (21-46); MONOCYTES ABSOLUTE AUTO 0.63 K/mm3 (0.16-1.47); MONOCYTES PERCENT AUTO 16 % (4-13); Mean Corpuscular HGB Conc 31.1 g/dL (31.5-36.5); Mean Corpuscular Volume 87 fL (80-100); Mean Platelet Volume 9.7 fL (9.1-12.4); NEUTROPHILS ABSOLUTE AUTO 2.38 K/mm3 (1.96-9.15); NEUTROPHILS PERCENT AUTO 59 % (41-73); Platelet Count 210 K/mm3 (150-400); RDW Coefficient Variation 19.1 % (11.7-14.2); RDW Standard Deviation 58.9 fL (35.1-46.3); Red Blood Cell Count 5.08 M/mm3 (3.80-5.20); White Blood Cell Count 4.05 K/mm3 (4.00-11.30)
[2024-08-10 03:26] LABS: Magnesium, Blood 1.6 mg/dL (1.6-2.4)
[2024-08-10 03:27] LABS: Albumin, Blood 2.3 g/dL (3.4-5.0); Anion Gap 9 mmol/L (3-11); Blood Urea Nitrogen 29 mg/dL (8-24); Bun/Creatinine Ratio 34.7 (12.0-20.0); CO2, Blood 29 mmol/L (21-32); Calcium, Blood 8.2 mg/dL (8.5-10.1); Chloride, Blood 109 mmol/L (98-108); Creatinine, Blood 0.84 mg/dL (0.40-1.00); Glomerular Filtration Rate 81 (60-); Glucose, Blood 93 mg/dL (70-99); Phosphorus, Blood 2.6 mg/dL (2.5-4.9); Potassium, Blood 3.7 mmol/L (3.5-5.5); Sodium, Blood 143 mmol/L (136-145)
--- NOTE | 2024-08-10 05:25 | NUR ---
BEDSIDE SWALLOW AT APPROX 0330 PT WAS ALERT AND ASKING FOR WATER. I TRIED ICE CHIPS FIRST AND SHE DID GREAT SO MOVED ON TO A BEDSIDE SWALLOW WITH WATER AND SHE PASSED. NO COUGHING, DROP IN SATS, OR COMPLAINTS OF ANY UNCOMFORTABLE FEELINGS, AND NO N/V AFTERWARD. LSCTA.
[2024-08-10] MEDS ORDERED: Metoprolol Tartrate 1 MG/ML 5 ML VIAL IV ONE (13:00)
[2024-08-10] MEDS ORDERED: Metoprolol Tartrate 25 MG Tab PO SCH (13:30)
[2024-08-10] MEDS ORDERED: HyDROXyzine HCl 25 MG Tab PO PRN (14:15)
[2024-08-10] MEDS ORDERED: Hydrocortisone 1% Cream 30 gm TOP PRN (14:15)
[2024-08-10 16:37] LABS: Vancomycin, Random 17.5 ug/mL
[2024-08-10] MEDS ORDERED: Vancomycin HCL 1,000 MG in NS 250 ML IV ONE (16:50)
[2024-08-10] MEDS ORDERED: Bumetanide 1 MG Tab PO SCH (18:00)
--- NOTE | 2024-08-10 18:34 | NUR ---
Summary. Pt improved this shift. Off precedex, central line removed, on consistent carb diet. Pt initially having some visual illusions after precedex discontinued but cleared up this afternoon. Alert and oriented at this time. Pt up to bedside commode multiple times this afternoon for soft bowel movements. Potter removed. No acute events this shift, family updated at bedside this afternoon. See chart for further details.
[2024-08-10] MEDS ORDERED: Ondansetron HCl 2 MG / ML 2ML Vial IV PRN (18:45)
[2024-08-10] MEDS ORDERED: Gabapentin 100 MG Cap PO ONE (21:00)
[2024-08-11] VITALS (12 sets, daily range): BP systolic 94–137; BP diastolic 67–107
[2024-08-11] MEDS ORDERED: Digoxin 0.25 MG/ML 2ML Amp IV SCH (08:00)
[2024-08-11 08:17] LABS: BASOPHILS ABSOLUTE AUTO 0.06 K/mm3 (0.00-0.23); BASOPHILS PERCENT AUTO 1 % (0-2); EOSINOPHILS ABSOLUTE AUTO 0.22 K/mm3 (0.00-0.68); EOSINOPHILS PERCENT AUTO 4 % (0-6); Hematocrit 47.7 % (33.0-51.0); IMMATURE GRAN ABSOLUTE AUTO 0.06 K/mm3 (0.00-0.10); IMMATURE GRAN PERCENT AUTO 1 % (0-1); LYMPHOCYTES ABSOLUTE AUTO 1.48 K/mm3 (0.84-5.20); LYMPHOCYTES PERCENT AUTO 28 % (21-46); MONOCYTES ABSOLUTE AUTO 0.83 K/mm3 (0.16-1.47); MONOCYTES PERCENT AUTO 16 % (4-13); Mean Corpuscular HGB Conc 31.4 g/dL (31.5-36.5); Mean Corpuscular Volume 86 fL (80-100); Mean Platelet Volume 9.9 fL (9.1-12.4); NEUTROPHILS ABSOLUTE AUTO 2.62 K/mm3 (1.96-9.15); NEUTROPHILS PERCENT AUTO 50 % (41-73); Platelet Count 245 K/mm3 (150-400); RDW Coefficient Variation 19.3 % (11.7-14.2); RDW Standard Deviation 58.5 fL (35.1-46.3); Red Blood Cell Count 5.56 M/mm3 (3.80-5.20); White Blood Cell Count 5.27 K/mm3 (4.00-11.30)
[2024-08-11 08:41] LABS: Albumin, Blood 2.8 g/dL (3.4-5.0); Albumin/Globulin Ratio 0.7 (0.8-1.8); Bilirubin, Total 2.8 mg/dL (0.1-1.0); Bun/Creatinine Ratio 26.1 (12.0-20.0); Calcium, Blood 9.1 mg/dL (8.5-10.1); Creatinine, Blood 0.96 mg/dL (0.40-1.00); Globulin, Blood 3.9 g/dL (2.2-4.0); Magnesium, Blood 1.8 mg/dL (1.6-2.4); Phosphorus, Blood 2.3 mg/dL (2.5-4.9); Potassium, Blood 3.6 mmol/L (3.5-5.5); Total Protein, Blood 6.7 g/dL (6.4-8.2)
[2024-08-11 12:38] LABS: Vancomycin, Random 21.1 ug/mL
--- NOTE | 2024-08-11 12:52 | NUR ---
AFTER BSR THIS AM, CAME BY AND FOUND PATIENT HALF IN AND HALF OUT OF BED. PT ASSISTED TO RECLINER WITH GAIT BELT, WALKER AND . PT HAS BEEN DOING WELL UP IN THE CHAIR, EATING MEALS AND VISITING WITH FAMILY. HEART RATE REMAINS >120, 2ND DOSE OF DIG GIVEN PER ORDERS. BP STABLE.
--- NOTE | 2024-08-11 18:06 | NUR ---
ABDULKADIR HAS BEEN UP IN THE CHAIR FOR THE MAJORITY OF THE DAY. SHE HAD A BATH AND LINEN CHANGE WHILE IN THE CHAIR, SHE TOLERATED STANDING USING THE WALKER FAIRLY WELL. SHE HAS BEEN TRYING TO EAT BY HERSELF. SHE IS VERY SLOW BUT ABLE TO GET FOOD IN. SHE CONTINUES TO SPEAK IN A WHISPER, DIFFICULT TO HEAR AT TIMES. HEART RATE BEGINNING TO HOVER IN THE 140S. CALL PLACED TO . PT VERY SLEEPY, BEGAN TO FALL ASLEEP WHILE EATING. SHE WILL OCC HAVE VISIONS OF THINGS/PEOPLE/OBJECTS IN THE ROOM. PHONED BACK. ORDERS RECEIVED.
[2024-08-11] MEDS ORDERED: Metoprolol Tartrate 1 MG/ML 5 ML VIAL IV ONE (18:15)
[2024-08-11] MEDS ORDERED: Metoprolol Succinate 50 MG TABCR PO SCH (21:00)
[2024-08-11] MEDS ORDERED: Gabapentin 300 MG Cap PO SCH (21:00)
[2024-08-11] MEDS ORDERED: Metoprolol Tartrate 1 MG/ML 5 ML VIAL IV PRN (22:55)
[2024-08-12] VITALS (15 sets, daily range): BP systolic 102–126; BP diastolic 70–111
[2024-08-12] MEDS ORDERED: Vancomycin HCL 1,500 MG in NS 250 ML IV SCH
[2024-08-12] MEDS ORDERED: Digoxin 0.25 MG/ML 2ML Amp IV SCH (01:55)
[2024-08-12 02:31] LABS: Bun/Creatinine Ratio 21.2 (12.0-20.0); Creatinine, Blood 1.04 mg/dL (0.40-1.00); Magnesium, Blood 1.7 mg/dL (1.6-2.4); Potassium, Blood 3.7 mmol/L (3.5-5.5)
[2024-08-12] MEDS ORDERED: Magnesium Sulf 2 GM/Water 50ML 50 ML IV ONE (02:40)
--- NOTE | 2024-08-12 02:42 | NUR ---
UPDATE 2255 PT HEART RATE REMAINS 120-140s AFIB RVR AFTER ONE TIME DOSE OF METOPROLOL 5 MG IVP AT 1820, SCHEDULED PO AMIODARONE, AND METOPROLOL PO, CALLED AND SPOKE WITH MD WITH NEW ORDERS RECEIVED FOR METOPROLOL 5 MG IVP PRN Q4 HOURS, METOPROLOL GIVEN IVP AT THIS TIME 0155 PT REMAINS IN AFIB RVR 115-140S, MAINLY 120-140s, CALLED AND NOTIFIED MD OF ABOVE MEDS GIVEN WITH NO CHANGE IN RATE, NEW ORDERS RECEIVED 023 DIGOXIN 0.25 MG IVP AT THIS TIME 023 CALLED AND SPOKE WITH MD REGARDING LAB RESULTS WITH NEW ORDERS RECEIVED FOR MAG AND POTASSIUM REPLACEMENT
[2024-08-12] MEDS ORDERED: Potassium Chl 20MEQ/Water100ML 100 ML IV SCH (02:45)
[2024-08-12] MEDS ORDERED: Potassium Chloride 40 MEQ in NS 250 ML IV ONE (02:55)
--- NOTE | 2024-08-12 06:30 | NUR ---
SHIFT SUMMARY PT AFIB RVR ALL SHIFT, MEDICATED WITH METOPROLOL IVP X2, DIGOXIN X1, RATE DECREASED FROM 120-140s NOW 105-118s, SBP 100-120s, MAP>65, ON RA SPO2>90%, PUREWICK IN PLACE WITH GOOD OUTPUT NOTED, PT CONTINUES TO HALLUCINATE AND TALK TO SELF, STAES " ALL THESE HANDSOME MEN IN MY ROOM" WHEN GIVING PO AM MED, PT STATES " LET HIM TAKE IT" POINTING TO CORNER OF ROOM WITH CABINETS WITH NOONE THERE. PT PLEASANT AND FOLLOWS COMMANDS, DENIES CO/PAIN OR NEEDS, BED ALARM ON, SIDE RAILS UP X3 CALL LIGHTIN REACH
[2024-08-12] MEDS ORDERED: Potassium Chloride 10 Meq Tablet SA PO SCH (09:00)
[2024-08-12] MEDS ORDERED: Spironolactone 25 MG Tab PO SCH (09:00)
[2024-08-12] MEDS ORDERED: Magnesium Oxide 400 MG Tab PO SCH (09:00)
[2024-08-12 09:32] LABS: BASOPHILS ABSOLUTE AUTO 0.08 K/mm3 (0.00-0.23); BASOPHILS PERCENT AUTO 1 % (0-2); EOSINOPHILS ABSOLUTE AUTO 0.19 K/mm3 (0.00-0.68); EOSINOPHILS PERCENT AUTO 3 % (0-6); Hematocrit 52.1 % (33.0-51.0); Hemoglobin 16.3 g/dL (11.5-16.0); IMMATURE GRAN ABSOLUTE AUTO 0.05 K/mm3 (0.00-0.10); IMMATURE GRAN PERCENT AUTO 1 % (0-1); LYMPHOCYTES ABSOLUTE AUTO 1.55 K/mm3 (0.84-5.20); LYMPHOCYTES PERCENT AUTO 26 % (21-46); MONOCYTES ABSOLUTE AUTO 1.02 K/mm3 (0.16-1.47); MONOCYTES PERCENT AUTO 17 % (4-13); Mean Corpuscular HGB Conc 31.3 g/dL (31.5-36.5); Mean Corpuscular Volume 86 fL (80-100); Mean Platelet Volume 9.4 fL (9.1-12.4); NEUTROPHILS ABSOLUTE AUTO 3.03 K/mm3 (1.96-9.15); NEUTROPHILS PERCENT AUTO 51 % (41-73); Platelet Count 220 K/mm3 (150-400); RDW Coefficient Variation 19.4 % (11.7-14.2); RDW Standard Deviation 59.3 fL (35.1-46.3); Red Blood Cell Count 6.04 M/mm3 (3.80-5.20); White Blood Cell Count 5.92 K/mm3 (4.00-11.30)
[2024-08-12 09:49] LABS: Albumin, Blood 2.8 g/dL (3.4-5.0); Albumin/Globulin Ratio 0.7 (0.8-1.8); Bilirubin, Total 2.7 mg/dL (0.1-1.0); Calcium, Blood 9.2 mg/dL (8.5-10.1); Globulin, Blood 4.1 g/dL (2.2-4.0); Potassium, Blood 3.9 mmol/L (3.5-5.5); Total Protein, Blood 6.9 g/dL (6.4-8.2)
--- NOTE | 2024-08-12 18:42 | NUR ---
ABDULKADIR IS IMPROVED TODAY FROM YESTERDAY, SHE IS STRONGER ABLE TO FEED HERSELF, MOVE BETTER AND STOOD TALLER, USED THE BSC TODAY FOR A BM, HAD A NAP IN THE RECLINER, TOOK IN MORE OF HER MEALS, COMMUNICATED WELL WITH VISITORS, REMEMBERED MORE OF CONVERSATIONS FROM THE MORNING. LESS VISUAL HALLUCINATIONS TODAY. COUGH IS CLEARING, LESS PRODUCTION, LUNGS CLEAR. CONTINUES WITH PUREWICK, GOOD RESPONSE TO ORAL DIURETICS.
[2024-08-13] VITALS (7 sets, daily range): BP systolic 90–112; BP diastolic 61–84
[2024-08-13 07:33] LABS: BASOPHILS ABSOLUTE AUTO 0.06 K/mm3 (0.00-0.23); BASOPHILS PERCENT AUTO 1 % (0-2); EOSINOPHILS ABSOLUTE AUTO 0.14 K/mm3 (0.00-0.68); EOSINOPHILS PERCENT AUTO 3 % (0-6); Hematocrit 54.1 % (33.0-51.0); Hemoglobin 16.7 g/dL (11.5-16.0); IMMATURE GRAN ABSOLUTE AUTO 0.03 K/mm3 (0.00-0.10); IMMATURE GRAN PERCENT AUTO 1 % (0-1); LYMPHOCYTES PERCENT AUTO 25 % (21-46); MONOCYTES ABSOLUTE AUTO 0.84 K/mm3 (0.16-1.47); MONOCYTES PERCENT AUTO 17 % (4-13); Mean Corpuscular HGB 26.7 pg (26.0-34.0); Mean Corpuscular HGB Conc 30.9 g/dL (31.5-36.5); Mean Corpuscular Volume 86 fL (80-100); Mean Platelet Volume 9.9 fL (9.1-12.4); NEUTROPHILS ABSOLUTE AUTO 2.58 K/mm3 (1.96-9.15); NEUTROPHILS PERCENT AUTO 53 % (41-73); Platelet Count 216 K/mm3 (150-400); RDW Coefficient Variation 19.4 % (11.7-14.2); RDW Standard Deviation 59.1 fL (35.1-46.3); Red Blood Cell Count 6.26 M/mm3 (3.80-5.20); White Blood Cell Count 4.85 K/mm3 (4.00-11.30)
[2024-08-13 07:45] LABS: Albumin, Blood 2.7 g/dL (3.4-5.0); Albumin/Globulin Ratio 0.7 (0.8-1.8); Bilirubin, Total 2.6 mg/dL (0.1-1.0); Bun/Creatinine Ratio 17.6 (12.0-20.0); Calcium, Blood 9.3 mg/dL (8.5-10.1); Creatinine, Blood 1.08 mg/dL (0.40-1.00); Globulin, Blood 3.9 g/dL (2.2-4.0); Potassium, Blood 3.9 mmol/L (3.5-5.5); Total Protein, Blood 6.6 g/dL (6.4-8.2)
--- NOTE | 2024-08-13 08:30 | NUR ---
[place] of care: Awaiting PCU bed. Alert & oriented. OOB to chair. Vital signs stable on room air. Afib up to 130s. Taking good PO. Will continue to monitor.
[2024-08-13] MEDS ORDERED: Allopurinol 100 MG Tab PT SCH (09:00)
[2024-08-13] MEDS ORDERED: Digoxin 0.25 MG Tab PO SCH (09:00)
[2024-08-13 11:35] LABS: Vancomycin, Trough 14.7 ug/mL (5.0-10.0)
--- NOTE | 2024-08-13 17:00 | NUR ---
Shift summary: Alert & oriented, ambulating around room with walker. Vital signs stable except for heart rate which varies from 110-140 in atrial fib. Provider aware. Continue current medication regimen. On room air with clear lung sounds. BM x2, voided multiple times. Good PO intake. PIV x2 in place. Patient updated on plan of care. Continue to await PCU bed.
--- NOTE | 2024-08-13 19:48 | NUR ---
ASSESSMENT/ASSUMED CARE PT SITTING UP IN CHAIR. BACK TO BED WITH BRUSH HOLDER ASSEMBLER AND WALKER. REGLA CARE AND ATTENDS CHANGED DONE. A&O X3. SAID YEAR WAS,"[id number]". REORIENTED TO YEAR. DENIES PAIN OR DISCOMFORT. LUNGS CLEAR BUT DECREASED IN THE BASES ON ROOMAIR. RESP EVEN AND NONLABORED. HEART RATE IRREGULAR 100-120'S. BP STABLE. NO EDEMA. BT+ ABD SOFT AND NONTENDER. IV TO RIGHT AND LEFT AC SALINE LOCKED. SITES CLEAR AND ABLE TO FLUSH WITHOUT DIFFICULTY.
[2024-08-14 03:38] VITALS: BP 112/71
[2024-08-14 03:42] LABS: BASOPHILS ABSOLUTE AUTO 0.07 K/mm3 (0.00-0.23); BASOPHILS PERCENT AUTO 1 % (0-2); EOSINOPHILS ABSOLUTE AUTO 0.16 K/mm3 (0.00-0.68); EOSINOPHILS PERCENT AUTO 3 % (0-6); Hematocrit 50.4 % (33.0-51.0); IMMATURE GRAN ABSOLUTE AUTO 0.05 K/mm3 (0.00-0.10); IMMATURE GRAN PERCENT AUTO 1 % (0-1); LYMPHOCYTES ABSOLUTE AUTO 1.49 K/mm3 (0.84-5.20); LYMPHOCYTES PERCENT AUTO 26 % (21-46); MONOCYTES ABSOLUTE AUTO 1.04 K/mm3 (0.16-1.47); MONOCYTES PERCENT AUTO 18 % (4-13); Mean Corpuscular HGB 27.1 pg (26.0-34.0); Mean Corpuscular HGB Conc 31.7 g/dL (31.5-36.5); Mean Corpuscular Volume 85 fL (80-100); NEUTROPHILS ABSOLUTE AUTO 2.83 K/mm3 (1.96-9.15); NEUTROPHILS PERCENT AUTO 50 % (41-73); Platelet Count 235 K/mm3 (150-400); RDW Coefficient Variation 19.3 % (11.7-14.2); RDW Standard Deviation 56.9 fL (35.1-46.3); Red Blood Cell Count 5.91 M/mm3 (3.80-5.20); White Blood Cell Count 5.64 K/mm3 (4.00-11.30)
[2024-08-14 04:40] LABS: Alanine Aminotransfer (ALT/SGP 37 U/L (12-78); Albumin, Blood 2.7 g/dL (3.4-5.0); Albumin/Globulin Ratio 0.7 (0.8-1.8); Alk Phos 311 U/L (50-136); Anion Gap 10 mmol/L (3-11); Aspartate Aminotrans (AST/SGOT 39 U/L (12-37); Bilirubin, Total 2.2 mg/dL (0.1-1.0); Blood Urea Nitrogen 23 mg/dL (8-24); Bun/Creatinine Ratio 20.9 (12.0-20.0); CO2, Blood 34 mmol/L (21-32); Calcium, Blood 9.3 mg/dL (8.5-10.1); Chloride, Blood 96 mmol/L (98-108); Digoxin (Lanoxin) 1.69 ug/mL (0.80-2.00); Globulin, Blood 3.9 g/dL (2.2-4.0); Glomerular Filtration Rate 58 (60-); Glucose, Blood 95 mg/dL (70-99); Potassium, Blood 3.8 mmol/L (3.5-5.5); Sodium, Blood 136 mmol/L (136-145); Total Protein, Blood 6.6 g/dL (6.4-8.2)
--- NOTE | 2024-08-14 06:14 | NUR ---
SHIFT SUMMARY PT RESTING QUIETLY AT THIS TIME. TURNING AND MOVING SELF IN BED. UP TO THE BATHROOM DURING THE NIGHT WITH WALKER AND STANDBY ASSIST. PT CONT AND INCONT OF URINE. STARTED ON 2 LITER O2 VIA NC FOR SPO2 DOWN TO 87% ON ROOMAIR WHILE SLEEPING. WITH O2 AT 2 LITERS SPO2 REMAINED GREATER THAN 92%. REPORT TO ON COMING NURSE
[2024-08-14] MEDS ORDERED: Arginine/Glutamine/Calcium Hmb 1 Packet PT SCH (09:00)
[2024-08-14 09:30] VITALS: BP 121/89
--- NOTE | 2024-08-14 10:59 | NUR ---
ASSUMED CARE OF PATIENT AT APPROXIMATELY 0700. REPORT RECEIVED FROM ROSANA SARKAR. PT ASLEEP IN BED AT TIME OF BEDSIDE REPORT. CONTINUOUS CARDIAC MONITORING IN PLACE SHOWS AFIB. ON 2LPM O2 VIA NC WITH O2 SATURATION > 92%. NO ACUTE NEEDS IDENTIFIED AT THIS TIME. SEE SHIFT ASSESSMENT FOR FULL DETAILS.
[2024-08-14 11:47] VITALS: BP 92/57
--- NOTE | 2024-08-14 18:03 | NUR ---
SHIFT SUMMARY PT REMAINED ALERT AND ORIENTED X 4 T/O ENTIRETY OF SHIFT. ABLE TO FOLLOW COMMANDS, MAKE PURPOSEFUL MOVEMENTS, AND MAKE NEEDS KNOWN. AFEBRILE AND DENIES PAIN. AMBULATES TO BSC WITH SBA. PT HAS RECEIVED FWW THIS VISIT THAT SHE CURRENTLY UTILIZES. CONTINOUS CARDIAC MONITORING IN PLACE SHOWS AFIB WITH HR IN 100'S-130'S. BP SOFT BUT MAP REMAINED > 65. ON 2LPM c HS, OTHERWISE ON RA WITH O2 SATURATIONS > 92%. OVERNIGHT PULSE OXIMETRY ORDERED. ONE BM THIS SHIFT. VOIDING IN BSC. TOLERATING PO INTAKE WELL. DENIES N/V/D. WILL CONTINUE TO MONITOR AND REPORT TO ONCOMING RN.
[2024-08-14 20:00] VITALS: BP 115/89
[2024-08-15] VITALS: BP 107/67
[2024-08-15 03:46] VITALS: BP 111/61
[2024-08-15 04:00] VITALS: BP 111/61
--- NOTE | 2024-08-15 05:22 | NUR ---
SHIFT SUMMARY PATIENT HAD A LARGE LOOSE BM AND NEEDED A SHIFT WHEN NURSE CAME ON SHIFT. PATIENT WAS SHOWERED AND LINENS AND GOWN WERE CHANGED. PATIENT SLEPT MOST OF SHIFT AND HAD OVERNIGHT PULSE OX STUDY FINISHED. A&OX4, PATIENT'S SISTERS CAME TO [facility] FROM [place] BUT DECIDED NOT TO STOP BY TONIGHT DUE TO THE TIME, PATIENT SEEMED SAD ABOUT IT. SISTERS WERE BE BY IN AM PER PATIENT. SBP 110-120'S HR IN THE 90-110'S afib, HAS 20G AC IN RIGHT AND LEFT, USES WALKER TO GET AROUND FROM BED TO SHOWER AND BED TO TOILET ONE PERSON ASSIST. PATIENT ABLT TO MOVE SELF IN BED FOR REPOSITIONING. HAS DEPENDS ON FOR INCONTINENCE AND A PUREWICK IN PLACE. TEGADERM ON RIGHT SIDE OF NECK FROM A RIJ CENTRAL LINE THAT WAS REMOVED SMALL AMOUNT OF BLOOD UNDER DRESSING BUT NO ACTIVE BLEEDING ON SHIFT. 90%-92% O2 SAT ON ROOM AIR WHILE SLEEPING. CALL LIGHT WITHIN REACH.
[2024-08-15 05:34] LABS: BASOPHILS ABSOLUTE AUTO 0.08 K/mm3 (0.00-0.23); BASOPHILS PERCENT AUTO 2 % (0-2); EOSINOPHILS PERCENT AUTO 2 % (0-6); Hemoglobin 16.5 g/dL (11.5-16.0); IMMATURE GRAN ABSOLUTE AUTO 0.06 K/mm3 (0.00-0.10); IMMATURE GRAN PERCENT AUTO 1 % (0-1); LYMPHOCYTES ABSOLUTE AUTO 1.59 K/mm3 (0.84-5.20); LYMPHOCYTES PERCENT AUTO 30 % (21-46); MONOCYTES ABSOLUTE AUTO 0.98 K/mm3 (0.16-1.47); MONOCYTES PERCENT AUTO 19 % (4-13); Mean Corpuscular HGB Conc 31.7 g/dL (31.5-36.5); Mean Corpuscular Volume 85 fL (80-100); Mean Platelet Volume 9.6 fL (9.1-12.4); NEUTROPHILS ABSOLUTE AUTO 2.42 K/mm3 (1.96-9.15); NEUTROPHILS PERCENT AUTO 46 % (41-73); Platelet Count 236 K/mm3 (150-400); RDW Coefficient Variation 19.4 % (11.7-14.2); RDW Standard Deviation 57.3 fL (35.1-46.3); White Blood Cell Count 5.23 K/mm3 (4.00-11.30)
[2024-08-15 06:20] LABS: Albumin, Blood 2.7 g/dL (3.4-5.0); Albumin/Globulin Ratio 0.6 (0.8-1.8); Bilirubin, Total 2.1 mg/dL (0.1-1.0); Bun/Creatinine Ratio 33.3 (12.0-20.0); Calcium, Blood 9.5 mg/dL (8.5-10.1); Creatinine, Blood 1.02 mg/dL (0.40-1.00); Globulin, Blood 4.2 g/dL (2.2-4.0); Potassium, Blood 3.9 mmol/L (3.5-5.5); Total Protein, Blood 6.9 g/dL (6.4-8.2)
[2024-08-15 07:44] VITALS: BP 102/63
--- NOTE | 2024-08-15 08:07 | NUR ---
TRANSFER TO PCU: THIS RN TO ASSUME CARE OF PT AT APPROX 0630. REPORT FROM GAYE WAYNE. PT MOVED TO ROOM PCU6 [facility]IA [facility] BED. PT WAS ABLE TO STAND AND TRANSFER TO BED AND THEN AMBULATE TO THE BATHROOM WITH SBA. BELONGINGS WERE COLLECTED AND TAKEN TO ROOM WITH PT. PT REPORTS HAVING HER PHONE IN HER BED WITH HER. THIS RN ALONG WITH OTHER STAFF ARE UNABLE TO LOCATE PTS PHONE, DISPITE CALLING IT. FAMILY NOTIFIED THAT PT WAS MOVED TO A NEW ROOM. PT PLACED ON TELE. VSS. NO ACUTE STRESS AT THIS TIME. WILL CONTIUE TO CARE FOR PT FOR REMAINDER OF SHIFT. CALL LIGHT IN REACH.
[2024-08-15 09:54] VITALS: BP 132/74
[2024-08-15] MEDS ORDERED: DIGOX125 MC1 PO (11:41)
== END 2024-08-15 12:32 | disposition home health service (06) | DRG 870 ==
LOC: ER 22:40 → ICUE 22:41 → PCU 22:41 → ERHOLD 22:41 → ICUE 08-05 02:40 → PCU 08-15 07:28
PROVIDERS: Emergency Medicine; Hospitalist; Internal Medicine; Internal Medicine Critical Care Medicine; Student in an Organized Health Care Education/Training Program; ADMIT Student in an Organized Health Care Education/Training Program
PROC: 5A1955Z Respiratory Ventilation, Greater than 96 Consecutive Hours (ICD-10-PCS; principal; 2024-08-05)
PROC: 02HV33Z Insertion of Infusion Device into Superior Vena Cava, Percutaneous Approach (ICD-10-PCS; 2024-08-05)
PROC: 0BH17EZ Insertion of Endotracheal Airway into Trachea, Via Natural or Artificial Opening (ICD-10-PCS; 2024-08-05)
PROC: 3E043XZ Introduction of Vasopressor into Central Vein, Percutaneous Approach (ICD-10-PCS; 2024-08-05)
PROC: 3E03329 Introduction of Other Anti-infective into Peripheral Vein, Percutaneous Approach (ICD-10-PCS; 2024-08-05)
DX: A41.9 Sepsis, unspecified organism (principal); G92.8 Other toxic encephalopathy; I50.23 Acute on chronic systolic (congestive) heart failure; J15.212 Pneumonia due to Methicillin resistant Staphylococcus aureus; J96.01 Acute respiratory failure with hypoxia; R65.21 Severe sepsis with septic shock; R57.0 Cardiogenic shock; K66.1 Hemoperitoneum; I48.20 Chronic atrial fibrillation, unspecified; R18.8 Other ascites; N17.9 Acute kidney failure, unspecified; F15.151 Other stimulant abuse with stimulant-induced psychotic disorder with hallucinations; E87.20 Acidosis, unspecified; I47.10 Supraventricular tachycardia, unspecified; I42.7 Cardiomyopathy due to drug and external agent; I08.1 Rheumatic disorders of both mitral and tricuspid valves; I73.00 Raynaud's syndrome without gangrene; E03.9 Hypothyroidism, unspecified; E11.9 Type 2 diabetes mellitus without complications; R91.1 Solitary pulmonary nodule; G40.909 Epilepsy, unspecified, not intractable, without status epilepticus; M10.9 Gout, unspecified; I27.29 Other secondary pulmonary hypertension; F17.290 Nicotine dependence, other tobacco product, uncomplicated; I11.0 Hypertensive heart disease with heart failure; F41.9 Anxiety disorder, unspecified; E87.5 Hyperkalemia; Z79.890 Hormone replacement therapy; Z79.84 Long term (current) use of oral hypoglycemic drugs; Z79.01 Long term (current) use of anticoagulants
CPT/HCPCS: 31500; 36415; 36556; 36600; 51702; 71045; 71046; 71260; 76705; 80048; 80053; 80069; 80162; 80202; 81001; 82247; 82248; 82803; 82947; 83605; 83735; 83880; 84100; 84145; 84439; 84443; 84478; 84484; 85025; 85379; 85610; 85730; 87040; 87070; 87077; 87086; 87106; 87147; 87186; 87205; 87428-QW; 93005; 93010; 93306; 93925; 93930; 94002; 94003; 94762; 99285-25; A9270; C1751; J0282; J0330; J0456; J0692; J0696; J1160; J1815; J1940; J2060; J2250; J2405; J2470; J2704; J3010; J3370; J3475; J3480; J7040; J7050; J7060; J7799; Q9967